=== PATIENT | female | born 1970 | race Caucasian/White ===

== ENCOUNTER 2021-12-14 09:02 | Outpatient (CLI) | payer OTHER, SELFPAY ==
--- OUTSIDE RECORDS SUMMARY | 2021-12-14 09:06 | XMS_ITS | Encounter Summary ---
:1970 Author Organization [place] Address [address] [place] [address] Care Team Providers Name Role Phone Clinic, [facility] Primary Care Provide r Bernardo Nguyen MD Unavailable [phone] Reason for Referral Consultation (Routine) - Closed Specialty Diagnoses / Procedures Referred By Contact Refer red To Contact Medical Oncology Diagnoses Family history of carrier of genetic disease Generic External Data Department Referral ID Status Reason Start Date Expiration Date Visits Requ ested Visits Authorized [id number] Closed 12/28/2019 12/27/2020 1 1 Scheduling Instructions Referred for Genetic Counseling for fami ly history of cancer by Katherine Briceño PA-C. 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 Encounter Details Date Type Department Care Team Description 12/28/2019 Transcribe Orders GENERIC EXTERNAL Provider, Generic F amily history of carrier of genetic disease (Primary Dx); DATA DEPARTMENT External Data Personal hi story of malignant neoplasm of thyroid Social History Tobacco Use Types Packs/Day Years Used Date Smoking Tobacco: Never Smokeless Tobacco: Never Alcohol Use Standard Drinks/Week Comments No 0 (1 standard drink = 0.6 oz pure alcoho l) Sex Assigned at Date Recorded Not on file documented as of this encounter Plan of Treatment Scheduled Referrals Name Type Priority Associated Diagnoses Order S chedule Oncology/Hematology Referral Routine Family History Of Ord ered: 12/28/2019 Adult Referral Carrier Of Genetic Disease documented as of this encounter Visit Diagnoses Diagnosis Family history of carrier of genetic dis ease - Primary Family history of genetic disease kala dunn Personal history of malignant neoplasm o f thyroid documented in this encounter Care Teams Cutter Down Relationship Specialty Start Date End Date Clinic, [facility] PCP - General 07/01/[address] [place] [address] Bernardo Nguyen MD MD Neurology 07/25/[address] [place] [id number] documented as of this encounter
--- OUTSIDE RECORDS SUMMARY | 2021-12-14 09:06 | XMS_ITS | Encounter Summary ---
:1970 Author Organization [place] Address [address] [place] [address] Care Team Providers Name Role Phone Clinic, [facility] Primary Care Provide r Bernardo Nguyen MD Unavailable [phone] Reason for Visit Reason Onset Date Comments *-*INCOMING RECORDS*-* 09/26/2016 Encounter Details Date Type Department Care Team Description 09/26/2016 PRE VISIT [facility] Bernardo Nguyen *-*INCOMI RECORDS*-* Multiple Sclerosis MD [facility] [address] [id number] Social History Tobacco Use Types Packs/Day Years Used Date Smoking Tobacco: Never Alcohol Use Standard Drinks/Week Comments No 0 (1 standard drink = 0.6 oz pure alcoho l) Sex Assigned at Date Recorded Not on file documented as of this encounter Miscellaneous Notes Telephone Encounter - Dominga Taveras CMA - 09/30/2016 2:35 PM CDT Received imaging from [facility], sent to film room. MR head 06/19/16 MR T-spine 06/19/16 MR C-spine 06/13/16 Telephone Encounter - Analia Rodriguez - 09/30/2016 10:37 AM CDT Records received from [facility]. Included Office notes: 09/03/16, 07/22/16, 06/24/16, 05/29/16 Radiology reports: MRI head 06/19/16 MRI thoracic 06/19/16 MRI cervical 06/13/16 Lumbar puncture 06/28/16 Telephone Encounter - Dominga Taveras CMA - 09/26/2016 7:28 AM CDT 1. Date/reason for appt: 10/04/16, [place] 2. Referring provider: Self 3. Call to patient (Yes / No - short description): No, referred 4. Previous care at / records requested from: [facility]- faxed cover sheet. documented in this encounter Plan of Treatment Not on filedocumented as of this encounter Visit Diagnoses Not on filedocumented in this encounter Care Teams Director Of Exhibit Development Relationship Specialty Start Date End Date Clinic, [facility] PCP - General 07/01/[address] [place] [address] Bernardo Nguyen MD MD Neurology 07/25/[address] [place] [address] documented as of this encounter
--- OUTSIDE RECORDS SUMMARY | 2021-12-14 09:06 | XMS_ITS | Clinical Summary ---
:1970 Author Organization [place] Address [address] [place] [address] Care Team Providers Name Role Phone Clinic, [facility] Primary Care Provide r Bernardo Nguyen MD Unavailable [phone] Allergies Active Allergy Reactions Severity Noted Date Comments Hydrocortisone 07/01/2016 Medications Medication Sig Dispensed Refills Start Date End Date Status CELEXA 40 MG OR TABS 1 TABLET DAILY 0 0 02/18/2002 Active AUGUST 180 MG OR TABS 1 TABLET DAILY 30 6 09/20/2002 Active MECLIZINE HCL 12.5 MG OR 1 TABLET 3 20 0 10/26/2002 Active TABS TIMES DAILY NEEDED Cholecalciferol 5000 Daily 0 Active units TABS PARoxetine (PAXIL) 30 MG Daily 0 09/26/2017 Active tablet Active Problems Problem Noted Date Migraine with aura 02/18/2002 Overview: Problem list name updated by automated p revaess. Provider to review Allergic rhinitis due to other allergen 02/18/2002 Other anxiety states 02/18/2002 Family History Patient is adopted Medical History Relation Comments Cancer Mother of leukemia Diabetes No family hx of Relation Status Comments Mother Social History Tobacco Use Types Packs/Day Years Used Date Smoking Tobacco: Never Smokeless Tobacco: Never Tobacco Cessation: Counseling Given: Yes Alcohol Use Standard Drinks/Week Comments No 0 (1 standard drink = 0.6 oz pure alcoho l) Sex Assigned at Date Recorded Not on file Last Filed Vital Signs Vital Sign Reading Time Taken Comments Blood Pressure 104/50 10/17/2017 9:04 AM CDT Pulse 63 07/01/2016 5:59 PM CDT Temperature 36.3 ??C (97.4 ??F) 07/01/2016 5:59 PM CDT Respiratory Rate 16 07/01/2016 5:59 PM CDT Oxygen Saturation 100% 07/01/2016 8:19 PM CDT Inhaled Oxygen Concentration - - Weight 70.8 kg (156 lb) 10/17/2017 9:04 AM CDT Height 167.6 cm (5' 6) 10/17/2017 9:04 AM CDT Body Mass Index 25.18 10/17/2017 9:04 AM CDT Plan of Treatment Health Maintenance Due Date Last Done Comments ADVANCE CARE PLANNING 1970 ANNUAL REVIEW OF HM ORDERS 1971 CT COLONOGRAPHY 1971 FIT-DNA (Cologuard) 1971 FIT 1971 FLEX SIG 1970 MAMMO SCREENING 1971 COVID-19 Vaccine (#1) 1971 COLONOSCOPY 1981 COLORECTAL CANCER SCREENING 1981 HIV SCREENING 1986 HEPATITIS C SCREENING 1989 HEPATITIS B IMMUNIZATION (2 03/19/1999 02/19/1999 of 3 - 3-dose series) YEARLY PREVENTIVE VISIT 02/18/2003 02/18/2002 PAP 02/19/2005 02/19/2002 LIPID 02/07/2016 02/19/2002 ZOSTER IMMUNIZATION (1 of 2) 2021 PHQ-2 (once per calendar 02/10/2021 year) INFLUENZA VACCINE (#1) 2021 02/15/2004 DTAP/TDAP/TD IMMUNIZATION (2 09/27/2027 09/26/2017, - Td or Tdap) 02/22/1998 IPV IMMUNIZATION Aged Out No longer eligi ble based on patient's age to complete this to pic MENINGITIS IMMUNIZATION Aged Out No longe r eligible based on patient's age to complete this to pic Pneumococcal Vaccine: Aged Out No longer eligible based Pediatrics (0 to 5 Years) and on patient's age to At-Risk Patients (6 to 64 comple te this topic Years) Insurance Payer Benefit Plan / Subscriber ID Effective Dates Phone Addre ss Type Group BC[place] OF [place] [id number] 2016-Marshal [phone] [address] [address] Indemnity t 0 [place] [address] (Home) W [phone] [place] ([place]) [phone] Agata Sheridan Personal/Family Self 1970 [address] (Home) [place] [address] Care Teams Manager Relocation Relationship Specialty Start Date End Date Clinic, [facility] Medical PCP - General 07/01/[address] [place] [address] Bernardo Nguyen MD MD Neurology 07/25/[address] [place] [address]
--- OUTSIDE RECORDS SUMMARY | 2021-12-14 09:06 | XMS_ITS | Encounter Summary ---
:1970 Author Organization [place] Address [address] [place] [address] Care Team Providers Name Role Phone Clinic, [facility] Primary Care Provide r Bernardo Nguyen MD Unavailable [phone] Reason for Visit Reason Comments Pain Encounter Details Date Type Department Care Team Description 10/17/2017 Office Visit [facility] Gil Barajass n euroma of right foot (Primary Dx); [facility] [place] N[facility] [place] Metatarsalgia, right foot; [address] [address] [place] Capsulitis of metatarsophalangeal (MTP) joint of right foot [address] [place] [address] [phone] Social History Tobacco Use Types Packs/Day Years Used Date Smoking Tobacco: Never Smokeless Tobacco: Never Tobacco Cessation: Counseling Given: Yes Alcohol Use Standard Drinks/Week Comments No 0 (1 standard drink = 0.6 oz pure alcoho l) Sex Assigned at Date Recorded Not on file documented as of this encounter Last Filed Vital Signs Vital Sign Reading Time Taken Comments Blood Pressure 104/50 10/17/2017 9:04 AM CDT Pulse - - Temperature - - Respiratory Rate - - Oxygen Saturation - - Inhaled Oxygen Concentration - - Weight 70.8 kg (156 lb) 10/17/2017 9:04 AM CDT Height 167.6 cm (5' 6) 10/17/2017 9:04 AM CDT Body Mass Index 25.18 10/17/2017 9:04 AM CDT documented in this encounter Patient Instructions Patient InstructionsSachluz, Sharron Ramesh MA - 10/17/2017 9:00 AM CDT Thank you for choosing [facility]! DR. BARAJAS'S CLINIC LOCATIONS: FRIDAY - A[place]Friday - [place] [address] [facility] [address] [place] [address] [place] [address] [place] [address] [phone] FRIDAY AM - [place] FRIDAY PM - [place] [address] [place] [address] [place], [place] [address] Friday - [place] SET UP SURGERY: [phone] [address] APPOINTMENTS: [phone] [place] [address] BILLING QUESTIONS: [phone] FAX NUMBER: [phone] Follow Up: 3 weeks Body Mass Index (BMI) Many things can cause foot and ankle problems. Foot structure, activity level, foot mechanics and injuries are common causes of pain. One very important issue that often goes unmentioned, is body weight. Extra weight can cause increased stress on muscles, ligaments, bones and tendons. Sometimes just afew extra pounds is all it takes to put one over her/his threshold. Without reducing that stress, itcan be difficult to alleviate pain. Some people are uncomfortable addressing this issue, but we feelit is important for you to think about it. As Foot & Ankle specialists, our job is addressing the lower extremity problem and possible causes. Regarding extra body weight, we encourage patients to discuss diet and weight management plans with their primary care doctors. It is this team approach that gives you the best opportunity for pain relief and getting you back on your feet. EDWARD'S NEUROMA What is a Edward's Neuroma? Edward's neuroma is an enlargement or thickening of a nerve in the foot. It is also sometimes referred to as an intermetatarsal neuroma, interdigital neuroma, Edward's metatarsalgia (pain in the metatarsal head area), jay-neural fibrosis (scar tissue around a nerve) or entrapment neuropathy (abnormalnerve due to compression). A Edward's neuroma most commonly occurs in the third interspace between the third and fourth toes, followed by the second interspace between the second and third toes. Edward's neuromas have also occurred in the fourth and first interspaces, but these are rare. If you have aMorton's neuroma, there is a 15% chance it will occur bilaterally (on both feet). Edward's neuromas occur most commonly in women who are between 30 to 50 years old. The reason they are more common in women is thought to be due to the shoes women wear. What Causes a Edward's Neuroma? A Edward's neuroma is thought to be caused by trauma to the nerve, but scientists are still not sureabout the exact cause of the trauma. The trauma may be caused by the metatarsal heads, the deep transverse intermetatarsal ligament (holds the metatarsal heads together) or an intermetatarsal bursa (fluid-filled sac). All of these structures can cause compression/trauma on the nerve which initially causes swelling and injury in the nerve. Over time if the compression/trauma continues, the nerve repairs itself with very fibrous tissue that leads to enlargement and thickening of the nerve. Other causes of trauma to the nerve may include; overpronation (foot rolls inward), hypermobility (too much motion), cavo varus (high arch foot) and excessive dorsiflexion (toes bend upward) of the toes. These biomechanical (how the foot moves) factors may cause trauma to the nerve with every step. If the nerve becomes irritated and enlarged then it takes up more space and gets even more compressed and irritated. It becomes a vicious cycle. Signs & Symptoms of a Edward's Neuroma - Pain (sharp, stabbing, throbbing, shooting) - Numbness - Tingling or pins & needles - Burning - Cramping - A feeling that you are stepping on something or that something is in your shoe - Initially the symptoms may happen once in a while, but as the condition gets worse, the symptoms may happen all of the time - It usually feels better by taking off your shoe and massaging your foot Diagnosis/Tests (Exam) for a Edward's Neuroma Your crna (foot doctor) will ask many questions about your signs and symptoms and will performa physical exam. Some of the exams may include a web space compression test. This is done by squeezing the metatarsals together with one hand and using the thumb and index finger of the other hand to compress the affected web space to reproduce the pain/symptoms. A palpable click (Mona's click) is usually present. This test may also cause pain to shoot into the toes and that is called a Tinel's sign. Angeles's test involves squeezing the metatarsals together and moving the toes up and down for 30seconds. This will usually cause pain or it will bring on your other symptoms. Durant's sign is positive when you stand and the affected toes spread apart. A Edward's neuroma is usually diagnosed based on the history and physical exam findings, but sometimes other tests such as an x-ray, ultrasound or an MRI are needed. Treatment of a Edward's Neuroma 1. Footwear changes: Wear shoes that are wide and deep in the toe box so they do not put pressure on your toes and metatarsals. Avoid wearing high heels because they cause increased pressure on the ball of your foot (forefoot). 2. Metatarsal pads: These help to lift and separate the metatarsal heads to take pressure off of the nerve. They are placed just behind where you feel the pain, not on top of the painful spot. 3. Activity modification: For example, you may try swimming instead of running until your symptoms go away. 4. Taping 5. Icing 6. NSAIDs (anti-inflammatories): aleve, ibuprofen, etc. 7. Arch supports or orthotics: These help to control some of the abnormal motion in your feet. The abnormal motion can lead to extra torque and pressure on the nerve. 8. Physical Therapy 9. Cortisone injection: Helps to decrease the size of the irritated, enlarged nerve. 10. Sclerosing Alcohol injection: Helps to destroy the nerve chemically. Does cause permanent numbness. 11. Surgery: If conservative treatment does not help surgery may be needed. Surgery may involve cutting out the nerve or cutting the intermetatarsal ligament. Studies have shown surgery has an 80-85% success rate. This will result in numbness. Prevention of a Edward's Neuroma -Avoid wearing narrow, pointed toe shoes -Avoid wearing high heel shoes OVER THE COUNTER INSERTS [employer] SpeMiami2Vegas Power Step Walk-Fit Arch Cradles Most of these can be found at your local [employer], [employer], or online: 1. https://www.[employer]/en-us/ 2. Https://[employer]/ 3. Https://www.Clothes Horseteps.[employer]/ A good high quality over the counter insert should cost around $40-$50 SMITH THERAPY Many aches and pains throughout the foot and ankle can be helped with many simple treatments. This is usually described as SMITH Therapy. P - Protection - often times, inflammation/pain in the lower extremity is not able to improve simplybecause the areas involved are never allowed to rest. Every step we take can bother the problematic area. Protecting those areas is an important step in the healing process. This may involve a walking cast boot, a special insert/orthotic device, an ankle brace, or simply avoiding barefoot walking. R - Rest - in addition to protecting the foot/ankle, resting is an important, but often times difficult, treatment option. Getting off your feet when they bother you, and specifically avoiding activities that cause pain/discomfort, are very beneficial to prevent, and treat, foot/ankle pain. I - Ice - icing regularly can help to decrease inflammation and swelling in the foot, thus decreasing pain. Using an ice pack or a bag of frozen veggies works very well. Ice for 20 minutes multiple times per day as needed. Do not place the ice directly on the skin as this can cause tissue damage. C - Compression - using a compression wrap or an GINI wrap can help to decrease swelling, which can help to decrease pain. Wearing the wraps is generally not needed at night, but they should be worn on a regular basis when you are going to be on your feet for prolonged periods as gravity tends to pull fluids down to your feet/ankles. E - Elevation - elevating your lower extremities multiple times daily for 15-20 minutes can help to decrease swelling, which works well in decreasing pain levels. NSAID/Tylenol - Anti-inflammatories like Aleve or ibuprofen, and/or a pain medication, such as Tylenol, can help to improve pain levels and get the issue resolved sooner rather than later. Anyone with liver issues should be careful with Tylenol, and anyone with high blood pressure or heart, stomach orkidney issues should be careful with anti-inflammatories. Please ask if you have questions about these medications, including dosage. documented in this encounter Progress Notes Oz Barajas DPM - 10/17/2017 9:00 AM CDT Foot & Ankle Surgery October 17, 2017 CC: right foot pain periodically I was asked to see Agata Sheridan regarding the chief complaint by: Jos Jimenez PA-C HPI: Pt is a 47 year old female who presents with above complaint. R foot pain x 6 months. on and off for years. Describes burning, aching, shooting pains, 10/10 at night, worse with laying down?. She has tried biofreeze for treatment. She was treated for gout in the past. Now arch has gone awayright foot. Can wake up with pain in R foot. She has a compensatory gait 2/2 to pain. Pain better with shoes. She states toes 4,5 R foot are swollen. ROS: Pos for CC. The patient denies current nausea, vomiting, chills, fevers, belly pain, calf pain,chest pain or SOB. Complete remainder of ROS is otherwise neg. VITALS: Vitals: 10/17/17 0904 BP: 104/50 Weight: 156 lb (70.8 kg) Height: 5' 6 (1.676 m) PMH: Past Medical History: Diagnosis Date ??? Allergic rhinitis due to other allergen ??? Other anxiety states SXHX: Past Surgical History: Procedure Laterality Date ??? NO HISTORY OF SURGERY MEDS: Current Outpatient Prescriptions Medication ??? AUGUST 180 MG OR TABS ??? CELEXA 40 MG OR TABS ??? Cholecalciferol 5000 units TABS ??? MECLIZINE HCL 12.5 MG OR TABS ??? PARoxetine (PAXIL) 30 MG tablet No current facility-administered medications for this visit. ALL: Allergies Allergen Reactions ??? Cortisol [Hydrocortisone] FMH: Family History Problem Relation Age of Onset ??? Adopted: Yes ??? Cancer Mother of leukemia ??? Diabetes No family hx of SocHx: Social History Social History ??? Marital status: Spouse name: ty ??? Number of children: 0 ??? 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 Smoking status: Never Smoker ??? Smokeless tobacco: Never Used ??? Alcohol use No ??? Drug use: No ??? Sexual activity: Yes Partners: Male Comment: trying to get Other Topics Concern ??? Not on file Social History Narrative EXAMINATION: Gen: No apparent distress Neuro: A&Ox3, no deficits Psych: Answering questions appropriately for age and situation with normal affect Head: NCAT Eye: Visual scanning without deficit Ear: Response to auditory stimuli wnl Lung: Non-labored breathing on RA noted Abd: NTND per patient report Lymph: Neg for pitting/non-pitting edema BLE Vasc: Pulses palpable, CFT minimally delayed Neuro: Light touch sensation intact to all sensory nerve distributions without paresthesias Derm: Neg for nodules, lesions or ulcerations MSK: right lower extremity - very tender 3rd interspace. 4th/5th MPJ/met mildly tender. Mild hammertoes lesser digits, I don't appreciate much swelling today. 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 Edward's neuroma right lower extremity -comfortable shoe gear -OTC inserts -RICE/NSAID prn -consider diagnostic/therapeutic injection 2. 4th/5th metatarsalgia and MPJ capsulitis -comfortable shoe gear; minimize shoeless ambulation -OTC insert for arch support -RICE/NSAID vs tylenol prn based on pain -consider walking boot, CAM, orthotics, imaging Follow up: 3 weeks or sooner with acute issues Patient's medical history was reviewed today Body mass index is 25.18 kg/(m^2). Weight management plan: Patient was referred to their PCP to discuss a diet and exercise plan. Oz Barajas DPM FACFAS FACFAOM Podiatric Foot & Ankle Surgeon [facility] [phone] documented in this encounter Plan of Treatment Not on filedocumented as of this encounter Visit Diagnoses Diagnosis Edward's neuroma of right foot - Primary Metatarsalgia, right foot Capsulitis of metatarsophalangeal (MTP) joint of right foot documented in this encounter Care Teams Loader Operator Relationship Specialty Start Date End Date Clinic, [facility] PCP - General 07/01/[address] [place] [address] Bernardo Nguyen MD MD Neurology 07/25/[address] [place] [address] documented as of this encounter
--- OUTSIDE RECORDS SUMMARY | 2021-12-14 09:06 | XMS_ITS | Encounter Summary ---
:1970 Author Organization [place] Address [address] [place] [address] Care Team Providers Name Role Phone Clinic, [facility] Primary Care Provide r Reason for Visit Reason Comments Headache Encounter Details Date Type Department Care Team Description 07/01/2016 Emergency [facility] Arpita Paulino [facility] MD John headache, unspecified Dept [facility] chronicity pattern, [address] unspecified headache [place], [place] [address] [place] [id number] [facility] [phone] [place], [place] [id number] (Wo rk) Social History Tobacco Use Types Packs/Day Years Used Date Smoking Tobacco: Never Alcohol Use Standard Drinks/Week Comments No 0 (1 standard drink = 0.6 oz pure alcoho l) Sex Assigned at Date Recorded Not on file documented as of this encounter Last Filed Vital Signs Vital Sign Reading Time Taken Comments Blood Pressure 106/67 07/01/2016 8:01 PM CDT Pulse 63 07/01/2016 5:59 PM CDT Temperature 36.3 ??C (97.4 ??F) 07/01/2016 5:59 PM CDT Respiratory Rate 16 07/01/2016 5:59 PM CDT Oxygen Saturation 100% 07/01/2016 8:19 PM CDT Inhaled Oxygen Concentration - - Weight - - Height - - Body Mass Index - - documented in this encounter Discharge Instructions Discharge InstructionsArpita Paulino MD - 07/01/2016 8:18 PM CDT Discharge Instructions Headache You were seen today for a headache. Headaches may be caused by many different things such as muscle tension, sinus inflammation, anxiety and stress, having too little sleep, too much alcohol, some medical conditions or injury. You may have a migraine, which is caused by changes in the blood vessels inyour head. At this time your doctor does not find that your headache is a sign of anything dangerousor life-threatening. However, sometimes the signs of serious illness do not show up right away. If you have new or worse symptoms, you may need to be seen again in the emergency department or by your primary doctor. Return to the Emergency Department if: ??? You get a fever of 101 F or higher. ??? Your headache gets much worse. ??? You get a stiff neck with your headache. ??? You get a new headache that is different or worse than headaches you have had before. ??? You are vomiting and can???t keep food or water down. ??? You have blurry or double vision or other problems with your eyes. ??? You have a new weakness on one side of your body. ??? You have difficulty with balance which is new. ??? You or your family thinks you are confused. ??? You have a seizure or convulsion. What can I do to help myself? Pain medications - You may take a pain medication such as Tylenol?? (acetaminophen), Advil??, Nuprin?? (ibuprofen) or Aleve?? (naproxen). If you have been given a narcotic such as Vicodin?? (hydrocodone with acetaminophen), Percocet?? (oxycodone with acetaminophen), codeine, or a muscle relaxant such as Flexeril?? (cyclobenzaprine) or Soma?? (carisoprodol), do not drive for four hours after you have taken it. If the narcotic contains Tylenol?? (acetaminophen), do not take Tylenol?? with it. All narcotics will cause constipation, so eat a high fiber diet. ??? Take a pain reliever as soon as you notice symptoms. Starting medications as soon as you start to have symptoms may lessen the amount of pain you have. ??? Relaxing in a quiet, dark room may help. ??? Get enough sleep and eat meals regularly. ??? Schedule an appointment with your primary physician as instructed, or at least within 1 week. ??? You may need to watch for certain foods or other things which may trigger your headaches. Keeping a journal of your headaches and possible triggers may help you and your primary doctor to identify things which you should avoid which may be causing your headaches. If you were given a prescription for medicine here today, be sure to read all of the information (including the package insert) that comes with your prescription. This will include important information about the medicine, its side effects, and any warnings that you need to know about. The pharmacist who fills the prescription can provide more information and answer questions you may have about the medicine. If you have questions or concerns that the pharmacist cannot address, please call or return to the Emergency Department. Opioid Medication Information Pain medications are among the most commonly prescribed medicines, so we are including this information for all our patients. If you did not receive pain medication or get a prescription for pain medicine, you can ignore it. You may have been given a prescription for an opioid (narcotic) pain medicine and/or have received apain medicine while here in the Emergency Department. These medicines can make you drowsy or impaired. You must not drive, operate dangerous equipment, or engage in any other dangerous activities whiletaking these medications. If you drive while taking these medications, you could be arrested for DUI, or driving under the influence. Do not drink any alcohol while you are taking these medications. Opioid pain medications can cause addiction. If you have a history of chemical dependency of any type, you are at a higher risk of becoming addicted to pain medications. Only take these prescribed medications to treat your pain when all other options have been tried. Take it for as short a time and asfew doses as possible. Store your pain pills in a secure place, as they are frequently stolen and provide a dangerous opportunity for children or visitors in your house to start abusing these powerful medications. We will not replace any lost or stolen medicine. As soon as your pain is better, you should flush all your remaining medication. Many prescription pain medications contain Tylenol?? (acetaminophen), including Vicodin??, Tylenol #3??, [place]??, Lortab??, and Percocet??. You should not take any extra pills of Tylenol?? if you are using these prescription medications or you can get very sick. Do not ever take more than 3000 mg of acetaminophen in any 24 hour period. All opioids tend to cause constipation. Drink plenty of water and eat foods that have a lot of fiber, such as fruits, vegetables, prune juice, apple juice and high fiber cereal. Take a laxative if you don???t move your bowels at least every other day. Miralax??, Milk of Magnesia, Colace??, or Senna?? can be used to keep you regular. Remember that you can always come back to the Emergency Department if you are not able to see your regular doctor in the amount of time listed above, if you get any new symptoms, or if there is anything that worries you. documented in this encounter Medications at Time of Discharge Medication Sig Dispensed Refills Start Date End Date AUGUST 180 MG OR TABS 1 TABLET DAILY 30 6 3 CELEXA 40 MG OR TABS 1 TABLET DAILY 0 0 02/18/2002 MECLIZINE HCL 12.5 MG OR 1 TABLET 3 TIMES 20 0 10/26 TABS DAILY NEEDED documented as of this encounter ED Notes Radha Ferreira RN - 07/01/2016 5:58 PM CDT Patient had a lumbar puncture on Friday to aid in the diagnosis of MS. Pt started having a headache last night. She states that her neck is sore as well. She has been having hot flashes. ABCs intact, alert and oriented x 4. Arpita Paulino MD - 07/01/2016 5:56 PM CDT History Chief Complaint: Headache HPI: Agata Sheridan is a 46 year old female with a history of migraines and anxiety who presents with aheadache. The patient recently had a lumbar puncture performed on 06/28/2016 to further evaluate demyelinating lesions that were incidentally noted on a c-spine MRI and further investigate the diagnosisof MS. Last night, she started having mild headache, but rested as she thought this was a spinal headache secondary to her recent procedure. However, throughout the day today her headache has been progressively worsening. Of note, her headache symptoms are the same when laying flat and when sitting upright. She went to urgent care for evaluation of a possible sinus infection given her additional nasal congestion, but was then referred to the ED. Additionally, she denies visual disturbances, speech difficulty, weakness, chills, fever, nausea, or cough or nasal congestion. She describes her headache as a sharp sensation behind her eyes and nose. Neck is chronically stiff secondary to prior injury but no change from baseline and normal ROM of her neck. No trauma. No back pain. Allergies: Cortisol Medications: Meclizine HCl August Celexa Past Medical History: Migraine with aura Anxiety Thyroid cancer Past Surgical History: Thyroidectomy Family History: Leukemia- Mother Social History: Smoking status: Never Smoker Alcohol use: No Marital Status: Review of Systems Constitutional: Negative for chills and fever. Eyes: Negative for visual disturbance. Gastrointestinal: Negative for nausea. Musculoskeletal: Positive for neck stiffness. Neurological: Positive for headaches. Negative for speech difficulty and weakness. All other systems reviewed and are negative. Physical Exam Patient Vitals for the past 24 hrs: BP Temp Temp src Pulse Resp SpO2 07/01/162001 - - - - - 99 % 07/01/162000 106/67 - - - - - 07/01/16 1930 108/72 - - - - 99 % 07/01/161904 - - - - - 100 % 07/01/16 190 118/73 - - - - - 07/01/16 1759 116/78 97.4 ??F (36.3 ??C) Oral 63 16 99 % Physical Exam: Gen: alert HEENT: PERRL, oropharynx clear Neck: normal ROM CV: RRR, no murmurs Pulm: breath sounds equal, lungs clear Abd: Soft, nontender Back: no evidence of injury, no cva tenderness MSK: no deformity, moves all extremities Skin: no rash Neuro: alert, oriented x3, PERRL, EOMI, CN 2-7 and 9-12 intact, 5/5 grasp BUE, 5/5 elbow flexion andextension BUE, 5/5 shoulder abduction BUE, 5/5 hip flexion, knee flexion, knee extension, plantar and dorsiflexion BLE, no pronator drift, normal gait, negative romberg, no dysdiadochokinesia, normal [id number] testing Emergency Department Course Interventions: 1900- Reglan 10 mg IV 1900- Toradol 30 mg IV 1900- Benadryl 12.5 mg IV Emergency Department Course: Past medical records, nursing notes, and vitals reviewed. 1838: I performed an exam of the patient and obtained history, as documented above. IV inserted. The above interventions were administered. 2016: I rechecked the patient. The patient is feeling much better and would like to return home at this time. Findings and plan explained to the Patient. Patient discharged home with instructions regarding supportive care, medications, and reasons to return. The importance of close follow-up was reviewed. Impression & Plan Medical Decision Making: Agata Sheridan is a 46 year old female who presents for a headache. She has no other neurological complaints. She recently had an LP performed, but has no evidence of an infectious process nor spinal headache. The patient was treated symptomatically as noted above. She had recent neuroimaging concerning for demyelinating process. There was no thunderclap headache to suggest subarachnoid hemorrhage. Therefore, no further imaging was obtained. At this time, the patient was treated symptomatically withrelief. The patient was concerned for sinusitis, however, she was afebrile and has no nasal drainageto suggest a need for antibiotics. Patient symptomatically improved with the above interventions. Return for worsening or neuro changes or fevers. She should follow up with primary care and return for worsening symptoms. Diagnosis: ICD-10-CM 1. Nonintractable headache, unspecified chronicity pattern, unspecified headache type R51 Disposition: Discharged to home. Desiree Flaherty 07/01/2016 [facility] EM[facility] I, Desiree Flaherty, am serving as a scribe at 6:39 PM on 07/01/2016 to document services personally performed by Arpita Paulino MD based on my observations and the provider's statements to me. Arpita Paulino MD 07/02/16 0863 documented in this encounter Plan of Treatment Not on filedocumented as of this encounter Visit Diagnoses Diagnosis Nonintractable headache, unspecified chr onicity pattern, unspecified headache type documented in this encounter Administered Medications Inactive Administered Medications - up to 3 most recent administrations Medication Order MAR Action Action Date Dose Rate Site diphenhydrAMINE (BENADRYL) Given 07/01/2016 7:00 PM CDT 12.5 mg injection 12.5 mg 12.5 mg, Intravenous, ONCE, On Fri07/01/16 at 1852, For 1 dose ketorolac (TORADOL) injection 30 mg Given 07/01/2016 7:00 PM CDT 30 mg 30 mg, Intravenous, ONCE, On Fri07/01/16 at 1852, For 1 dose metoclopramide (REGLAN) injection 10 mg Given 07/01/2016 7:00 PM CDT 10 mg 10 mg, Intravenous, ONCE, On Fri07/01/16 at 1852, For 1 dose, Avoid use if patient has full bowel obstruction or perforation. Irritant. documented in this encounter Active and Recently Administered Medications Times are shown in CDT. Scheduled Medication Order 06/29/2016 06/30/2016 07/01/2016 diphenhydrAMINE (BENADRYL) injection 12.5 mg (COMPLETED) 1900 (Given - Provider: Clinton Rojas RN) 12.5 mg, Intravenous, ONCE, Fri07/01/16 at 1852, For 1 dose ketorolac (TORADOL) injection 30 mg (COMPLETED) 1900 (Given - Provider: Clinton Rojas RN) 30 mg, Intravenous, ONCE, Fri07/01/16 at 1852, For 1 dose metoclopramide (REGLAN) injection 10 mg (COMPLETED) 1900 (Given - Provider: Clinton Rojas RN) 10 mg, Intravenous, ONCE, Fri07/01/16 at 1852, For 1 dose, Avoid use if patient has full bowel obstruction or perforation. Irritant. documented in this encounter Care Teams Launch Engineer Relationship Specialty Start Date End Date [facility], [facility] PCP - General 07/01/[address] [place] [id number] documented as of this encounter
--- OUTSIDE RECORDS SUMMARY | 2021-12-14 09:07 | XMS_ITS | Encounter Summary ---
:1970 Author Organization [place] Address [address] [place] [address] Care Team Providers Name Role Phone Jeanette Christopher MD Primary Care Provider Reason for Visit Reason Comments Dizziness Encounter Details Date Type Department Care Team Description 10/25/2002 Office Visit [facility] MD [place] (Primary Dx) [address] [place] [phone] Social History Tobacco Use Types Packs/Day Years Used Date Smoking Tobacco: Never Alcohol Use Standard Drinks/Week Comments No 0 (1 standard drink = 0.6 oz pure alcoho l) Sex Assigned at Date Recorded Not on file documented as of this encounter Last Filed Vital Signs Vital Sign Reading Time Taken Comments Blood Pressure 104/60 10/25/2002 7:30 PM CDT Pulse - - Temperature 36.4 ??C (97.5 ??F) 10/25/2002 7:30 PM CDT Respiratory Rate - - Oxygen Saturation - - Inhaled Oxygen Concentration - - Weight 70.8 kg (156 lb) 10/25/2002 7:30 PM CDT Height - - Body Mass Index 24.8 09/17/2002 11:00 AM CDT documented in this encounter Progress Notes 10/25/2002 7:30 PM CDT we discussed recent 6 days of vertigo and this is related to ?. we discussed the semicircular canals and the symptom of vertigo and the generally benign nature of vestibular malfunction. Exam of the ear s is otherwise normal and pt will use some 12.5 mg antivert for a short time and understands that thi s benign but irritating problem can last several weeks sometimes or even more but hopefully will have a rapid dissolution of the problem. It is bothering her enough that medication could be helpful. documented in this encounter Nursing Notes 10/25/2002 7:30 PM CDT >> DAWIT BROWN 10/25/2002 7:52 pm Pt c/o dizziness, hard to focus,sweats, nausea x 1 week. Last LMP prior was august 16. documented in this encounter Plan of Treatment Not on filedocumented as of this encounter Visit Diagnoses Diagnosis Labyrinthitis, unspecified - Primary documented in this encounter Care Teams Coin Machine Supervisor Relationship Specialty Start Date End Date Jeanette Christopher MD PCP - General 03/12/02 03/05/12 [address] [id number] documented as of this encounter
--- OUTSIDE RECORDS SUMMARY | 2021-12-14 09:07 | XMS_ITS | Encounter Summary ---
:1970 Author Organization [facility] Address [address] 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 BETA HEMOLYTIC Routine 06/16/2005 10:00 AM Result s for this STREP GROUP A CDT procedure are in CULTURE the results section. documented in this encounter Results Rapid strep screen (06/16/2005 10:00 AM CDT) Component Value Ref Test Analysis Performed At [facility] Range Method Time Signature Specimen Throat MISYS Description Micro Report FINAL [id number] MISYS Status Rapid Strep A NEGATIVE: No MISYS Screen Group A streptococcal antigen detected by immunoassay, await Comment: culture report. Specimen Anatomical Collection Method Collection Time Receive d Time (Source) Location / / Volume Laterality 06/16/2005 10:00 06/16/2005 9:53 AM CDT AM CDT Tre Peterson MD LAB - MICRO GENERAL ORDERABL ES Performing Organization Address City/[facility] Phon e Number MISYS Beta strep group A culture (06/16/2005 10:00 AM CDT) Component Value Ref Test Analysis Performed At [facility] Range Method Time Signature Specimen Throat MISYS Description Culture Micro No beta MISYS hemolytic Streptococcus Group A isolated Micro Report FINAL [id number] MISYS Status Specimen Anatomical Collection Method Collection Time Receive d Time (Source) Location / / Volume Laterality 06/16/2005 10:00 06/16/2005 AM CDT 12:46 PM CDT Tre Peterson MD LAB - MICRO GENERAL ORDERABL ES Performing Organization Address City/[facility] Phon e Number MISYS documented in this encounter Visit Diagnoses Not on filedocumented in this encounter Care Teams Spar Cap Beveler Relationship Specialty Start Date End Date Jeanette Christopher MD PCP - General 03/12/02 03/05/12 [address] [id number] documented as of this encounter
--- OUTSIDE RECORDS SUMMARY | 2021-12-14 09:07 | XMS_ITS | Encounter Summary ---
:1970 Author Organization [place] Address [address] [facility] 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 Encounter Details Date Type Department Care Team Description 02/18/2002 Office Visit [facility] Jeanette Christopher, [employer] Physicians EXAMINATION (Primary [address]) [address] [place] [phone] Social History Tobacco Use Types Packs/Day Years Used Date Smoking Tobacco: Never Alcohol Use Standard Drinks/Week Comments No 0 (1 standard drink = 0.6 oz pure alcoho l) Sex Assigned at Date Recorded Not on file documented as of this encounter Last Filed Vital Signs Vital Sign Reading Time Taken Comments Blood Pressure 98/60 02/18/2002 9:30 AM DISABILITY ADVOCATE Pulse 72 02/18/2002 9:30 AM DISABILITY ADVOCATE Temperature 36.7 ??C (98 ??F) 02/18/2002 9:30 AM DISABILITY ADVOCATE Respiratory Rate - - Oxygen Saturation - - Inhaled Oxygen Concentration - - Weight 70.8 kg (156 lb) 02/18/2002 9:30 AM DISABILITY ADVOCATE Height 170.2 cm (5' 7) 02/18/2002 9:30 AM DISABILITY ADVOCATE Body Mass Index 24.43 02/18/2002 9:30 AM DISABILITY ADVOCATE documented in this encounter Progress Notes 02/18/2002 9:30 AM DISABILITY ADVOCATE SUBJECTIVE: Agata Sheridan is an 32 year old woman who 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 Concerns nellie kennedy are: 1) wants to get , has lots of questions, 2) spent 15 or more minutes answering various questions relating to and pre- recommendations. Luis ballard's last menstrual period was 01/31/2002.. Periods are regular q 28-30 days, lasting 2 days. Dysmeno rrhea:mild, occurring first 1-2 days of flow. No intermenstrual bleeding, spotting, or discharge. Miko ust went off pill 2 months ago and unsure if there is a regular period yet. Current contraception: n one History of abnormal Pap smear: no Family history of uterine or ovarian cancer: no Regular self br east exam: no History of abnormal mammogram: no Family history of breast cancer: no History of abnorm al lipids: no Patient Active Problem List: CLASS MIGRAIN W/O MENTN INTRACTABLE[346.00] ALLERGIC RHINITIS NEC[477.8] ANXIETY STATE NEC[300.09] Review of patient's past medical history indicates: ALLERGIC RHINITIS NEC ANXIETY STATE NEC Review of patient's family history indicates: Adopted: Yes Cancer Mother Comment: of leukemia Diabetes No family hx of Social History Marital Status: Spouse Name: ty Years of Education: Number of children: 0 Social History Main Top ics Tobacco Use: Never Alcohol Use: No Drug Use: No Sexually Ac tive: Yes Partners with: Male Comment: trying to get Other Topics Concern None on file Social History Narrative None on file Review of patient's past surgica l history indicates: HISTORY OF SURGERY = NONE No prescriptions on file. Review of patient's allergies indicates: No Known Drug * There is no immunization histor y on file for this patient. Review Of Systems Ears/Nose/Throat: negative Respiratory: negative Card iovascular: negative Gastrointestinal: positive for nausea, no satiation. Genitourinary: negative OB JECTIVE: BP 98/60 Pulse 72 Temp 98 Ht 5' 7 (1.702m) Wt 156 lbs (70.761 kg) LMP 01/31/2002 General appearance: healthy,alert,no distress Skin: Skin color, texture, turgor normal. No rashes or lesions. Ears: negative Nose/Sinuses: Nares normal. Septum midline. Mucosa normal. No drainage or sin us tenderness. Oropharynx: Lips, mucosa, and tongue normal. Teeth and gums normal. Neck: Neck supple. No adenopathy. Thyroid symmetric, normal size,,Carotids without bruits. Lungs: negative,Percussion n ormal. Good diaphragmatic excursion. Lungs clear Heart: negative,PMI normal. No lifts, heaves, or thr ills. RRR. No murmurs, clicks gallops or rub Breasts: Inspection negative. No nipple discharge or ble eding. No masses. Abdomen: Abdomen soft, non-tender. BS normal. No masses, organomegaly Pelvic: Exter nal genitals normal, cervix appeared within normal limits V72.3 GYNECOLOGIC EXAMINATION (primary en counter diagnosis) Note: healthy female Plan: URINALYSIS NONAUTO W/O SCOPE, PAP SMEAR, PAP CASILLAS DLING FEE pt to find out about immunizations and make return appt if she needs varicella or MMR COntinue with PNV Routine discussion about exercise, diet, calcium intake, caffeine, smoking, drink ing, drugs, seat belts, aids, and hepatitis. Encouraged 100% seat belt use, and use of bike helmet if applicable and self breast exam q month. documented in this encounter Nursing Notes 02/18/2002 9:30 AM CST >> KYLE VASQUEZ 02/18/2002 9:52 am Pt. here for a comp. phy. exam. Questioned patient about current smoking habits. Pt. has never smoked. documented in this encounter Plan of Treatment Not on filedocumented as of this encounter Procedures Procedure Name Priority Date/Time Associated Diagnosis Comme nts HCL PAP SMEAR Routine 02/19/2002 10:47 Gynecologic Results fo r this AM DISABILITY ADVOCATE Examination procedure are i n the results section. HCL LIPID PANEL Routine 02/19/2002 1:09 AM Gynecologic Result s for this DISABILITY ADVOCATE Examination procedure are i n the results section. ZZCL AFF HEMOGLOBIN Routine 02/18/2002 10:54 Gynecologic Resu lts for this AM DISABILITY ADVOCATE Examination procedure are i n the results section. HC VENOUS COLLECTION Routine 02/18/2002 10:37 Gynecologic AM DISABILITY ADVOCATE Examination HCL URINALYSIS Routine 02/18/2002 9:56 AM Gynecologic Results for this NONAUTO W/O SCOPE DISABILITY ADVOCATE Examination procedure are in [facility] the results section. C PAP HANDLING FEE Routine 02/18/2002 9:51 AM Gynecologic DISABILITY ADVOCATE Examination documented in this encounter Results PAP SMEAR (02/19/2002 10:47 AM DISABILITY ADVOCATE) athologist Signature Unlabelled DNR [facility] Source DNR [facility] LMP [id number] [facility] Clinical [facility] History Comment: Therapy DNR [facility] Last Pap Diagnosis WITHIN NORMAL LIMITS [facility] PAP Date DNR [facility] Prev Bx Dx DNR [facility] Prev Bx Date DNR [facility] Addl Hx Info [facility] Statement of Adequacy [facility] [place] Comment: SATISFACTORY FOR INTERPRETATION ENDOCERVICAL COMPONENT (COLUMNAR AND/OR METAPLASTIC) IS PRESENT General Categorization DNR [facility] [place] Descriptive Diagnosis [facility] Comment: WITHIN NORMAL LIMITS Recommendations [facility] . [facility] Comment: PAP SMEARS ARE SUBJECT TO BOTH FALSE NE GATIVE AND FALSE POSITIVE RESULTS EVIDENCED BY DATA PUBLISHED IN THE MEDICAL LITERATURE. ??YOUR PATIE NT'S RESULT SHOULD BE INTERPRETED IN THIS CONTEXT, TOGETHER WITH THE PATIENT'S HISTORY AND CLINICAL FIND INGS. TESTING LOCATION ?? THIS TEST WAS PERFORMED AT [facility] ?? [address] [place] [address] ?? [place], [place] ?? [address] ?? PHONE NUMBERS FOR CYTOLOGY INQUIRIES , INCLUDING ?? SLIDE REQUESTS: ?EX T [id number] Specimen (Source) Anatomical Location Collection Method / Collectio n Time Received Time / Laterality Volume 02/18/2002 Jeanette Christopher MD LABORATORY Performing Organization Address City/[facility] Phon e Number [facility] A.M.A. LIPID PANEL (02/19/2002 1:09 AM DISABILITY ADVOCATE) [facility] gist Method Time Signature Comments [facility] Triglycerides 56 <150 MG/DL [facility] Cholesterol 122 <200 MG/DL [facility] Cholesterol 2 PERCENTILE [facility] Percentile HDL Cholesterol 54 >39 MG/DL [facility] LDL Cholesterol 57 <130 MG/DL [facility] Calculated Cholesterol/HDL 2.3 <4.4 [facility] Ratio Specimen (Source) Anatomical Location Collection Method / Collectio n Time Received Time / Laterality Volume 02/18/2002 Jeanette Christopher MD LABORATORY Performing Organization Address City/[facility]/ZIP Code Phon e Number [facility] HEMOGLOBIN (02/18/2002 10:54 AM DISABILITY ADVOCATE) athologist Signature Hemoglobin 14.2 12 - 16 [facility] GM/DL Specimen (Source) Anatomical Collection Method Collection Time Re ceived Time Location / / Volume Laterality 02/18/2002 10:54 AM DISABILITY ADVOCATE Jeanette Christopher MD LABORATORY Performing Organization Address City/State/ZIP Code Phon e Number [facility] URINALYSIS NONAUTO W/O SCOPE (02/18/2002 9:56 AM DISABILITY ADVOCATE) P athologist Signature Glucose Urine neg neg - neg [facility] mg/dL Albumin Urine neg neg - neg [facility] mg/dL Specimen (Source) Anatomical Collection Method Collection Time Re ceived Time Location / / Volume Laterality 02/18/2002 9:56 AM DISABILITY ADVOCATE Jeanette Christopher MD LABORATORY Performing Organization Address City/State/ZIP Code Phon e Number [facility] documented in this encounter Visit Diagnoses Diagnosis Gynecological examination - Primary documented in this encounter
--- OUTSIDE RECORDS SUMMARY | 2021-12-14 09:07 | XMS_ITS | Encounter Summary ---
:1970 Author Organization [facility] Address [address] [place] [id number] Care Team Providers Name Role Phone Saleem Jimenez Primary Care Provider Unknown, Unavailable Unavailable Encounter Details Date Type Department Care Team Description 10/31/2021 Travel Social History Tobacco Use Types Packs/Day Years Used Date Smoking Tobacco: Never Smokeless Tobacco: Never Alcohol Use Standard Drinks/Week Comments Not Currently 0 (1 standard drink = 0.6 oz pure alcoho l) Sex Assigned at Date Recorded Not on file COVID-19 Exposure Response Date Recorded In the last 10 days, have you been in contact with No / Unsu re 10/31/2021 7:58 AM CDT someone who was confirmed or suspected to have Coronavirus/COVID-19? 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
--- OUTSIDE RECORDS SUMMARY | 2021-12-14 09:07 | XMS_ITS | Encounter Summary ---
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
--- OUTSIDE RECORDS SUMMARY | 2021-12-14 09:07 | XMS_ITS | Encounter Summary ---
:1970 Author Organization [place] Address [address] [place] [address] Care Team Providers Name Role Phone Ellen Magana MD Primary Care Provider Reason for Visit Reason Comments Medication Request Encounter Details Date Type Department Care Team Description 09/20/2002 Telephone [facility] Ellen Magana MD Medication Request Physicians [address] [address] [address] [place] [address] [place] [address] [phone] Social History Tobacco Use Types Packs/Day Years Used Date Smoking Tobacco: Never Alcohol Use Standard Drinks/Week Comments No 0 (1 standard drink = 0.6 oz pure alcoho l) Sex Assigned at Date Recorded Not on file documented as of this encounter Miscellaneous Notes Telephone Encounter - 09/20/2002 11:59 PM CDT >> KYLE VASQUEZ [facility] Sep 21, 2002 10:40 AM Called pharmacy and zohreh jonas. Called and left a message that rx has been called into her pharmacy. >> ELLEN MAGANA FriSep 20, 2002 3:15 PM done. thanks >> SHORTY ZHONG FriSep 20, 2002 1:02 PM Pt called back stating that she would also like a nasal spray like Flonase. If approved please fax to pharmacy and please send back to me, thanks. >> KYLE VASQUEZ FriSep 20, 2002 11:37 AM Called and left a message for pt. to call clinic with pharmacy information. >> ELLEN MAGANA Mon Sep 20, 2002 11:11 AM sumi okayed but not fax availabe?. please let her know. thanks >> KYLE VASQUEZ Mon Sep 20, 2002 11:05 AM >> CALL RECEIVED. Contact: # [phone] Pt. called the clinical support line and stated the following information: she was in to see Dr. ANG last week and talked about getting on a allergy medication. However, Dr. Miko JEFFREY forgot to give her something. She is wondering if she could get on Sumi or Zyrtec. To Dr. ANG to advise. documented in this encounter Plan of Treatment Not on filedocumented as of this encounter Visit Diagnoses Not on filedocumented in this encounter Care Teams Director Recreation Center Relationship Specialty Start Date End Date Ellen Magana MD PCP - General 03/12/02 03/05/12 [address] [facility] [address] [id number] documented as of this encounter
--- OUTSIDE RECORDS SUMMARY | 2021-12-14 09:07 | XMS_ITS | Encounter Summary ---
:1970 Author Organization [place] Address [address] [facility] [place] [address] Care Team Providers Name Role Phone Jeanette Christopher MD Primary Care Provider Encounter Details Date Type Department Care Team Description 06/14/2005 Admission H&P Spenser Vila MD (Payroll Accounting Manager) [facility] TS [address] [facility] [address] [place] [address] (Wo rk) Social History Tobacco Use Types Packs/Day Years Used Date Smoking Tobacco: Never Alcohol Use Standard Drinks/Week Comments No 0 (1 standard drink = 0.6 oz pure alcoho l) Sex Assigned at Date Recorded Not on file documented as of this encounter Progress Notes Spenser Vila - 06/14/2005 6:05 AM CDT PRELIMINARY PREOP DIAGNOSIS: Intrauterine at term gestation, spontaneous onset of labor. PROCEDURE: Outlet vacuum delivery of the baby's head, repair of second-degree midline episiotomy. DETAILS: The patient is a 35-year-old female, 2, para 1 with a due date of June 17, who hashad uncomplicated course. She came into labor and delivery in spontaneous labor this evening and made good progress in the first stage requiring epidural anesthesia. She then pushed for about 45 minutes and the baby was only down to a zero station. She was able to then get the baby to a +1-+2station, the vacuum was placed on the baby's head and about 9-10 pulls were required to delivery this baby as there was a rotation from the right occiput posterior to right occiput anterior position, but the head came through and the infant's nares and nasopharynx were vigorously suctioned with bulb and DeLee suctioned due to some light meconium. There was a loose nuchal cord that was reduced and theshoulders came easily. The cord was clamped and cut and had 3 vessels and the baby was given over tothe nurse practitioner who was present at the delivery. scores were 5 at 1 minute and9 at 5 minutes. The secundines delivered intact. Exploration of the cervix and the vaginal vault were negative for lacerations. Routine repair of the second-degree midline episiotomy under local anesthesia with 3-0 Vicryl suture. Rectal exam was negative. Blood loss was about 300 cc. Mother and infantremained in the birthing room in good condition. SPENSER VILA MD MT: PAMELA#[id number] Name: NINO MCINTOSH Account: [id number] : 1970 Admitted: [id number] Document: [id number] documented in this encounter Plan of Treatment Not on filedocumented as of this encounter Visit Diagnoses Not on filedocumented in this encounter Care Teams Test Grader Relationship Specialty Start Date End Date Jeanette Christopher MD PCP - General 03/12/02 03/05/12 [address] [facility] [address] [id number] documented as of this encounter
--- OUTSIDE RECORDS SUMMARY | 2021-12-14 09:07 | XMS_ITS | Encounter Summary ---
:1970 Author Organization [facility] Address [address] [place] [address] Care Team Providers Name Role Phone Saleem Jimenez Primary Care Provider Unknown, Md Unavailable Unavailable Reason for Visit Reason Comments Eye Exam Other (Routine) - Closed Specialty Diagnoses / Procedures Referred By Contact Refer red To Contact Diagnoses Multiple sclerosis (HCC) Beto Esparza MD Procedures [facility] [address] [place], [place] [address] Referral ID Status Reason Start Date Expiration Date Visits Requ ested Visits Authorized [id number] Closed 08/07/2021 1 1 Encounter Details Date Type Department Care Team Description 10/31/2021 Ophth Exam [facility] 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 Multiple sclerosis (HCC) Center ([facility]) [phone] [address] [facility] [address] (Work) [place], [place] [phone] [address] (Fax) [phone] Social History Tobacco Use Types Packs/Day Years [...] have Coronavirus/COVID-19? documented as of this encounter Progress Notes Ruiz Murcia - 10/31/2021 8:00 AM CDT Progress Note Eye Test OCT optic nerve - raw data found in [facility] and Contrast Sensitivity - see flowsheet documented in this encounter Plan of Treatment Not on filedocumented as of this encounter Visit Diagnoses Diagnosis Partial optic atrophy of both eyes - [facility] Multiple sclerosis (HCC) Multiple sclerosis documented in this encounter Care Teams Airplane Navigator Relationship Specialty Start Date End Date Saleem Jimenez PA PCP - General 12/15/[address] [place] [address] Pamela, PCP - Primary Care Clinic 12/15/20 NO ADDRESS/PHONE/FAX AFFILIATED documented as of this encounter
--- OUTSIDE RECORDS SUMMARY | 2021-12-14 09:07 | XMS_ITS | Encounter Summary ---
:1970 Author Organization [place] Address [address] [facility] [place] [address] Care Team Providers Name Role Phone Jeanette Christopher MD Primary Care Provider Encounter Details Date Type Department Care Team Description 06/14/2005 Historic Results INTERFACED REPORT Itzel Peterson MD EAP COUNSELOR SPECIALIS TS [address] [facility] [address] [place] [address] (Wo rk) Social History [...] Name Priority Date/Time Associated Diagnosis Comme nts RHOGAM ORDER Routine 06/14/2005 9:41 AM Results f or this CDT procedure are i n the results section . documented in this encounter Results Rhogam Order (06/14/2005 9:41 AM CDT) [facility] Method Time Signature Rhogam Order Order MISYS received Comment: See Rhogam Study/Suitability Specimen Anatomical Collection Method Collection Time Receive d Time (Source) Location / / Volume Laterality 06/14/2005 9:41 AM 6 6:06 CDT AM CDT Tre Peterson MD LAB - BLOOD BANK PRODUCT ORD ER Performing Organization Address City/State/ZIP Code Phon e Number MISYS documented in this encounter Visit Diagnoses Not on filedocumented in this encounter Care Teams Switch House Operator Relationship Specialty Start Date End Date Jeanette Christopher MD PCP - General 03/12/02 03/05/12 [address] [id number] documented as of this encounter
--- OUTSIDE RECORDS SUMMARY | 2021-12-14 09:07 | XMS_ITS | Encounter Summary ---
:1970 Author Organization [place] Address [address] [place] [address] Care Team Providers Name Role Phone Jeanette Christopher MD Primary Care Provider Encounter Details Date Type Department Care Team Description 06/15/2005 Historic Results INTERFACED REPORT Itzel Peterson MD MANAGER IMAGE SPECIALIS TS [address] [facility] [address] [facility] [address] [place] [address] (Wo rk) Social History [...] Name Priority Date/Time Associated Diagnosis Comme nts RH IMMUNE GLOBULIN Routine 06/15/2005 5:35 AM Res ults for this SCREEN CDT procedure are i n the results section. documented in this encounter Results Rh Immune Globulin Study (06/15/2005 5:35 AM CDT) [facility] Method Time Signature ABO O MISYS RH(D) Neg MISYS Blood Neg MISYS Screen Blood Bank Antibody MISYS Comment screening not done due to Rhogam Comment: Suitable for Rh Immunoglobulin 1 vial Rh Immune Globulin required Specimen Anatomical Collection Method Collection Time Receive d Time (Source) Location / / Volume Laterality 06/15/2005 5:35 AM 6 9:46 CDT AM CDT Tre Peterson MD LAB - BLOOD BANK TEST ORDER Performing Organization Address City/State/ZIP Code Phon e Number MISYS documented in this encounter Visit Diagnoses Not on filedocumented in this encounter Care Teams Supervisor Cell Operation Relationship Specialty Start Date End Date Jeanette Christopher MD PCP - General 03/12/02 03/05/12 [address] [facility] [address] [id number] documented as of this encounter
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
--- OUTSIDE RECORDS SUMMARY | 2021-12-14 09:07 | XMS_ITS | Encounter Summary ---
:1970 Author Organization [facility] Address [address] [place] [address] Care Team Providers Name Role Phone Jeanette Christopher MD Primary Care Provider Reason for Visit Reason Comments Sinus Problem Encounter Details Date Type Department Care Team Description 09/17/2002 Office Visit [facility] Jeanette Christopher, ACUTE SEROUS OTITIS MEDIA (Primary Dx); Physicians DIZZINESS AND GIDDINESS; [address] [place], [place] [address] [facility] [address] [place] [address] [phone] Social History Tobacco Use Types Packs/Day Years Used Date Smoking Tobacco: Never Alcohol Use Standard Drinks/Week Comments No 0 (1 standard drink = 0.6 oz pure alcoho l) Sex Assigned at Date Recorded Not on file documented as of this encounter Last Filed Vital Signs Vital Sign Reading Time Taken Comments Blood Pressure 112/62 09/17/2002 11:00 AM CDT Pulse 70 09/17/2002 11:00 AM CDT Temperature 36.3 ??C (97.4 ??F) 09/17/2002 11:00 AM CDT Respiratory Rate - - Oxygen Saturation - - Inhaled Oxygen Concentration - - Weight 70.3 kg (155 lb) 09/17/2002 11:00 AM CDT Height 168.9 cm (5' 6.5) 09/17/2002 11:00 AM CDT Body Mass Index 24.64 09/17/2002 11:00 AM CDT documented in this encounter Progress Notes 09/17/2002 11:00 AM CDT SUBJECTIVE: Agata Sheridan is an 32 year old female who presents for possible ear infection. Sympt oms include ear pain on left and rhinorrhea. Onset 1 week, gradually worsening since that time. Ear history: frequent episodes of otitis. Meds as of 09/17/2002: CELEXA 40 MG OR TABS 1 TABLET DAILY Rev iew of patient's allergies indicates: No Known Drug * Tobacco Use: Never Alcohol Use: No OBJECTIVE: BP 112/62 Temp 97.4 Temp Src: Oral Ht 5' 6.5 (1.689m) Wt 155 lbs ( 70.308 kg) LMP 08/13/2002 General appearance: healthy, alert and no distress Ears: R TM - bubbles a nd erythematous, L TM - impacted, after cerumen removal: , bulging and erythematous Nose: normal, pur ulent rhinorrhea and mucosal edema Oropharynx: normal Neck: normal, supple and no adenopathy Lungs: n ormal and clear to auscultation Heart: regular rate and rhythm and no murmurs, clicks, or gallops SESSMENT: Acute left otitis media dizziness-likely secondary to infection as it got worse with ear wa shing PLAN: 1) amox 2) Fluids, vaporizer, acetaminophen. 3) Recheck as needed for persistence, wo rsening, appearance of new symptoms. documented in this encounter Nursing Notes 09/17/2002 11:00 AM CDT >> KAYDEN DIA 09/17/2002 11:16 am Patient is here because she is having some ear and sinus pressure. She also has a few questions about her period. Questioned patient about current smoking habits. Pt. has never smoked. documented in this encounter Plan of Treatment Not on filedocumented as of this encounter Procedures Procedure Name Priority Date/Time Associated Diagnosis Comme nts HCL URINE Routine 09/17/2002 11:54 AM Dizziness And Results for this TEST CDT Giddiness procedure are i n the results section. HC REMOVE IMPACTED Routine 09/17/2002 11:47 AM Impacted Cerume n CERUMEN CDT documented in this encounter Results URINE TEST (09/17/2002 11:54 AM CDT) P athologist Signature Test NEG [facility] Specific 1.001 - [facility] [place] Urine 1.035 Specimen (Source) Anatomical Collection Method Collection Time Re ceived Time Location / / Volume Laterality 09/17/2002 11:54 AM CDT Jeanette Christopher MD LABORATORY Performing Organization Address City/State/ZIP Code Phon e Number [facility] documented in this encounter Visit Diagnoses Diagnosis Acute serous otitis media - Primary Dizziness and giddiness Impacted cerumen documented in this encounter Care Teams Criminal Research Specialist Relationship Specialty Start Date End Date Jeanette Christopher MD PCP - General 03/12/02 03/05/12 [address] [id number] documented as of this encounter
--- OUTSIDE RECORDS SUMMARY | 2021-12-14 09:08 | XMS_ITS | Encounter Summary ---
:1970 Author Organization [facility] Address [address] [place] [address] Care Team Providers Name Role Phone Saleem Jimenez Primary Care Provider Unknown, Unavailable Unavailable Encounter Details Date Type Department Care Team Description 08/07/2021 Travel Social History Tobacco Use Types Packs/Day Years Used Date Smoking Tobacco: Never Smokeless Tobacco: Never Alcohol Use Standard Drinks/Week Comments Not Currently 0 (1 standard drink = 0.6 oz pure alcoho l) Sex Assigned at Date Recorded Not on file COVID-19 Exposure Response Date Recorded In the last 10 days, have you been in contact with No / Unsu re 08/07/2021 9:07 AM CDT someone who was confirmed or suspected to have Coronavirus/COVID-19? documented as of this encounter Plan of Treatment Not on filedocumented as of this encounter Visit Diagnoses Not on filedocumented in this encounter Care Teams Pharmacist In Charge Relationship Specialty Start Date End Date Saleem Jimenez PA PCP - General 12/15/[address] [place] [address] Pamela, PCP - [facility] 12/15/20 NO ADDRESS/PHONE/FAX AFFILIATED documented as of this encounter
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
[2021-12-15 22:49] LABS: Follicle Stimulating Hormone 25.6 IU/L
== END 2021-12-14 09:03 | disposition home or self-care (01) ==
LOC: NFLDREF 09:02
PROVIDERS: Visit Provider Physician Assistant
DX: N91.2 Amenorrhea, unspecified (principal)
CPT/HCPCS: 83001

== ENCOUNTER 2021-12-19 08:04 | Outpatient (CLI) | payer OTHER, SELFPAY ==
--- OUTSIDE RECORDS SUMMARY | 2021-12-19 08:08 | XMS_ITS | Encounter Summary ---
:1970 Author Organization [facility] Address [address] [facility] [place] [address] Care Team Providers Name Role Phone Jeanette Christopher MD Primary Care Provider Reason for Visit Reason Comments Sinus Problem Encounter Details Date Type Department Care Team Description 09/17/[address] [facility] Jeanette Christopher, ACUTE SEROUS OTITIS MEDIA (Primary Dx); Physicians [facility]ZZINESS AND GIDDINESS; [address] [place], [place] [address]UMEN [address] [facility] [address] [place] [phone] Social History Tobacco Use Types Packs/Day Years [...] [facility] Specific 1.001 - [facility] [place] Urine 1.035 Specimen (Source) Anatomical Collection Method Collection Time Re ceived Time Location / / Volume Laterality 09/17/2002 11:54 AM CDT Jeanette Christopher MD LABORATORY Performing Organization Address City/State/ZIP Code Phon e Number [facility] documented in this encounter Visit Diagnoses Diagnosis Acute serous otitis media - Primary Dizziness and giddiness Impacted cerumen documented in this encounter Care Teams Lemon Grower Relationship Specialty Start Date End Date Jeanette Christopher MD PCP - General 03/12/02 03/05/12 [address] [place] [address] [id number] documented as of this encounter
--- OUTSIDE RECORDS SUMMARY | 2021-12-19 08:08 | XMS_ITS | Encounter Summary ---
:1970 Author Organization [place] Address [address] [facility] [place] [address] Care Team Providers Name Role Phone Jeanette Christopher MD Primary Care Provider Encounter Details Date Type Department Care Team Description 06/14/2005 Admission H&P Spenser Vila MD (Assistant Center Director) FACILITY MAINTENANCE WORKER SPECIALIS TS [address] [facility] [address] [place] [address] (Wo rk) Social History [...] MD MT: PAMELA#[id number] Name: NINO MCINTOSH Account: [id number] : 1970 Admitted: [id number] Document: [id number] documented in this encounter Plan of Treatment Not on filedocumented as of this encounter Visit Diagnoses Not on filedocumented in this encounter Care Teams Weight Training Instructor Relationship Specialty Start Date End Date Jeanette Christopher MD PCP - General 03/12/02 03/05/12 1411 RUTH Lopez [facility] [address] [address] documented as of this encounter
--- OUTSIDE RECORDS SUMMARY | 2021-12-19 08:08 | XMS_ITS | Encounter Summary ---
:1970 Author Organization [place] Address [address] [place] [address] Care Team Providers Name Role Phone Ellen Magana MD Primary Care Provider Reason for Visit Reason Comments Medication Request Encounter Details Date Type Department Care Team Description 09/20/2002 Telephone [facility] Ellen Magana MD Medication Request Physicians [address] [address] [address] [place] [address] [place] [address] [phone] Social History Tobacco Use Types Packs/Day Years Used Date Smoking Tobacco: Never Alcohol Use Standard Drinks/Week Comments No 0 (1 standard drink = 0.6 oz pure alcoho l) Sex Assigned at Date Recorded Not on file documented as of this encounter Miscellaneous Notes Telephone Encounter - 09/20/2002 11:59 PM CDT >> KYLE VASQUEZ [facility] Sep 21, 2002 10:40 AM Called pharmacy [...] 11:05 AM >> CALL RECEIVED. Contact: # [phone] Pt. called the clinical support line and [...] on filedocumented in this encounter Care Teams Power Engineer Relationship Specialty Start Date End Date Ellen Magana MD PCP - General 03/12/02 03/05/12 9919 R[address] Lopez [facility] [address] [address] documented as of this encounter
--- OUTSIDE RECORDS SUMMARY | 2021-12-19 08:08 | XMS_ITS | Encounter Summary ---
:1970 Author Organization [place] Address [address] [facility] [place] [address] Care Team Providers Name Role Phone Jeanette Christopher MD Primary Care Provider Encounter Details Date Type Department Care Team Description 06/14/2005 Historic Results INTERFACED REPORT Itzel Peterson MD ROTARY ADJUSTER SPECIALIS TS [address] [facility] [address] [place] [address] (Wo rk) Social History [...] Results Rhogam Order (06/14/2005 9:41 AM CDT) [facility] Method Time Signature Rhogam Order Order MISYS [...] on filedocumented in this encounter Care Teams Mining Support Worker Relationship Specialty Start Date End Date Jeanette Christopher MD PCP - General 03/12/02 03/05/12 [address] [address] documented as of this encounter
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
--- OUTSIDE RECORDS SUMMARY | 2021-12-19 08:08 | XMS_ITS | Encounter Summary ---
:1970 Author Organization [place] Address [address] [facility] [place] [address] Care Team Providers Name Role Phone Jeanette Christopher MD Primary Care Provider Encounter Details Date Type Department Care Team Description 06/15/2005 Historic Results INTERFACED REPORT Itzel Peterson MD MECHANICAL PROJECT MANAGER SPECIALIS TS [address] [facility] [address] [facility] [address] [place] [address] (Wo rk) Social History [...] Immune Globulin Study (06/15/2005 5:35 AM CDT) [facility] Method Time Signature ABO O MISYS RH(D) [...] on filedocumented in this encounter Care Teams Construction Contractor Relationship Specialty Start Date End Date Jeanette Christopher MD PCP - General 03/12/02 03/05/12 1980 [address] Lopez [facility] [address] [id number] documented as of this encounter
--- OUTSIDE RECORDS SUMMARY | 2021-12-19 08:08 | XMS_ITS | Encounter Summary ---
:1970 Author Organization [place] Address [address] [place] [address] Care Team Providers Name Role Phone Clinic, [facility] Primary Care Provide r Bernardo Nguyen MD Unavailable [phone] Reason for Visit Reason Onset Date Comments *-*INCOMING RECORDS*-* 09/26/2016 Encounter Details Date Type Department Care Team Description 09/26/2016 PRE VISIT [facility] Bernardo Nguyen *-*INCOMI RECORDS*-* Multiple Sclerosis MD [facility] [address] [address] Social History Tobacco Use Types Packs/Day Years Used Date Smoking Tobacco: Never Alcohol Use Standard Drinks/Week Comments No 0 (1 standard drink = 0.6 oz pure alcoho l) Sex Assigned at Date Recorded Not on file documented as of this encounter Miscellaneous Notes Telephone Encounter - Dominga Taveras CMA - 09/30/2016 2:35 PM CDT Received imaging from [facility], sent to film room. MR [...] Previous care at / records requested from: [facility]- faxed cover sheet. documented in this encounter Plan of Treatment Not on filedocumented as of this encounter Visit Diagnoses Not on filedocumented in this encounter Care Teams Evaporator Operator Relationship Specialty Start Date End Date Clinic, [facility] PCP - General 07/01/[address] [place] [address] Bernardo Nguyen MD MD Neurology 07/25/[address] [place] [address] documented as of this encounter
--- OUTSIDE RECORDS SUMMARY | 2021-12-19 08:08 | XMS_ITS | Encounter Summary ---
:1970 Author Organization [place] Address [address] [facility] [place] [address] Care Team Providers Name Role Phone Jeanette Christopher MD Primary Care Provider Reason for Visit Reason Comments Dizziness Encounter Details Date Type Department Care Team Description 10/25/2002 Office Visit [facility] INTHITIS NOS Physicians MD [place] (Primary Dx) [address] [place] [address] Social History Tobacco Use Types Packs/Day [...] Primary documented in this encounter Care Teams Financial Services Director Relationship Specialty Start Date End Date Jeanette Christopher MD PCP - General 03/12/02 03/05/12 [address] [address] documented as of this encounter
--- OUTSIDE RECORDS SUMMARY | 2021-12-19 08:08 | XMS_ITS | Encounter Summary ---
:1970 Author Organization [facility] Address [address] [place] [address] Care Team Providers Name Role Phone Saleem [...] on filedocumented in this encounter Care Teams Drycleaner Relationship Specialty Start Date End Date Saleem Jimenez PA PCP - General 12/15/[address] [place] [address] Pamela, PCP - Primary Care Clinic 12/15/20 NO ADDRESS/PHONE/FAX AFFILIATED documented as of this encounter
--- OUTSIDE RECORDS SUMMARY | 2021-12-19 08:08 | XMS_ITS | Encounter Summary ---
:1970 Author Organization [facility] Address [address] [place] [address] Care Team Providers Name Role Phone Saleem Jimenez Primary Care Provider Unknown, Md Unavailable Unavailable Reason for Visit Reason Comments Eye Exam Other (Routine) - Closed Specialty Diagnoses / Procedures Referred By Contact Refer red To Contact Diagnoses Multiple sclerosis (HCC) Beto Esparza MD Procedures LIZZIE NOLEN EYE TEST [address] [place], [place] [address] Referral ID Status Reason Start Date Expiration Date Visits Requ ested Visits Authorized [id number] Closed 08/07/2021 1 1 Encounter Details Date Type Department Care Team Description 10/31/2021 Ophth Exam [facility] of Randy Murcia 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 Multiple sclerosis (HCC) Multiple sclerosis documented in this encounter Care Teams Flux Core Welder Relationship Specialty Start Date End Date Saleem Jimenez PA PCP - General 12/15/[address] [place] [address] Pamela, PCP - Primary Care Clinic 12/15/20 NO ADDRESS/PHONE/FAX AFFILIATED documented as of this encounter
--- OUTSIDE RECORDS SUMMARY | 2021-12-19 08:08 | XMS_ITS | Encounter Summary ---
:1970 Author Organization [place] Address [address] [place] [address] Care Team Providers Name Role Phone Clinic, [facility] Primary Care Provide r Reason for Visit Reason Comments Headache Encounter Details Date Type Department Care Team Description 07/01/2016 Emergency [facility] Arpita Paulino [facility] MD John headache, unspecified Dept [facility] chronicity pattern, [address] unspecified headache [place], [place] [address] [place] [phone] [facility] [phone] [place], [place] [address] (Wo rk) Social History Tobacco Use Types [...] contain Tylenol?? (acetaminophen), including Vicodin??, Tylenol #3??, [place]??, Lortab??, and Percocet??. You should not take [...] normal gait, negative romberg, no dysdiadochokinesia, normal hudmwo-eubg-opklte testing Emergency Department Course Interventions: 1900- Reglan [...] Disposition: Discharged to home. Desiree Flaherty 07/01/2016 [facility] I, Desiree Flaherty, am serving as a scribe at 6:39 PM on 07/01/2016 to document services personally performed by Arpita Paulino MD based on my observations and the provider's statements to me. Arpita Paulino MD 07/02/16 0894 documented in this encounter Plan of Treatment [...] Irritant. documented in this encounter Care Teams Punch Press Operator Helper Relationship Specialty Start Date End Date [facility], [facility] PCP - General 07/01/[address] [place] [address] documented as of this encounter
--- OUTSIDE RECORDS SUMMARY | 2021-12-19 08:08 | XMS_ITS | Encounter Summary ---
:1970 Author Organization [place] Address [address] [place] [address] Care Team Providers Name Role Phone Jeanette Christopher MD Primary Care Provider Encounter Details Date Type Department Care Team Description 06/16/2005 Historic Results INTERFACED REPORT Itzel Peterson MD CREDIT UNION TELLER SPECIALIS TS [address] [place] [address] (Wo rk) Social History [...] Component Value Ref Test Analysis Performed At [facility] Range Method Time Signature Specimen Throat MISYS Description Micro Report FINAL [id number] MISYS Status Rapid Strep A NEGATIVE: No MISYS Screen Group A streptococcal antigen detected by immunoassay, await Comment: culture report. Specimen Anatomical Collection Method Collection Time Receive d Time (Source) Location / / Volume Laterality 06/16/2005 10:00 06/16/2005 9:53 AM CDT AM CDT Tre Peterson MD LAB - MICRO GENERAL ORDERABL ES Performing Organization Address City/[facility] Phon e Number MISYS Beta strep group A culture (06/16/2005 10:00 AM CDT) Component Value Ref Test Analysis Performed At [facility] Range Method Time Signature Specimen Throat MISYS Description Culture Micro No beta MISYS hemolytic Streptococcus Group A isolated Micro Report FINAL [id number] MISYS Status Specimen Anatomical Collection Method Collection Time Receive d Time (Source) Location / / Volume Laterality 06/16/2005 10:00 06/16/2005 AM CDT 12:46 PM CDT Tre Peterson MD LAB - MICRO GENERAL ORDERABL ES Performing Organization Address City/[facility] Phon e Number MISYS documented in this encounter Visit Diagnoses Not on filedocumented in this encounter Care Teams Bird Trapper Relationship Specialty Start Date End Date Jeanette Christopher MD PCP - General 03/12/02 03/05/12 [address] [address] documented as of this encounter
--- OUTSIDE RECORDS SUMMARY | 2021-12-19 08:08 | XMS_ITS | Encounter Summary ---
:[address] [facility] Address [address] [place] [address] Care Team Providers Name Role Phone Saleem Jimenez Primary Care Provider Unknown, Md Unavailable Unavailable Reason for Referral Other (Routine) - Authorized Specialty Diagnoses / Procedures Referred By Contact Refer red To Contact Diagnoses Multiple sclerosis (HCC) Abnormal MRI Mild cognitive impairment, so stated Vitamin D deficiency Optic neuropathy Beto Esparza MD Procedures LIZZIE NOLEN MULTIPLE SCLEROSIS [address] [place], [place] [address] Referral ID Status Reason Start Date Expiration Date Visits V isits Requested Authorized [id number] Authorized 11/14/2021 1 1 Reason for Visit [...] MD Procedures LIZZIE NOLEN MULTIPLE SCLEROSIS [address] [place], [place] [address] Referral ID Status Reason Start Date Expiration Date Visits Requ ested Visits Authorized [id number] Open 09/06/2021 1 1 Encounter Details Date Type Department Care Team Description 10/31/2021 Office Visit [facility] of Beto Esparza Multiple sclerosis (HCC) (Primary Dx); Neurology - Rut Mckeon MD Abnormal MRI; Center ([facility]) [address] [place] Mild cognitive impairment, s o stated; [address] Vitamin D deficiency; Road [place], [place] Optic neuropathy; [place] [address] Encounter for drug therapy; [address] Advice given [...] am serving as a trained medical technologist chemistry to document services personally performed byBeto Esparza [...] PM CDT Performed at: ??01 - [facility] [address] [place], [place] ??[address] [place]: Jaime Carr MD, Phone: ?? [phone] Performed at: ??02 - [facility] [address] ??[id number] [place]: Reid Moon MD, Phone: ??[phone] Beto Esparza MD [facility] ORDERABLES Performing Organization Address City/State/ZIP Code Phon e Number [facility] 2 [facility] 1 T&B LYMPHOCYTE DIFFERENTIAL ([facility]) (10/31/2021 10:12 AM CDT) P athologist Signature Absolute 144 12 - 645 [facility] 1 CD19+Lymphocytes /uL ([facility]) Absoute CD 3 1,032 622 - [facility] 1 ([facility]) 2,402 /uL Absolute CD 4 629 359 - [facility] 1 [place] ([facility]) 1,519 /uL Absolute CD 8 399 [...] 2:08 PM CDT Performed at: ??01 - [facility] ??[id number] [place]: Jaime Carr MD, Phone: ?? [phone] Performed at: ??02 - [facility] ??[id number] [place]: Reid Moon MD, Phone: ??[phone] Beto Esparza MD [facility] ORDERABLES Performing Organization [...] PM CDT Performed at: ??01 - [facility] [address] ??[id number] [place]: Jaime Carr MD, Phone: ?? [phone] Beto Esparza MD [facility] ORDERABLES Performing Organization Address City/[facility]/ZIP Code Phon e Number [facility] 1 [...] PM CDT Performed at: ??01 - [facility] [address] ??[id number] [place]: Jaime Carr MD, Phone: ?? [phone] Beto Esparza MD [facility] ORDERABLES Performing Organization Address City/[facility] Phon e Number [facility] 1 HCV [...] atitis C Virus (HCV) RNA, Diagnosis, ELOY ([id number] ) and Hepatitis C Virus (HCV) Antibody with r eflex to Quantitative Real-time PCR ([id number]). Specimen Anatomical Collection Method Collection Time Receive d Time (Source) Location / / Volume Laterality Blood 10/31/2021 10:12 10/30/2021 AM CDT 11:00 PM CDT Narrative [facility] 1 - 11/06/2021 2:08 PM CDT Performed at: ??01 - [facility] ??[id number] [address] [place]: Jaime Carr MD, Phone: ?? [phone] Beto Esparza MD [facility] ORDERABLES Performing Organization Address City/[facility] Code Phon e Number [facility] 1 HBSAG SCREEN ([facility]) (10/31/2021 10:12 AM CDT) athologist Signature Hepatitis B Negative Negative [facility] 1 Surface Antigen Screen ([facility]) Specimen Anatomical Collection Method Collection Time Receive d Time (Source) Location / / Volume Laterality Blood 10/31/2021 10:12 10/30/2021 AM CDT 11:00 PM CDT Narrative [facility] 1 - 11/06/2021 2:08 PM CDT Performed at: ??01 - [facility] [address] ??[id number] [place]: Jaime Carr MD, Phone: ?? [phone] Beto Esparza MD [facility] ORDERABLES Performing Organization [...] PM CDT Performed at: ??01 - [facility] [address] ??[id number] 2126 [place]: Jaime Carr MD, Phone: ?? [phone] Beto Esparza MD [facility] ORDERABLES Performing Organization [...] 2:08 PM CDT Performed at: ??01 - [facility] ??[id number]378 [place]: Jaime Carr MD, Phone: ?? [phone] Beto Esparza MD [facility] ORDERABLES Performing Organization [...] PM CDT Performed at: ??01 - [facility] [address] ??[id number] 7115 [place]: Jaime Carr MD, Phone: ?? [phone] Beto Esparza MD [facility] ORDERABLES Performing Organization Address City/[facility] Code Phon e Number [facility] 1 (ABNORMAL) VITAMIN D, 25-HYDROXY ([facility]) (10/31/2021 10:12 AM CDT) P athologist Signature Vitamin D,25 29.2 (L) 30.0 - [facility] 1 Hydroxy 100.0 ([facility]) ng/mL Comment: Vitamin D deficiency has been defined by the [place] of Medicine and an Endocrine Society practi ce guideline as a level of serum 25-OH vitamin D less than 20 ng/mL (1,2). The Endocrine Society went on to further define vitamin D insufficiency as a level between 21 and 29 ng/mL (2). 1. IOM ([place] of [employer]). 2010. Di etary reference ?? [...] PM CDT Performed at: ??01 - [facility] [address] ??[id number] [place]: Jaime Carr MD, Phone: ?? [phone] Beto Esparza MD [facility] ORDERABLES Performing Organization Address City/[facility] Code Phon e Number [facility] 1 CALCIUM ([facility]) (10/31/2021 10:12 AM CDT) P athologist Signature Calcium 8.9 8.7 - 10.2 [facility] 1 ([facility]) mg/dL Specimen Anatomical Collection Method Collection Time Receive d Time (Source) Location / / Volume Laterality Blood 10/31/2021 10:12 10/30/2021 AM CDT 11:00 PM CDT Narrative [facility] 1 - 11/06/2021 2:08 PM CDT Performed at: ??01 - [facility] [address] ??[id number]115 [place]: Jaime Carr MD, Phone: ?? [phone] Beto Esparza MD [facility] ORDERABLES Performing Organization [...] ion documented in this encounter Care Teams Marketing Strategy Analyst Relationship Specialty Start Date End Date Saleem Jimenez PA PCP - General 12/15/[address] [place] [address] Pamela, PCP - Primary Care Clinic 12/15/20 NO ADDRESS/PHONE/FAX AFFILIATED documented as of this encounter
--- OUTSIDE RECORDS SUMMARY | 2021-12-19 08:08 | XMS_ITS | Encounter Summary ---
:[address] [facility] Address [address] [place] [address] Care Team Providers Name Role Phone Saleem [...] on filedocumented in this encounter Care Teams Inside Sales Consultant Relationship Specialty Start Date End Date Saleem Jimenez PA PCP - General 12/15/[address] [place] [address] Pamela, PCP - Primary Care Clinic 12/15/20 NO ADDRESS/PHONE/FAX AFFILIATED documented as of this encounter
--- OUTSIDE RECORDS SUMMARY | 2021-12-19 08:08 | XMS_ITS | Encounter Summary ---
:1970 Author Organization [place] Address [address] 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 Encounter Details Date Type Department Care Team Description 02/18/2002 Office Visit [facility] Jeanette Christopher, GYN[employer] Physicians EXAMINATION (Primary [address]) [address] [place] [phone] Social History Tobacco Use Types Packs/Day Years Used Date Smoking Tobacco: Never Alcohol Use Standard Drinks/Week Comments No 0 (1 standard drink = 0.6 oz pure alcoho l) Sex Assigned at Date Recorded Not on file documented as of this encounter Last Filed Vital Signs Vital Sign Reading Time Taken Comments Blood Pressure 98/60 02/18/2002 9:30 AM TRACK ANNOUNCER Pulse 72 02/18/2002 9:30 AM TRACK ANNOUNCER Temperature 36.7 ??C (98 ??F) 02/18/2002 9:30 AM TRACK ANNOUNCER Respiratory Rate - - Oxygen Saturation - - Inhaled Oxygen Concentration - - Weight 70.8 kg (156 lb) 02/18/2002 9:30 AM TRACK ANNOUNCER Height 170.2 cm (5' 7) 02/18/2002 9:30 AM TRACK ANNOUNCER Body Mass Index 24.43 02/18/2002 9:30 AM TRACK ANNOUNCER documented in this encounter Progress Notes 02/18/2002 9:30 AM TRACK ANNOUNCER SUBJECTIVE: Agata Sheridan is an 32 year old woman who 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 Concerns nellie kennedy are: 1) wants [...] 10:47 Gynecologic Results fo r this AM TRACK ANNOUNCER Examination procedure are i n the results section. HCL LIPID PANEL Routine 02/19/2002 1:09 AM Gynecologic Result s for this TRACK ANNOUNCER Examination procedure are i n the results section. ZZCL AFF HEMOGLOBIN Routine 02/18/2002 10:54 Gynecologic Resu lts for this AM TRACK ANNOUNCER Examination procedure are i n the results section. HC VENOUS COLLECTION Routine 02/18/2002 10:37 Gynecologic AM TRACK ANNOUNCER Examination HCL URINALYSIS Routine 02/18/2002 9:56 AM Gynecologic Results for this NONAUTO W/O SCOPE TRACK ANNOUNCER Examination procedure are in [facility] the results section. C PAP HANDLING FEE Routine 02/18/2002 9:51 AM Gynecologic TRACK ANNOUNCER Examination documented in this encounter Results PAP SMEAR (02/19/2002 10:47 AM TRACK ANNOUNCER) athologist Signature Unlabelled DNR [facility] Source DNR [facility] LMP [id number] [facility] Clinical [facility] History Comment: Therapy DNR [facility] Last Pap Diagnosis WITHIN NORMAL LIMITS [facility] PAP Date [facility]NR [facility] Prev Bx Dx DNR [facility] Prev Bx Date [facility]NR [facility]l [facility] Statement of Adequacy [facility] [place] Comment: SATISFACTORY FOR INTERPRETATION ENDOCERVICAL COMPONENT (COLUMNAR AND/OR METAPLASTIC) IS PRESENT General Categorization DNR [facility] [place] Descriptive Diagnosis [facility] [place] Comment: WITHIN NORMAL LIMITS Recommendations [facility] Comment: PAP SMEARS ARE SUBJECT TO BOTH FALSE NE GATIVE AND FALSE POSITIVE RESULTS EVIDENCED BY DATA PUBLISHED IN THE MEDICAL LITERATURE. ??YOUR PATIE NT'S RESULT SHOULD BE INTERPRETED IN THIS CONTEXT, TOGETHER WITH THE PATIENT'S HISTORY AND CLINICAL FIND INGS. TESTING LOCATION ?? THIS TEST WAS PERFORMED AT [facility] ?? [address] [place] [address] ?? [place], [place] ?? [address] ?? PHONE NUMBERS FOR CYTOLOGY INQUIRIES , INCLUDING ?? SLIDE REQUESTS: ?EX T [id number] Specimen (Source) Anatomical Location Collection Method / Collectio n Time Received Time / Laterality Volume 02/18/2002 Jeanette Christopher MD LABORATORY Performing Organization Address City/[facility] Phon e Number [facility] A.M.[facility]. LIPID PANEL (02/19/2002 1:09 AM TRACK ANNOUNCER) [facility] gist Method Time Signature Comments [facility] Triglycerides 56 <150 MG/DL [facility] Cholesterol 122 <200 MG/DL [facility] Cholesterol 2 PERCENTILE [facility] Percentile HDL Cholesterol 54 >39 MG/DL [facility] LDL Cholesterol 57 <130 MG/DL [facility] Calculated Cholesterol/HDL 2.3 <4.4 [facility] Ratio Specimen (Source) Anatomical Location Collection Method / Collectio n Time Received Time / Laterality Volume 02/18/2002 Jeanette Christopher MD LABORATORY Performing Organization Address City/[facility]/ZIP Code Phon e Number [facility] HEMOGLOBIN (02/18/2002 10:54 AM TRACK ANNOUNCER) athologist Signature Hemoglobin 14.2 12 - 16 [facility] INTER[facility] GM/DL Specimen (Source) Anatomical Collection Method Collection Time Re ceived Time Location / / Volume Laterality 02/18/2002 10:54 AM TRACK ANNOUNCER Jeanette Christopher MD LABORATORY Performing Organization Address City/State/ZIP Code Phon e Number [facility] INTERNAL URINALYSIS NONAUTO W/O SCOPE (02/18/2002 9:56 AM TRACK ANNOUNCER) P athologist Signature Glucose Urine neg neg - neg [facility] mg/dL Albumin Urine neg neg - neg [facility] mg/dL Specimen (Source) Anatomical Collection Method Collection Time Re ceived Time Location / / Volume Laterality 02/18/2002 9:56 AM TRACK ANNOUNCER Jeanette Christopher MD LABORATORY Performing Organization Address City/State/ZIP Code Phon e Number [facility] INTERNAL documented in this encounter Visit Diagnoses Diagnosis Gynecological examination - Primary documented in this encounter
--- OUTSIDE RECORDS SUMMARY | 2021-12-19 08:08 | XMS_ITS | Clinical Summary ---
:1970 Author Organization [place] Address [address] [place] [address] Care Team Providers Name Role Phone Clinic, [facility] Primary Care Provide r Bernardo Nguyen MD Unavailable [phone] Allergies Active Allergy Reactions Severity Noted [...] ss Type Group BCBS [place] OF [place] [id number] 2016-Marshal [phone] [address] [address] Indemnity t 0 [place] [address] (Home) W [phone] [place], [place] (Work) [phone] Agata Sheridan Personal/Family Self 1970 [address] (Home) [place] [address] Care Teams Metal Washing Machine Operator Relationship Specialty Start Date End Date Clinic, [facility] Medical PCP - General 07/01/[address] [place] [address] Bernardo Nguyen MD MD Neurology 07/25/[address] [place] [address]
--- OUTSIDE RECORDS SUMMARY | 2021-12-19 08:08 | XMS_ITS | Clinical Summary ---
:1970 Author Organization [facility] Address [address] [place] [address] Care Team Providers Name Role Phone Saleem Jimenez Primary Care Provider Unknown, Md Unavailable Unavailable Allergies Active Allergy Reactions Severity Noted Date Comments Cortisone Hives, Itching 09/05/2005 Nitroimidazoles 04/16/2010 Other reacti on(s): Yeast Infection Used Flagyl ora l, caused yeast infection in [facility] Medications Medication Sig Dispensed Refills [...] so stated 08/07/2021 Overview: Dx Update from [facility] Last Assessment & Plan: Assessment: Cognitive concerns [...] labs showed a negative Lyme's disease, negative DANYLE and vitamin D level of 22. She [...] Management: MS Date of Diagnosis: 2016 at [facility] in [facility] Disease history - 1998: First symptoms [...] PM CDT Performed at: ??02 - [facility] [employer] [address] [place] [address] ??[id number] Hand Wrapper Operator: Jaime Carr MD, Phone: ?? [phone] Beto Esparza MD [facility] ORDERABLES Performing Organization Address City/State/ZIP Code Phon e Number [facility] 2 QUANTIFERON-TB GOLD PLUS ([facility]) (10/31/2021 10:19 AM CDT) [facility] gist Method Time Signature QFT Incubate [...] 5:07 PM CDT Performed at: ??01 - [facility] ??[phone] Hand Wrapper Operator: Pablo Argueta PhD, Phone: ??[phone] Performed at: ??02 - [facility] ??[id number] Hand Wrapper Operator: Jaime Carr MD, Phone: ?? [phone] Beto Esparza MD [facility] ORDERABLES Performing Organization Address City/[facility]/ZIP Code Phon e Number [facility] 2 [facility] 1 T&B LYMPHOCYTE DIFFERENTIAL ([facility]) (10/31/2021 10:12 AM CDT) P athologist Signature Absolute 144 12 - 645 [facility] 1 CD19+Lymphocytes /uL ([facility]) Absoute CD 3 1,032 622 - [facility] 1 ([facility]) 2,402 /uL Absolute CD 4 629 359 - [facility] 1 [place]ascilla ([facility]) 1,519 /uL Absolute CD 8 399 [...] PM CDT Performed at: ??01 - [facility] [address] ??[id number] Hand Wrapper Operator: Jaime Carr MD, Phone: ?? [phone] Performed at: ??02 - [facility] [address] ??[phone] Hand Wrapper Operator: Reid Moon MD, Phone: ??[phone] Beto Esparza MD [facility] ORDERABLES Performing Organization Address City/[facility] Phon e Number [facility] 1 [facility] 2 HIV P24 ANTIGEN/ANTIBODY W/REFLEX TO CONFIRM ([facility]) (10/31/2021 10:12 AM CDT) [facility] Method Time Signature HIV Non Reactive Non [...] PM CDT Performed at: ??01 - [facility] [address] ??[id number] Hand Wrapper Operator: Jaime Carr MD, Phone: ?? [phone] Beto Esparza MD [facility] ORDERABLES Performing Organization Address [facility] Phon e Number [facility] 1 VARICELLA [...] 2:08 PM CDT Performed at: ??01 - [facility] [address] [place], [place] ??[address] Hand Wrapper Operator: Jaime Carr MD, Phone: ?? [phone] Performed at: ??02 - [address] ??[id number] Hand Wrapper Operator: Reid Moon MD, Phone: ??[phone] Beto Esparza MD [facility] ORDERABLES Performing Organization [...] atitis C Virus (HCV) RNA, Diagnosis, ELOY (252672 ) and Hepatitis C Virus (HCV) Antibody with r eflex to Quantitative Real-time PCR (899654). Specimen Anatomical Collection Method Collection Time Receive d Time (Source) Location / / Volume Laterality Blood 10/31/2021 10:12 10/30/2021 AM CDT 11:00 PM CDT Narrative [facility] 1 - 11/06/2021 2:08 PM CDT Performed at: ??01 - [facility] [address] ??[id number] Hand Wrapper Operator: Jaime Carr MD, Phone: ?? [phone] Beto Esparza MD [facility] ORDERABLES Performing Organization Address City/State/ZIP Code Phon e Number [facility] 1 (ABNORMAL) VITAMIN D, 25-HYDROXY ([facility]) (10/31/2021 10:12 AM CDT) P athologist Signature Vitamin D,25 29.2 (L) 30.0 - [facility] 1 Hydroxy 100.0 ([facility]) ng/mL Comment: Vitamin D deficiency has been defined by the [place] of Medicine and an Endocrine Society practi ce guideline as a level of serum 25-OH vitamin D less than 20 ng/mL (1,2). The Endocrine Society went on to further define vitamin D insufficiency as a level between 21 and 29 ng/mL (2). 1. IOM ([place] of Medicine). 2010. Di etary reference ?? intakes for calcium and D. [place]: The ?? [employer] Press. 2. Hannah MF, Mason JONES, Veronica [...] PM CDT Performed at: ??01 - [facility] [address] ??[id number] Hand Wrapper Operator: Jaime Carr MD, Phone: ?? [phone] Beto Esparza MD [facility] ORDERABLES Performing Organization [...] PM CDT Performed at: ??01 - [facility] [address] ??[id number] Hand Wrapper Operator: Jaime Carr MD, Phone: ?? [phone] Beto Esparza MD [facility] ORDERABLES Performing Organization [...] PM CDT Performed at: ??01 - [facility] [address] ??[id number] Hand Wrapper Operator: Jaime Carr MD, Phone: ?? [phone] Beto Esparza MD [facility] ORDERABLES Performing Organization Address City/[facility] Code Phon e Number [facility] 1 HBSAG SCREEN ([facility]) (10/31/2021 10:12 AM CDT) P athologist Signature Hepatitis B Negative Negative [facility] 1 Surface Antigen Screen ([facility]) Specimen Anatomical Collection Method Collection Time Receive d Time (Source) Location / / Volume Laterality Blood 10/31/2021 10:12 10/30/2021 AM CDT 11:00 PM CDT Narrative [facility] 1 - 11/06/2021 2:08 PM CDT Performed at: ??01 - [address] ??[phone] Hand Wrapper Operator: Jaime Carr MD, Phone: ?? [phone] Beto Esparza MD [facility] ORDERABLES Performing Organization [...] PM CDT Performed at: ??01 - [facility] [address] ??[id number] Hand Wrapper Operator: Jaime Carr MD, Phone: ?? [phone] Beto Esparza MD [facility] ORDERABLES Performing Organization Address City/[facility] Phon e Number [facility] 1 AST (SGOT) ([facility]) (10/31/2021 10:12 AM CDT) P athologist Signature AST (SGOT) 15 0 - 40 IU/L [facility] 1 ([facility]) Specimen Anatomical Collection Method Collection Time Receive d Time (Source) Location / / Volume Laterality Blood 10/31/2021 10:12 10/30/2021 AM CDT 11:00 PM CDT Narrative [facility] 1 - 11/06/2021 2:08 PM CDT Performed at: ??01 - [facility] [address] ??[id number] Hand Wrapper Operator: Jaime Carr MD, Phone: ?? [phone] Beto Esparza MD [facility] ORDERABLES Performing Organization [...] PM CDT Performed at: ??01 - [facility] [address], [place], [place] ??[address] Hand Wrapper Operator: Jaime Carr MD, Phone: ?? [phone] Beto Esparza MD [facility] ORDERABLES Performing Organization [...] attachment that is no t available. Beto Epsarza MD MRI ORDERABLE from Last 3 Months Insurance Payer Benefit Plan / Subscriber ID Effective Phone Address T e [facility] OPEN [id number] 2021-[facility] [phone] PARTNERS ACCESS/CHOICE nt [phone] [place] [address] Care Teams Nut Sorter Operator Relationship Specialty Start Date End Date Saleem Jimenez PA PCP - General 12/15/[address] [place] [address] Pamela, PCP - Primary Care Clinic 12/15/20 NO ADDRESS/PHONE/FAX AFFILIATED
--- OUTSIDE RECORDS SUMMARY | 2021-12-19 08:08 | XMS_ITS | Encounter Summary ---
:1970 Author Organization [place] Address [address] [place] [address] Care Team Providers Name Role Phone Clinic, [facility] Primary Care Provide r Bernardo Nguyen MD Unavailable [phone] Reason for Visit Reason Comments Pain Encounter Details Date Type Department Care Team Description 10/17/2017 Office Visit [facility] Gil Barajass n euroma of right foot (Primary Dx); Clinic [place] NURIA [place] Metatarsalgia, right foot; [address] [address] [place] Capsulitis of metatarsophalangeal (MTP) joint of right foot [address] [place] [address] [phone] Social History Tobacco Use Types Packs/Day Years [...] 9:00 AM CDT Thank you for choosing [facility]! DR. BARAJAS'S CLINIC LOCATIONS: FRIDAY - ANAFriday - [place] [address] [facility] [address] [place] [address] [place] [address] [place] [address] [phone] FRIDAY AM - [place] FRIDAY PM - [place] [address] [place] [address] [place], [place] [phone] Friday - [place] SET UP SURGERY: [phone] [address] APPOINTMENTS: [phone] [place] [address] BILLING QUESTIONS: [phone] FAX NUMBER: [phone] Follow Up: 3 weeks Body Mass Index [...] Diagnosis/Tests (Exam) for a Edward's Neuroma Your construction mgr (foot doctor) will ask many questions about [...] high heel shoes OVER THE COUNTER INSERTS Rohati SystemssoCardiOx SpeWealink.com Power Step Walk-Fit Arch Cradles Most of these can be found at your local [employer], RentHome[employer]ru, or online: 1. https://www.AWID/en-us/ 2. Https://EB Holdings/ 3. 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 Smoking status: [...] Foot & Ankle Surgeon 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
--- OUTSIDE RECORDS SUMMARY | 2021-12-19 08:08 | XMS_ITS | Encounter Summary ---
:1970 Author Organization [facility] Address [address] [place] [address] Care Team Providers Name Role Phone Saleem Jimenez Primary Care Provider Unknown, Md Unavailable Unavailable Reason for Referral Other (Routine) - Closed Specialty Diagnoses / Procedures Referred By Contact Refer red To Contact Diagnoses Multiple sclerosis (HCC) Beto Esparza MD Procedures [facility] E[facility] TEST [address] [place], [place] [address] Referral ID Status Reason Start Date Expiration Date Visits Requ ested Visits Authorized [id number] Closed 08/07/2021 1 1 (Routine) - Closed Specialty Diagnoses / Procedures Referred By Contact Refer red To Contact Diagnoses Multiple sclerosis (HCC) Abnormal MRI Beto Esparza MD Procedures MRI SPINE THORACIC [facility] CON [address] [place], [place] [address] Referral ID Status Reason Start Date Expiration Date Visits Requ ested Visits Authorized [id number] Closed 08/07/2021 1 1 (Routine) - Closed Specialty Diagnoses / Procedures Referred By Contact Refer red To Contact Diagnoses Multiple sclerosis (HCC) Abnormal MRI Beto Esparza MD Procedures MRI SPINE CERVICAL [facility] CON [address] [place], [place] [address] Referral ID Status Reason Start Date Expiration Date Visits Requ ested Visits Authorized [id number] Closed 08/07/2021 1 1 (Routine) - Closed Specialty Diagnoses / Procedures Referred By Contact Refer red To Contact Diagnoses Multiple sclerosis (HCC) Abnormal MRI Beto Esparza MD Procedures MRI BRAIN [facility] CON [address] [place], [place] [address] Referral ID Status Reason Start Date Expiration Date Visits Requ ested Visits Authorized [id number] Closed 08/07/2021 1 1 ther (Routine) - Open Specialty Diagnoses / Procedures Referred By Contact Refer red To Contact Diagnoses Multiple sclerosis (HCC) Abnormal MRI Mild cognitive impairment, so stated Beto Esparza MD Procedures [facility] MULTIPLE SCLEROSIS [address] [place], [place] [address] Referral ID Status Reason Start Date Expiration Date Visits Requ ested Visits Authorized [id number] Open 09/06/2021 1 1 Consultation (Routine) - Closed Specialty Diagnoses / Procedures Referred By Contact Refer red To Contact Neuropsychology Diagnoses Multiple sclerosis (HCC) Mild cognitive impairment, so stated Beto Esparza Md, Not Listed [place] no address [address] [place] [address] Referral ID Status Reason Start Date Expiration Date Visits V isits Requested Authorized [id number] Closed Specialty 08/07/2021 1 1 Services Required Question Answer Reason for Referral Other Cognitive Issues - Spe cify in comments Individual to Contact Patient Comments To Gal Rivers, PhD for neuropsychometr ic testing. [address] [place] [phone] Reason for Visit Reason Comments Consultation Patient trying to establish care with an MS specialists. Previously dx with MS 2017, symptomatic before that. Currently not on a DMT.Started at [facility], MS found as an incidental finding. Currently not strug gling with day to day neurological symptoms Fall risk assessment Fall assessment: Patient has had no falls in calendar year Encounter Details Date Type Department Care Team Description 08/07/2021 Office Visit [facility] Beto Esparza Multiple sclerosis (HCC) (Primary Dx); Neurology - Rut Mckeon MD Abnormal MRI; Center ([address] Mild cognitive impairment, s o stated; [address] [place] [address] [address] [place], [place] [address] Social History Tobacco Use Types Packs/Day [...] to administer or schedule monoclonal antibody treatment. [place] Dept of Health: COVID-19 Medication Options (https://www.health.[facility].ia./diseases/coronavirus/meds.html) Questionnaire for Monoclonal Antibody Treatment (https://z.[facility]/mnrap) COVID-19 Vaccine/Booster Our office does not have access to vaccines or boosters. We do not administer the vaccinations. Local pharmacies are following CDC guidelines and are not accepting orders from Dr. Esparza for an extradose that are more frequent the current CDC recommendations. Find COVID-19 Vaccine Locations in [place] (https://[place].gov/covid19/vaccine/find-vaccine/locations/index.jsp) COVID-19 Testing There are no barrier locations available throughout the [facility], the service is free and doesn't require an appointment. Locations include: [place], [facility], [facility], [place], [place], [place], Counts Include [facility], [facility], [place] and [place] Find COVID-19 Testing Locations in [place] (https://[place].gov/covid19/get-tested/testing-locations/index.jsp) General Recommendations Lifestyle and Diet We recommend [...] how they can help you, or contact [place] Quit Plan at or www.quitplan.[employer]ics Counseling on Fall prevention: If you have [...] Currently not on a DMT. Started at [facility], MS found as an incidental finding. Currently not struggling with day to day neurological symptoms ??? Fall risk assessment Fall assessment: Patient has had no falls in calendar year The patient presents today for MS Consult. HPI MS Date of Diagnosis: 2016 at [facility] Disease history - 1998: First symptoms at [...] Faye, am serving as a trained medical coding instructor to document services personally performed byBeto Esparza [...] - NOV/ - [facility] - Neuropsychometric testing documented in this encounter Plan of Treatment Scheduled Orders Name Type Priority Associated Diagnoses Order S chedule MRI SPINE THORACIC Imaging Routine Multiple scle rosis (HCC) Expected: 08/07/2021, W/[facility] CON Abnormal MRI Expires: 2022 Scheduled Referrals Name Type Priority Associated Diagnoses Order S chedule REFERRAL NEUROPSYCHOLOGY Follow Up Routine Multiple scleros is Ordered: 08/07/2021 ([facility]) Mild cognitive impairment, so stated documented as [...] deficiency documented in this encounter Care Teams Psych Nurse Relationship Specialty Start Date End Date Saleem Jimenez PA PCP - General 12/15/[address] [address] Pamela, PCP - Primary Care Clinic 12/15/20 NO ADDRESS/PHONE/FAX AFFILIATED documented as of this encounter
--- OUTSIDE RECORDS SUMMARY | 2021-12-19 08:08 | XMS_ITS | Encounter Summary ---
:1970 Author Organization [place] Address [address] [place] [address] Care Team Providers Name Role Phone Clinic, [facility] Primary Care Provide r Bernardo Nguyen MD Unavailable [phone] Reason for Referral Consultation (Routine) - Closed Specialty Diagnoses / Procedures Referred By Contact Refer red To Contact Medical Oncology Diagnoses Family history of carrier of genetic disease Generic External Data Department Referral ID Status Reason Start Date Expiration Date Visits Requ ested Visits Authorized [id number] Closed 12/28/2019 12/27/2020 1 1 Scheduling Instructions Referred for Genetic Counseling for fami ly history of cancer by Katherine Briceño PA-C. DING INSULATION SUPERVISOR Encounter Details Date Type Department Care Team [...] thyroid documented in this encounter Care Teams Brim Presser Relationship Specialty Start Date End Date Clinic, [facility] PCP - General 07/01/[address] [place] [address] Bernardo Nguyen MD MD Neurology 07/25/[address] [place] [phone] documented as of this encounter
--- NOTE | 2021-12-19 08:15 | CRLHL7_ITS ---
For Patients: As a result of the Century Cures Act, medical imaging exams and procedure reports are released immediately into your electronic medical record. You may view this report before your referring provider. If you have questions, please contact your health care provider. INDICATION: Left martina pelvic pain. Prominent left ovary on physical examination. TECHNIQUE: Transabdominal and transvaginal pelvic ultrasound. Grayscale and color spectral Doppler waveform analysis utilized. COMPARISON: April 25, 2017. FINDINGS: The uterus measures 10.0 x 6.4 x 7.2 cm. The endometrial stripe is thickened, heterogeneous, and vascular measuring up to 11 mm. Within the mid left uterine body there is a small intramural fibroid measuring 7 x 6 x 7 mm. The right ovary measures 3.2 x 0.8 x 2.2 cm. Blood flow is documented in the right ovary both arterial and venous. The left ovary measures 3.2 x 1.9 x 1.6 cm. Blood flow is documented in the left ovary both arterial and venous. Within the left ovary there is a small echogenic lesion measuring 1.4 x 1.0 x 1.2 cm. It is uncertain if this reflects a small dermoid. Consider either a CT of the pelvis versus an MRI. This is not convincingly a hemorrhagic follicle. No free pelvic fluid. IMPRESSION: 1. Thickened heterogeneous endometrial stripe measuring up to 11 mm. It appears to be somewhat hypervascular. Consider hysterosonography or hysteroscopy versus followup ultrasound in 6-8 weeks or 1-2 menstrual cycles. 2. Tiny intramural fibroid to the left of midline. 3. Echogenic focus within one edge of the left ovary measuring 1.4 x 1.0 x 1.3 cm. It is uncertain if this is a dermoid or not. Consider either short interval follow-up ultrasound, CT, or even pelvic MRI. Dictated by Akil Barcenas MD @ 12/19/2021 10:24:25 AM (Electronically Signed)
== END 2021-12-19 08:05 | disposition home or self-care (01) ==
PROVIDERS: PCP Physician Assistant Medical; Visit Provider Physician Assistant
DX: R10.2 Pelvic and perineal pain (principal); R93.89 Abnormal findings on diagnostic imaging of other specified body structures; D25.1 Intramural leiomyoma of uterus; N83.202 Unspecified ovarian cyst, left side
CPT/HCPCS: 76830; 76856; 93976

== ENCOUNTER 2022-01-18 06:18 | Outpatient (CLI) | payer OTHER, SELFPAY ==
--- OUTSIDE RECORDS SUMMARY | 2022-01-18 06:21 | XMS_ITS | Encounter Summary ---
:1970 Author Organization [place] Address [address] [facility] [place] [address] Care Team Providers Name Role Phone Jeanette Christopher MD Primary Care Provider Encounter Details Date Type Department Care Team Description 06/14/2005 Historic Results INTERFACED REPORT Itzel Peterson MD ACCOUNTS RECEIVABLE COORDINATOR SPECIALIS TS [address] [facility] [address] [place] [address] (Wo rk) Social History [...] Results Rhogam Order (06/14/2005 9:41 AM CDT) [facility] Method Time Signature Rhogam Order Order [...] on filedocumented in this encounter Care Teams Cable Engineer Relationship Specialty Start Date End Date Jeanette Christopher MD PCP - General 03/12/02 03/05/12 [address] [address] documented as of this encounter
--- OUTSIDE RECORDS SUMMARY | 2022-01-18 06:21 | XMS_ITS | Encounter Summary ---
:1970 Author Organization [place] Address [address] [facility] [place] [address] Care Team Providers Name Role Phone Unavailable Primary Care Provider Unavailable Reason for Visit Reason Comments Talent Partner Exam Encounter Details Date Type Department Care Team Description 02/18/2002 Office Visit [facility] Jeanette Christopher, GYNECO LOGIC Physicians EXAMINATION (Primary [address]) [address] [place] [phone] Social History Tobacco Use Types Packs/Day Years Used Date Smoking Tobacco: Never Alcohol Use Standard Drinks/Week Comments No 0 (1 standard drink = 0.6 oz pure alcoho l) Sex Assigned at Date Recorded Not on file documented as of this encounter Last Filed Vital Signs Vital Sign Reading Time Taken Comments Blood Pressure 98/60 02/18/2002 9:30 AM SPORTS MANAGEMENT INTERN Pulse 72 02/18/2002 9:30 AM SPORTS MANAGEMENT INTERN Temperature 36.7 ??C (98 ??F) 02/18/2002 9:30 AM SPORTS MANAGEMENT INTERN Respiratory Rate - - Oxygen Saturation - - Inhaled Oxygen Concentration - - Weight 70.8 kg (156 lb) 02/18/2002 9:30 AM SPORTS MANAGEMENT INTERN Height 170.2 cm (5' 7) 02/18/2002 9:30 AM SPORTS MANAGEMENT INTERN Body Mass Index 24.43 02/18/2002 9:30 AM SPORTS MANAGEMENT INTERN documented in this encounter Progress Notes 02/18/2002 9:30 AM SPORTS MANAGEMENT INTERN SUBJECTIVE: Agata Sheridan is an 32 year old woman who presents for annual bit grinder exam. Concerns nellie kennedy are: 1) wants [...] 10:47 Gynecologic Results fo r this AM SPORTS MANAGEMENT INTERN Examination procedure are i n the results section. HCL LIPID PANEL Routine 02/19/2002 1:09 AM Gynecologic Result s for this SPORTS MANAGEMENT INTERN Examination procedure are i n the results section. ZZCL AFF HEMOGLOBIN Routine 02/18/2002 10:54 Gynecologic Resu lts for this AM SPORTS MANAGEMENT INTERN Examination procedure are i n the results section. HC VENOUS COLLECTION Routine 02/18/2002 10:37 Gynecologic AM SPORTS MANAGEMENT INTERN Examination HCL URINALYSIS Routine 02/18/2002 9:56 AM Gynecologic Results for this NONAUTO W/O SCOPE SPORTS MANAGEMENT INTERN Examination procedure are in [facility] the results section. C PAP HANDLING FEE Routine 02/18/2002 9:51 AM Gynecologic SPORTS MANAGEMENT INTERN Examination documented in this encounter Results PAP SMEAR (02/19/2002 10:47 AM SPORTS MANAGEMENT INTERN) athologist Signature Unlabelled DNR [facility] Source DNR [facility] LMP [id number] [facility] Clinical [facility] History Comment: Therapy DNR [facility] Last Pap Diagnosis WITHIN NORMAL LIMITS [facility] PAP Date DNR [facility] Prev Bx Dx DNR [facility] Prev Bx Date [facility]NR [facility] Addl Hx Info [facility] Statement of Adequacy [facility] [place] Comment: SATISFACTORY FOR INTERPRETATION ENDOCERVICAL COMPONENT (COLUMNAR AND/OR METAPLASTIC) IS PRESENT General Categorization DNR [facility] Descriptive Diagnosis [facility] Comment: WITHIN NORMAL LIMITS Recommendations [facility] . [facility] Comment: PAP SMEARS ARE SUBJECT TO BOTH FALSE NE GATIVE AND FALSE POSITIVE RESULTS EVIDENCED BY DATA PUBLISHED IN THE MEDICAL LITERATURE. ??YOUR PATIE NT'S RESULT SHOULD BE INTERPRETED IN THIS CONTEXT, TOGETHER WITH THE PATIENT'S HISTORY AND CLINICAL FIND INGS. TESTING LOCATION ?? THIS TEST WAS PERFORMED AT [facility] ?? [address] [place] [address] ?? [place], [place] ?? [address] ?? PHONE NUMBERS FOR CYTOLOGY INQUIRIES , INCLUDING ?? SLIDE REQUESTS: ?EX T [id number] Specimen (Source) Anatomical Location Collection Method / Collectio n Time Received Time / Laterality Volume 02/18/2002 Jeanette Christopher MD LABORATORY Performing Organization Address City/[facility] Phon e Number [facility]. LIPID PANEL (02/19/2002 1:09 AM SPORTS MANAGEMENT INTERN) [facility] gist Method Time Signature Comments [facility] Triglycerides 56 <150 MG/DL [facility] [...] Jeanette Christopher MD LABORATORY Performing Organization Address City/[facility]/ZIP Code Phon e Number [facility] HEMOGLOBIN (02/18/2002 10:54 AM SPORTS MANAGEMENT INTERN) athologist Signature Hemoglobin 14.2 12 - 16 [facility] GM/DL Specimen (Source) Anatomical Collection Method Collection Time Re ceived Time Location / / Volume Laterality 02/18/2002 10:54 AM SPORTS MANAGEMENT INTERN Jeanette Christopher MD LABORATORY Performing Organization Address City/State/ZIP Code Phon e Number [facility] INTERNAL URINALYSIS NONAUTO W/O SCOPE (02/18/2002 9:56 AM SPORTS MANAGEMENT INTERN) P athologist Signature Glucose Urine neg neg - neg [facility] mg/dL Albumin Urine neg neg - neg [facility] mg/dL Specimen (Source) Anatomical Collection Method Collection Time Re ceived Time Location / / Volume Laterality 02/18/2002 9:56 AM SPORTS MANAGEMENT INTERN Jeanette Christopher MD LABORATORY Performing Organization Address City/State/ZIP Code Phon e Number [facility] documented in this encounter Visit Diagnoses Diagnosis Gynecological examination - Primary documented in this encounter
--- OUTSIDE RECORDS SUMMARY | 2022-01-18 06:21 | XMS_ITS | Encounter Summary ---
:1970 Author Organization [place] Address [address] [facility] [place] [address] Care Team Providers Name Role Phone Jeanette Christopher MD Primary Care Provider Reason for Visit Reason Comments Sinus Problem Encounter Details Date Type Department Care Team Description 09/17/[address] [facility] Jeanette Christopher, ACUTE SEROUS OTITIS MEDIA (Primary Dx); Physicians DIZZINESS AND GIDDINESS; [address] [facility] [address] [place], [place] [address] [facility] [address] [place] [phone] Social History Tobacco Use Types Packs/Day Years [...] [facility] INTER[facility] Specific 1.001 - [facility] INTERNAL [place] Urine 1.035 Specimen (Source) Anatomical Collection Method Collection Time Re ceived Time Location / / Volume Laterality 09/17/2002 11:54 AM CDT Jeanette Christopher MD LABORATORY Performing Organization Address City/State/ZIP Code Phon e Number [facility] documented in this encounter Visit Diagnoses Diagnosis Acute serous otitis media - Primary Dizziness and giddiness Impacted cerumen documented in this encounter Care Teams Compliance Quality Performance Analyst Relationship Specialty Start Date End Date Jeanette Christopher MD PCP - General 03/12/02 03/05/12 [address] [id number] documented as of this encounter
--- OUTSIDE RECORDS SUMMARY | 2022-01-18 06:21 | XMS_ITS | Encounter Summary ---
:1970 Author Organization [facility] Address [address] [place] [address] Care Team Providers Name Role Phone Saleem [...] on filedocumented in this encounter Care Teams Swing Saw Operator Relationship Specialty Start Date End Date Saleem Jimenez PA PCP - General 12/15/[address] [place] [address] Pamela, PCP - Primary Care Clinic 12/15/20 NO ADDRESS/PHONE/FAX AFFILIATED documented as of this encounter
--- OUTSIDE RECORDS SUMMARY | 2022-01-18 06:21 | XMS_ITS | Clinical Summary ---
:1970 Author Organization [facility] Address [address] [place] [address] Care Team Providers Name Role Phone Saleem Jimenez Primary Care Provider Unknown, Md Unavailable Unavailable Allergies Active Allergy Reactions Severity Noted Date Comments Cortisone Hives, Itching 09/05/2005 Nitroimidazoles 04/16/2010 Other reacti on(s): Yeast Infection Used Flagyl ora l, caused yeast infection in [facility] Medications Medication Sig Dispensed Refills Start [...] so stated 08/07/2021 Overview: [place] Update [place] [facility] Last Assessment & Plan: Assessment: Cognitive concerns [...] MS Date of Diagnosis: [address] [facility] in [facility] Disease history - 1998: First symptoms [...] 10/31/2021 Office Visit Multiple Sclerosis Beto Esparza tiple sclerosis (HCC) (Primary Dx); MD Linda [...] procedure are i n the results section. from Last 3 Months Results QFT-TB GOLD [...] PM CDT Performed at: ??02 - [facility] [address] ??[id number] Cooker Sulfate: Jaime Carr MD, Phone: ?? [phone] Beto Esparza MD [facility] ORDERABLES Performing Organization Address City/State/ZIP Code Phon e Number [facility] 2 QUANTIFERON-TB GOLD PLUS ([facility]) (10/31/2021 10:19 AM CDT) [facility] Method Time Signature QFT Incubate Incubation [...] 5:07 PM CDT Performed at: ??01 - [facility] ??[id number] Cooker Sulfate: Pablo Argueta PhD, Phone: ??[phone] Performed at: ??02 - [facility] ??[id number] Cooker Sulfate: Jaime Carr MD, Phone: ?? [phone] Beto Esparza MD [facility] ORDERABLES Performing Organization Address City/State/ZIP Code Phon e Number [facility] 2 [facility] 1 T&B LYMPHOCYTE DIFFERENTIAL ([facility]) (10/31/2021 10:12 AM CDT) athologist Signature Absolute 144 12 - 645 [facility] 1 CD19+Lymphocytes /uL ([facility]) Absoute CD 3 1,032 622 - [facility] 1 ([facility]) 2,402 /uL Absolute CD 4 629 359 - [facility] 1 [place] ([facility]) 1,519 /uL Absolute CD 8 399 [...] PM CDT Performed at: ??01 - [facility] [address] ??[id number] Cooker Sulfate: Jaime Carr MD, Phone: ?? [phone] Performed at: ??02 - [facility] [address] ??[id number] Cooker Sulfate: Reid Moon MD, Phone: ??[phone] Beto Esparza MD [facility] ORDERABLES Performing Organization Address City/[facility] Code Phon e Number [facility] 1 [facility] [...] PM CDT Performed at: ??01 - [facility] [address] ??[id number] Cooker Sulfate: Jaime Carr MD, Phone: ?? [phone] Beto Esparza MD [facility] ORDERABLES Performing Organization Address City/[facility] Phon e Number [facility] 1 [...] PM CDT Performed at: ??01 - [facility] [place] [address] [facility], [place], [place] ??[id number]77 Cooker Sulfate: Jaime Carr MD, Phone: ?? [phone] Performed at: ??02 - [facility] [place] [address] [place], [place] ??[id number] Cooker Sulfate: Reid Moon MD, Phone: ??[phone] Beto Esparza MD [facility] ORDERABLES Performing Organization Address City/State/ZIP Code Phon e Number [facility] 2 [facility] 1 HCV ANTIBODY ([facility]) (10/31/2021 10:12 AM CDT) athologist Signature Hepatitis C <0.1 0.0 - [...] the kole gnosis of acute HCV infection. [facility] Hep atitis C Virus (HCV) RNA, Diagnosis, ELOY ([id number] ) and Hepatitis C Virus (HCV) Antibody with r eflex to Quantitative Real-time PCR ([id number]). Specimen Anatomical Collection Method Collection Time Receive d Time (Source) Location / / Volume Laterality Blood 10/31/2021 10:12 10/30/2021 AM CDT 11:00 PM CDT Narrative [facility] 1 - 11/06/2021 2:08 PM CDT Performed at: ??01 - [facility] [address] ??[id number] Cooker Sulfate: Jaime Carr MD, Phone: ?? [phone] Beto Esparza MD [facility] ORDERABLES Performing Organization Address City/State/ZIP Code Phon e Number [facility] 1 (ABNORMAL) VITAMIN D, 25-HYDROXY ([facility]) (10/31/2021 10:12 AM CDT) P athologist Signature Vitamin D,25 29.2 (L) 30.0 - [facility] 1 Hydroxy 100.0 ([facility]) ng/mL Comment: Vitamin D deficiency has been defined by the [place] of Medicine and an Endocrine Society practi ce guideline as a level of serum 25-OH vitamin D less than 20 ng/mL (1,2). The Endocrine Society went on to further define vitamin D insufficiency as a level between 21 and 29 ng/mL (2). 1. IOM ([place] of Medicine). 2010. Di etary reference ?? intakes for calcium and D. [place]: The ?? National [employer]. 2. Hannah MF, Mason JONES, Veronica [...] 2:08 PM CDT Performed at: ??01 - [facility] [address] [place], [place] ??[id number] Cooker Sulfate: Jaime Carr MD, Phone: ?? [phone] Beto Esparza MD [facility] ORDERABLES Performing Organization [...] PM CDT Performed at: ??01 - [facility] [address] ??[id number] Cooker Sulfate: Jaime Carr MD, Phone: ?? [phone] Beto Esparza MD [facility] ORDERABLES Performing Organization Address City/[facility]/ZIP Code Phon e Number [facility] 1 [...] PM CDT Performed at: ??01 - [facility] [address] ??[id number] Cooker Sulfate: Jaime Carr MD, Phone: ?? [phone] Beto Esparza MD [facility] ORDERABLES Performing Organization Address [facility] Phon e Number [facility] 1 HBSAG SCREEN ([facility]) (10/31/2021 10:12 AM CDT) athologist Signature Hepatitis B Negative Negative [facility] 1 Surface Antigen Screen ([facility]) Specimen Anatomical Collection Method Collection Time Receive d Time (Source) Location / / Volume Laterality Blood 10/31/2021 10:12 10/30/2021 AM CDT 11:00 PM CDT Narrative [facility] 1 - 11/06/2021 2:08 PM CDT Performed at: ??01 - [facility] [address] ??[id number] Cooker Sulfate: Jaime Carr MD, Phone: ?? [phone] Beto Esparza MD [facility] ORDERABLES Performing Organization Address City/[facility] Code Phon e Number [facility] 1 ALT/SGPT ([facility]) (10/31/2021 10:12 AM CDT) P athologist Signature ALT (SGPT) 11 0 - 32 IU/L [facility] 1 ([facility]) Specimen Anatomical Collection Method Collection Time Receive d Time (Source) Location / / Volume Laterality Blood 10/31/2021 10:12 10/30/2021 AM CDT 11:00 PM CDT Narrative [facility] 1 - 11/06/2021 2:08 PM CDT Performed at: ??01 - [facility] [address] ??[id number] Cooker Sulfate: Jaime Carr MD, Phone: ?? [phone] Beto Esparza MD [facility] ORDERABLES Performing Organization Address City/[facility]/ZIP Code Phon e Number [facility] 1 AST (SGOT) ([facility]) (10/31/2021 10:12 AM CDT) P athologist Signature AST (SGOT) 15 0 - 40 IU/L [facility] 1 ([facility]) Specimen Anatomical Collection Method Collection Time Receive d Time (Source) Location / / Volume Laterality Blood 10/31/2021 10:12 10/30/2021 AM CDT 11:00 PM CDT Narrative [facility] 1 - 11/06/2021 2:08 PM CDT Performed at: ??01 - [facility] [address] ??[id number] Cooker Sulfate: Jaime Carr MD, Phone: ?? [phone] Beto Esparza MD [facility] ORDERABLES Performing Organization Address City/[facility] Code Phon e Number [facility] 1 CALCIUM ([facility]) (10/31/2021 10:12 AM CDT) P athologist Signature Calcium 8.9 8.7 - 10.2 [facility] 1 ([facility]) mg/dL Specimen Anatomical Collection Method Collection Time Receive d Time (Source) Location / / Volume Laterality Blood 10/31/2021 10:12 10/30/2021 AM CDT 11:00 PM CDT Narrative [facility] 1 - 11/06/2021 2:08 PM CDT Performed at: ??01 - [facility] [address] ??[id number] Cooker Sulfate: Jaime Carr MD, Phone: ?? [phone] Beto Esparza MD [facility] ORDERABLES Performing Organization Address City/State/ZIP Code Phon e Number [facility] 1 from Last 3 Months Insurance Payer Benefit Plan / Subscriber ID Effective Phone Address T e [facility] CENTERTapInfluence OPEN [id number] 2021-[facility] [[email or web address]] [phone] [employer] ACCESS/CHOICE [phone] [place] [address] Care Teams Camouflage Specialist Relationship Specialty Start Date End Date Saleem Jimenez PA PCP - General 12/15/[address] [place] [address] Pamela, PCP - Primary Care Clinic 12/15/20 NO ADDRESS/PHONE/FAX AFFILIATED
--- OUTSIDE RECORDS SUMMARY | 2022-01-18 06:21 | XMS_ITS | Encounter Summary ---
:1970 Author Organization [facility] Address [address] [place] [address] Care Team Providers Name Role Phone Saleem Jimenez Primary Care Provider Unknown, Md Unavailable Unavailable Reason for Visit Reason Comments Eye Exam Other (Routine) - Closed Specialty Diagnoses / Procedures Referred By Contact Refer red To Contact Diagnoses Multiple sclerosis (HCC) Beto Esparza MD Procedures [facility] E[facility] TEST [address] [place], [place] [address] Referral ID Status Reason Start Date Expiration Date Visits Requ ested Visits Authorized [id number] Closed 08/07/2021 1 1 Encounter Details Date Type Department Care Team Description 10/31/[address] 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); Neurology - [place] [facility] Multiple sclerosis (HCC) Center ([facility]) [phone] [address] [facility] [address] (Work) [place], [place] [phone] [address] (Fax) [phone] Social History Tobacco Use Types Packs/Day Years [...] optic nerve - raw data found in [facility] and Contrast Sensitivity - see flowsheet documented in this encounter Plan of Treatment Not on filedocumented as of this encounter Visit Diagnoses Diagnosis Partial optic atrophy of both eyes - [facility] Multiple sclerosis (HCC) Multiple sclerosis documented in this encounter Care Teams Ct Technologist Relationship Specialty Start Date End Date Saleem Jimenez PA PCP - General 12/15/[address] [place] [address] Pamela, PCP - Primary Care Clinic 12/15/20 NO ADDRESS/PHONE/FAX AFFILIATED documented as of this encounter
--- OUTSIDE RECORDS SUMMARY | 2022-01-18 06:21 | XMS_ITS | Clinical Summary ---
:1970 Author Organization [place] Address [address] [place] [address] Care Team Providers Name Role Phone Clinic, [facility] Primary Care Provide r Bernardo Nguyen MD Unavailable [phone] Allergies Active Allergy Reactions Severity Noted [...] ss Type Group BCBS [place] [id number] 2016-Marshal [phone] [address] [address] Indemnity t 0 [place] [address] (Home) W [phone] [place], [place] (Work) [phone] Agata Sheridan Personal/Family Self 1970 [address] (Home) [place] [address] Care Teams Terminal Carman Relationship Specialty Start Date End Date Clinic, [facility] Medical PCP - General 07/01/[address] [place] [address] Bernardo Nguyen MD MD Neurology 07/25/[address] [place] [address]
--- OUTSIDE RECORDS SUMMARY | 2022-01-18 06:21 | XMS_ITS | Encounter Summary ---
:1970 Author Organization [place] Address [address] [place] [address] Care Team Providers Name Role Phone Jeanette Christopher MD Primary Care Provider Encounter Details Date Type Department Care Team Description 06/16/2005 Historic Results INTERFACED REPORT Itzel Peterson MD JACK PRIZER SPECIALIS TS [address] [place] [address] (Wo rk) Social History [...] Component Value Ref Test Analysis Performed At [facility] Range Method Time Signature Specimen Throat MISYS Description Micro Report FINAL [id number] MISYS Status Rapid Strep A NEGATIVE: No MISYS Screen Group A streptococcal antigen detected by immunoassay, await Comment: culture report. Specimen Anatomical Collection Method Collection Time Receive d Time (Source) Location / / Volume Laterality 06/16/2005 10:00 06/16/2005 9:53 AM CDT AM CDT Tre Peterson MD LAB - MICRO GENERAL ORDERABL ES Performing Organization Address City/[facility] Phon e Number MISYS Beta strep group A culture (06/16/2005 10:00 AM CDT) Component Value Ref Test Analysis Performed At [facility] Range Method Time Signature Specimen Throat MISYS Description Culture Micro No beta MISYS hemolytic Streptococcus Group A isolated Micro Report FINAL [id number] MISYS Status Specimen Anatomical Collection Method Collection Time Receive d Time (Source) Location / / Volume Laterality 06/16/2005 10:00 06/16/2005 AM CDT 12:46 PM CDT Tre Peterson MD LAB - MICRO GENERAL ORDERABL ES Performing Organization Address City/[facility] Phon e Number MISYS documented in this encounter Visit Diagnoses Not on filedocumented in this encounter Care Teams Galley Hand Relationship Specialty Start Date End Date Jeanette Christopher MD PCP - General 03/12/02 03/05/12 [address] [place] [address] [address] documented as of this encounter
--- OUTSIDE RECORDS SUMMARY | 2022-01-18 06:21 | XMS_ITS | Encounter Summary ---
:1970 Author Organization [place] Address [address] [place] [address] Care Team Providers Name Role Phone Clinic, [facility] Primary Care Provide r Bernardo Nguyen MD Unavailable [phone] Reason for Referral Consultation (Routine) - Closed Specialty Diagnoses / Procedures Referred By Contact Refer red To Contact Medical Oncology Diagnoses Family history of carrier of genetic disease Generic External Data Department Referral ID Status Reason Start Date Expiration Date Visits Requ ested Visits Authorized [id number] Closed 12/28/2019 12/27/2020 1 1 Scheduling Instructions Referred for Genetic Counseling for fami ly history of cancer by Katherine Briceño PA-C. N SERVICE AGENT Encounter Details Date Type Department Care Team [...] thyroid documented in this encounter Care Teams Kaiawhina Kura Kaupapa Maori Relationship Specialty Start Date End Date Clinic, [facility] PCP - General 07/01/[address] [place] [address] Bernardo Nguyen MD MD Neurology 07/25/[address] [place] [id number] documented as of this encounter
--- OUTSIDE RECORDS SUMMARY | 2022-01-18 06:21 | XMS_ITS | Encounter Summary ---
:1970 Author Organization [place] Address [address] [place] [address] Care Team Providers Name Role Phone Clinic, [facility] Primary Care Provide r Bernardo Nguyen MD Unavailable [phone] Reason for Visit Reason Onset Date Comments *-*INCOMING RECORDS*-* 09/26/2016 Encounter Details Date Type Department Care Team Description 09/26/2016 PRE VISIT [facility] Bernardo Nguyen *-*INCOMI RECORDS*-* Multiple Sclerosis MD [facility] [address] [phone] Social History Tobacco Use Types Packs/Day Years Used Date Smoking Tobacco: Never Alcohol Use Standard Drinks/Week Comments No 0 (1 standard drink = 0.6 oz pure alcoho l) Sex Assigned at Date Recorded Not on file documented as of this encounter Miscellaneous Notes Telephone Encounter - Dominga Taveras CMA - 09/30/2016 2:35 PM CDT Received imaging from [facility], sent to film room. MR [...] Previous care at / records requested from: [facility]- faxed cover sheet. documented in this encounter Plan of Treatment Not on filedocumented as of this encounter Visit Diagnoses Not on filedocumented in this encounter Care Teams Riprap Placer Relationship Specialty Start Date End Date Clinic, [facility] PCP - General 07/01/[address] [place] [address] Bernardo Nguyen MD MD Neurology 07/25/[address] [place] [address] documented as of this encounter
--- OUTSIDE RECORDS SUMMARY | 2022-01-18 06:21 | XMS_ITS | Encounter Summary ---
:1970 Author Organization [place] Address [address] [place] [place] [address] Care Team Providers Name Role Phone Ellen Magana MD Primary Care Provider Reason for Visit Reason Comments Medication Request Encounter Details Date Type Department Care Team Description 09/20/2002 Telephone [facility] Ellen Magana MD Medication Request Physicians [address] [address] [address] [place] [address] [place] [address] [phone] Social History Tobacco Use Types Packs/Day Years Used Date Smoking Tobacco: Never Alcohol Use Standard Drinks/Week Comments No 0 (1 standard drink = 0.6 oz pure alcoho l) Sex Assigned at Date Recorded Not on file documented as of this encounter Miscellaneous Notes Telephone Encounter - 09/20/2002 11:59 PM CDT >> [facility] Sep 21, 2002 10:40 AM Called pharmacy [...] 11:05 AM >> CALL RECEIVED. Contact: # [phone] Pt. called the clinical support line and [...] on filedocumented in this encounter Care Teams Student Advisor Relationship Specialty Start Date End Date Ellen Magana MD PCP - General 03/12/02 03/05/12 [address] [facility] [address] [address] documented as of this encounter
--- OUTSIDE RECORDS SUMMARY | 2022-01-18 06:21 | XMS_ITS | Encounter Summary ---
:1970 Author Organization [place] Address [address] [place] [address] Care Team Providers Name Role Phone Jeanette Christopher MD Primary Care Provider Encounter Details Date Type Department Care Team Description 06/14/2005 Admission H&P Spenser Vila MD (Captain'S Assistant) FORENSIC INVESTIGATOR SPECIALIS TS [address] [facility] [address] [place] [address] (Wo rk) Social History [...] MD MT: PAMELA#[id number] Name: NINO MCINTOSH Account: [id number] : 1970 Admitted: [id number] Document: [id number] documented in this encounter Plan of Treatment Not on filedocumented as of this encounter Visit Diagnoses Not on filedocumented in this encounter Care Teams Code And Test Clerk Relationship Specialty Start Date End Date Jeanette Christopher MD PCP - General 03/12/02 03/05/12 [address] [facility] [address] [address] documented as of this encounter
--- OUTSIDE RECORDS SUMMARY | 2022-01-18 06:21 | XMS_ITS | Encounter Summary ---
:1970 Author Organization [place] Address [address] [facility] [place] [address] Care Team Providers Name Role Phone Clinic, [facility] Primary Care Provide r Reason for Visit Reason Comments Headache Encounter Details Date Type Department Care Team Description 07/01/2016 Emergency [facility] Arpita Paulino [facility] Emergency MD John headache, unspecified Dept [facility] chronicity pattern, [address] unspecified headache [place], [place] [address] [place] [address] [facility] [phone] [place], [place] [phone] (Wo rk) Social History Tobacco Use Types [...] contain Tylenol?? (acetaminophen), including Vicodin??, Tylenol #3??, [place]??, Lortab??, and Percocet??. You should not take [...] normal gait, negative romberg, no dysdiadochokinesia, normal ldpjfx-eyui-ymhbmi testing Emergency Department Course Interventions: 1900- Reglan [...] Disposition: Discharged to home. Desiree Flaherty 07/01/2016 [facility] I, Desiree Flaherty, am serving as a scribe at 6:39 PM on 07/01/2016 to document services personally performed by Arpita Paulino MD based on my observations and the provider's statements to me. Arpita Paulino MD 07/02/16 0868 documented in this encounter Plan of Treatment [...] Irritant. documented in this encounter Care Teams Business Programmer Relationship Specialty Start Date End Date [facility], [facility] PCP - General 07/01/[address] [place] [address] documented as of this encounter
--- OUTSIDE RECORDS SUMMARY | 2022-01-18 06:22 | XMS_ITS | Encounter Summary ---
:1970 Author Organization [facility] Address [address] [place] [address] Care Team Providers Name Role Phone Saleem Jimenez Primary Care Provider Unknown, Md Unavailable Unavailable Reason for Referral Other (Routine) - Closed Specialty Diagnoses / Procedures Referred By Contact Refer red To Contact Diagnoses Multiple sclerosis (HCC) Beto Esparza MD Procedures [facility] [address] [place], [place] [address] Referral ID Status Reason Start Date Expiration Date Visits Requ ested Visits Authorized [id number] Closed 08/07/2021 1 1 (Routine) - Closed Specialty Diagnoses / Procedures Referred By Contact Refer red To Contact Diagnoses Multiple sclerosis (HCC) Abnormal MRI Beto Esparza MD Procedures MRI SPINE THORACIC [facility] CON [address] [place], [place] [address] Referral ID Status Reason Start Date Expiration Date Visits Requ ested Visits Authorized [id number] Closed 08/07/2021 1 1 (Routine) - Closed Specialty Diagnoses / Procedures Referred By Contact Refer red To Contact Diagnoses Multiple sclerosis (HCC) Abnormal MRI Beto Esparza MD Procedures MRI SPINE CERVICAL [facility] CON [address] [place], [place] [address] Referral ID Status Reason Start Date Expiration Date Visits Requ ested Visits Authorized [id number] Closed 08/07/2021 1 1 (Routine) - Closed Specialty Diagnoses / Procedures Referred By Contact Refer red To Contact Diagnoses Multiple sclerosis (HCC) Abnormal MRI Beto Esparza MD Procedures MRI BRAIN [facility] CON [address] [place], [place] [address] Referral ID Status Reason Start Date Expiration Date Visits Requ ested Visits Authorized [id number] Closed 08/07/2021 1 1 ther (Routine) - Closed Specialty Diagnoses / Procedures Referred By Contact Refer red To Contact Diagnoses Multiple sclerosis (HCC) Abnormal MRI Mild cognitive impairment, so stated Beto Esparza MD Procedures [facility] MULTIPLE SCLEROSIS [address] [place], [place] [address] Referral ID Status Reason Start Date Expiration Date Visits Requ ested Visits Authorized [id number] Closed 09/06/2021 1 1 Consultation (Routine) - Closed Specialty Diagnoses / Procedures Referred By Contact Refer red To Contact Neuropsychology Diagnoses Multiple sclerosis (HCC) Mild cognitive impairment, so stated Beto Esparza Md, Not Listed MD no address [address] [place] [address] Referral ID Status Reason Start Date Expiration Date Visits V isits Requested Authorized [id number] Closed Specialty 08/07/2021 1 1 Services Required Question Answer Reason for Referral Other Cognitive Issues - Spe cify in comments Individual to Contact Patient Comments To Gal Rivers, PhD for neuropsychometr ic testing. [address] [place] [address] Reason for Visit Reason Comments Consultation Patient trying to establish care with an MS specialists. Previously dx with MS 2017, symptomatic before that. Currently not on a DMT.Started at [facility], MS found as an incidental finding. Currently not strug gling with day to day neurological symptoms Fall risk assessment Fall assessment: Patient has had no falls in calendar year Encounter Details Date Type Department Care Team Description 08/07/2021 Office Visit [facility] Beto Esparza Multiple sclerosis (HCC) (Primary Dx); Neurology - Rut Mckeon MD Abnormal MRI; Center ([address] Mild cognitive impairment, s o stated; [address] [place] [address] [address] [place], [place] [address] Social History Tobacco Use Types Packs/Day [...] to administer or schedule monoclonal antibody treatment. [place] Dept of Health: COVID-19 Medication Options (https://www.health.[facility].wy.us/diseases/coronavirus/meds.html) Questionnaire for Monoclonal Antibody Treatment (https://z.[facility]/mnrap) COVID-19 Vaccine/Booster Our office does not have access to vaccines or boosters. We do not administer the vaccinations. Local pharmacies are following CDC guidelines and are not accepting orders from Dr. Esparza for an extradose that are more frequent the current CDC recommendations. Find COVID-19 Vaccine Locations in [place] (https://wy.gov/covid19/vaccine/find-vaccine/locations/index.jsp) COVID-19 Testing There are no barrier locations available throughout the [facility], the service is free and doesn't require an appointment. Locations include: [place], [facility], [place], [facility], [place], [place], [facility], [place], [facility], [place] and [place] Find COVID-19 Testing Locations in [place] (https://wy.gov/covid19/get-tested/testing-locations/index.jsp) General Recommendations Lifestyle and Diet We recommend [...] how they can help you, or contact [place] Quit Plan at or [email or web address].ShutterCal Counseling on Fall prevention: If you have [...] Currently not on a DMT. Started at [facility], MS found as an incidental finding. Currently not struggling with day to day neurological symptoms ??? Fall risk assessment Fall assessment: Patient has had no falls in calendar year The patient presents today for MS Consult. HPI MS Date of Diagnosis: 2016 at [facility] in [facility] Disease history - 1998: First symptoms [...] Faye, am serving as a trained medical and scientific illustrator to document services personally performed byBeto Esparza [...] - NOV/ - [facility] - Neuropsychometric testing documented in this encounter Plan of Treatment Scheduled Orders Name Type Priority Associated Diagnoses Order S chedule MRI SPINE THORACIC Imaging Routine Multiple scle rosis (HCC) Expected: 08/07/2021, [facility] CON Abnormal MRI Expires: 2022 Scheduled Referrals Name Type Priority Associated Diagnoses Order S chedule REFERRAL NEUROPSYCHOLOGY Follow Up Routine Multiple scleros is Ordered: 08/07/2021 ([facility]) Mild cognitive impairment, so stated documented [...] deficiency documented in this encounter Care Teams Nutrition Services Assistant Relationship Specialty Start Date End Date Saleem Jimenez PA PCP - General 12/15/[address] [place] [phone] Pamela, PCP - Primary Care Clinic 12/15/20 NO ADDRESS/PHONE/FAX AFFILIATED documented as of this encounter
--- OUTSIDE RECORDS SUMMARY | 2022-01-18 06:22 | XMS_ITS | Encounter Summary ---
:1970 Author Organization [facility] Address [address] [place] [address] Care Team Providers Name Role Phone Saleem Jimenez Primary Care Provider Unknown, Md Unavailable Unavailable Reason for Referral Other (Routine) - Authorized Specialty Diagnoses / Procedures Referred By Contact Refer red To Contact Diagnoses Multiple sclerosis (HCC) Abnormal MRI Mild cognitive impairment, so stated Vitamin D deficiency Optic neuropathy Beto Esparza MD Procedures LIZZIE NOLEN MULTIPLE SCLEROSIS [address] [place], [place] [address] Referral ID Status Reason Start Date Expiration Date Visits V isits Requested Authorized [id number] Authorized 11/14/2021 1 1 Reason for Visit Reason Comments Multiple Sclerosis MS Consult follow up Follow up Patient did not complete peggy ropsychometric testing, is amenable to try elsewhere Fall risk assessment Fall assessment: Patient has had no falls in calendar year Other (Routine) - Closed Specialty Diagnoses / Procedures Referred By Contact Refer red To Contact Diagnoses Multiple sclerosis (HCC) Abnormal MRI Mild cognitive impairment, so stated Beto Esparza MD Procedures LIZZIE NOLEN MULTIPLE SCLEROSIS [address] [place], [place] [address] Referral ID Status Reason Start Date Expiration Date Visits Requ ested Visits Authorized [id number] Closed 09/06/2021 1 1 Encounter Details Date Type Department Care Team Description 10/31/2021 Office Visit [facility] of Beto Esparza Multiple sclerosis (HCC) (Primary Dx); Neurology - Rut Mckeon MD Abnormal MRI; Center ([facility]) [address] Mild cognitive impairment, s o stated; [address] Vitamin D deficiency; [address], MD Optic neuropathy; [place] [address] Encounter for drug therapy; [id number] Advice given [...] Kenny Cervantes, am serving as a trained medical/surgery registered nurse to document services personally performed byBeto Esparza [...] ANTIBODY, Routine 10/31/2021 10:[address] don Results for this TOTAL ([facility]) AM CDT [...] 2:08 PM CDT Performed at: ??01 - [facility] [address] [place], [place] ??[address] Legal Operations Manager: Jaime Carr MD, Phone: ?? [phone] Performed at: ??02 - [facility] ??[id number] Legal Operations Manager: Reid Moon MD, Phone: ??[phone] Beto Esparza MD [facility] ORDERABLES Performing Organization Address City/State/ZIP Code Phon e Number [facility] 2 [facility] 1 T&B LYMPHOCYTE DIFFERENTIAL ([facility]) (10/31/2021 10:12 AM CDT) P athologist Signature Absolute 144 12 - 645 [facility] 1 CD19+Lymphocytes /uL ([facility]) Absoute CD 3 1,032 622 - [facility] 1 ([facility]) 2,402 /uL Absolute CD 4 629 359 - [facility] 1 [place] ([facility]) 1,519 /uL Absolute CD 8 399 [...] PM CDT Performed at: ??01 - [facility] [address] ??[id number] Legal Operations Manager: Jaime Carr MD, Phone: ?? [phone] Performed at: ??02 - [facility] ??[id number] Legal Operations Manager: Reid Moon MD, Phone: ??[phone] Beto Esparza MD [facility] ORDERABLES Performing Organization [...] PM CDT Performed at: ??01 - [facility] [address] ??[address] Legal Operations Manager: Jaime Carr MD, Phone: ?? [phone] Beto Esparza MD [facility] ORDERABLES Performing Organization Address City/[facility]/ZIP Code Phon e Number [facility] 1 HEP [...] PM CDT Performed at: ??01 - [facility] [address] ??[id number] Legal Operations Manager: Jaime Carr MD, Phone: ?? [phone] Beto Esparza MD [facility] ORDERABLES Performing Organization Address City/[facility] Code Phon e Number [facility] 1 HCV ANTIBODY [...] atitis C Virus (HCV) RNA, Diagnosis, ELOY (871848 ) and Hepatitis C Virus (HCV) Antibody with r eflex to Quantitative Real-time PCR (641981). Specimen Anatomical Collection Method Collection Time Receive d Time (Source) Location / / Volume Laterality Blood 10/31/2021 10:12 10/30/2021 AM CDT 11:00 PM CDT Narrative [facility] 1 - 11/06/2021 2:08 PM CDT Performed at: ??01 - [facility] ??[id number] Legal Operations Manager: Jaime Carr MD, Phone: ?? [phone] Beto Esparza MD [facility] ORDERABLES Performing Organization Address City/State/ZIP Code Phon e Number [facility] 1 HBSAG SCREEN ([facility]) (10/31/2021 10:12 AM CDT) P athologist Signature Hepatitis B Negative Negative [facility] 1 Surface Antigen Screen ([facility]) Specimen Anatomical Collection Method Collection Time Receive d Time (Source) Location / / Volume Laterality Blood 10/31/2021 10:12 10/30/2021 AM CDT 11:00 PM CDT Narrative [facility] 1 - 11/06/2021 2:08 PM CDT Performed at: ??01 - [facility] ??[address] Legal Operations Manager: Jaime Carr MD, Phone: ?? [phone] Beto Esparza MD [facility] ORDERABLES Performing Organization [...] PM CDT Performed at: ??01 - [facility] [address] ??[id number] Legal Operations Manager: Jaime Carr MD, Phone: ?? [phone] Beto Esparza MD [facility] ORDERABLES Performing Organization Address City/[facility]/ZIP Code Phon e Number [facility] 1 ALT/SGPT ([facility]) (10/31/2021 10:12 AM CDT) athologist Signature ALT (SGPT) 11 0 - 32 IU/L [facility] 1 ([facility]) Specimen Anatomical Collection Method Collection Time Receive d Time (Source) Location / / Volume Laterality Blood 10/31/2021 10:12 10/30/2021 AM CDT 11:00 PM CDT Narrative [facility] 1 - 11/06/2021 2:08 PM CDT Performed at: ??01 - [facility] [address] ??[address] Legal Operations Manager: Jaime Carr MD, Phone: ?? [phone] Beto Esparza MD [facility] ORDERABLES Performing Organization [...] PM CDT Performed at: ??01 - [facility] [address] ??[id number] Legal Operations Manager: Jaime Carr MD, Phone: ?? [phone] Beto Esparza MD [facility] ORDERABLES Performing Organization Address City/[facility] Code Phon e Number [facility] 1 (ABNORMAL) VITAMIN D, 25-HYDROXY ([facility]) (10/31/2021 10:12 AM CDT) P athologist Signature Vitamin D,25 29.2 (L) 30.0 - [facility] 1 Hydroxy 100.0 ([facility]) ng/mL Comment: Vitamin D deficiency has been defined by the Harmony of Medicine and an Endocrine Society practi ce guideline as a level of serum 25-OH vitamin D less than 20 ng/mL (1,2). The Endocrine Society went on to further define vitamin D insufficiency as a level between 21 and 29 ng/mL (2). 1. IOM ([employer] of Medicine). 2010. Di etary reference ?? [...] PM CDT Performed at: ??01 - [facility] [address] ??[id number] Legal Operations Manager: Jaime Carr MD, Phone: ?? [phone] Beto Esparza MD [facility] ORDERABLES Performing Organization Address City/[facility] Code Phon e Number [facility] 1 CALCIUM ([facility]) (10/31/2021 10:12 AM CDT) P athologist Signature Calcium 8.9 8.7 - 10.2 [facility] 1 ([facility]) mg/dL Specimen Anatomical Collection Method Collection Time Receive d Time (Source) Location / / Volume Laterality Blood 10/31/2021 10:12 10/30/2021 AM CDT 11:00 PM CDT Narrative [facility] 1 - 11/06/2021 2:08 PM CDT Performed at: ??01 - [facility] [address] ??[address] Legal Operations Manager: Jaime Carr MD, Phone: ?? [phone] Beto Esparza MD [facility] ORDERABLES Performing Organization [...] ion documented in this encounter Care Teams Crop Insurance Claims Adjuster Relationship Specialty Start Date End Date Saleem Jimenez PA PCP - General 12/15/20 [address], [place] [address] Pamela, PCP - Primary Care Clinic 12/15/20 NO ADDRESS/PHONE/FAX AFFILIATED documented as of this encounter
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
--- OUTSIDE RECORDS SUMMARY | 2022-01-18 06:22 | XMS_ITS | Encounter Summary ---
:1970 Author Organization [facility] Address [address] [place] [address] Care Team Providers Name Role Phone Saleem [...] on filedocumented in this encounter Care Teams Apprentice Jockey Relationship Specialty Start Date End Date Saleem Jimenez PA PCP - General 12/15/[address] [place] [address] Pamela, PCP - Primary Care Clinic 12/15/20 NO ADDRESS/PHONE/FAX AFFILIATED documented as of this encounter
--- NOTE | 2022-01-18 07:41 | W.ANESCHARGE ---
Anesthesia Charges Start Date/Time Anesthesia Start Date: 01/18/22 Anesthesia Start Time: 07:06 Stop Date/Time Anesthesia Stop Date: 01/18/22 Anesthesia Stop Time: 07:35 Summary Emergency: No
--- NOTE | 2022-01-18 08:02 | W.ANESCHARGE ---
Anesthesia Charges Start Date/Time Anesthesia Start Date: 01/18/22 Anesthesia Start Time: 07:06 Stop Date/Time Anesthesia Stop Date: 01/18/22 Anesthesia Stop Time: 07:35 Summary Emergency: No
== END 2022-01-18 06:19 | disposition home or self-care (01) ==
LOC: OP CLINIC 06:19
PROVIDERS: PCP Physician Assistant Medical; Visit Provider Internal Medicine
DX: Z12.11 Encounter for screening for malignant neoplasm of colon (principal)
CPT/HCPCS: 00812; 45378; J2405; J2704

== ENCOUNTER 2022-02-08 13:03 | Outpatient (CLI) | payer OTHER, SELFPAY ==
--- NOTE | 2022-02-08 13:00 | CRLHL7_ITS ---
For Patients: As a result of the Century Cures Act, medical imaging exams and procedure reports are released immediately into your electronic medical record. You may view this report before your referring provider. If you have questions, please contact your health care provider. BILATERAL BREAST MRI WITHOUT AND WITH GADOLINIUM, 02/08/2022 CLINICAL HISTORY: 51-year-old female with history of atypical lobular hyperplasia diagnosed from stereotactic biopsy of the RIGHT breast 1 o???clock position 4 cm from the nipple in 2018. INDICATION FOR BREAST MRI: Screening breast MRI in this high-risk woman. COMPARISON STUDIES: MRI 08/01/2020. Mammogram 07/06/2021. CONTRAST: 15 cc Dotarem. TECHNIQUE: The patient was positioned prone using a breast coil. Multiple imaging sequences were obtained using 1-1.5 mm thick slices with no gap. The image sequences include T2-weighted STIR in the axial plane, T1-weighted nonfat-saturated gradient echo in the axial plane, pre- and post-contrast T1-weighted FLASH 3D with fat suppression in the axial plane, and T1-weighted FLASH high-resolution 3D with fat suppression in the sagittal plane. Image post-processing was performed on a oboxo workstation. Complex 3D rendering including maximum intensity projections (MIPS) and volumetric renderings were obtained to optimize visualization of the extent of pathology and relationship to the nipple, skin, and chest wall. This aids in determining feasibility of breast conservation surgery. Subtraction, multiplanar reconstruction, mean curve determination, and angiogenesis mapping were also performed. The study was technically adequate. FINDINGS: Breast Density: Extreme fibroglandular tissue. Breast Background Enhancement: Moderate. RIGHT Breast/ LEFT Breast: Nodular background parenchymal enhancement. No suspicious mass or mass enhancement in either breast. Susceptibility artifact in the RIGHT breast from clip from previous biopsy clip. Lymph Nodes: No morphologically abnormal axillary lymph nodes or internal mammary lymph nodes. IMPRESSIONS AND RECOMMENDATIONS: No MRI findings for malignancy in either breast. No morphologically abnormal axillary lymph nodes or internal mammary lymph nodes. Recommend that the patient continue with yearly screening mammography. If screening MRIs are felt to be clinically indicated, recommend that these be offset at six-month intervals with the screening mammograms. BI-RADS: BI-RADS Category 2: Benign Yisel Casey M.D. Diagnostic/Breast Radiologist [email or web address] Transcribed: 10:17 a.mDinh GERARDO/Dictated by: Yisel Casey MD @ 02/13/2022 10:02:00 AM (Electronically Signed)
== END 2022-02-08 13:04 | disposition home or self-care (01) ==
LOC: MRI 13:03
PROVIDERS: PCP Physician Assistant Medical; Visit Provider Surgery
DX: Z12.31 Encounter for screening mammogram for malignant neoplasm of breast (principal)
CPT/HCPCS: 77049; A9575

== ENCOUNTER 2022-10-10 08:15 | Outpatient (CLI) | payer OTHER, SELFPAY ==
--- NOTE | 2022-10-10 08:15 | CRLHL7_ITS ---
For Patients: As a result of the Century Cures Act, medical imaging exams and procedure reports are released immediately into your electronic medical record. You may view this report before your referring provider. If you have questions, please contact your health care provider. BILATERAL SCREENING MAMMOGRAM WITH COMPUTER-AIDED DETECTION AND TOMOSYNTHESIS TECHNIQUE: CC and MLO views were obtained. These mammographic images have been obtained using full-field digital technique. These mammographic images were interpreted with the benefit of computer-aided detection. Breast Tomosynthesis was used in this interpretation. COMPARISON FILM: 07/06/21, 01/31/20, 01/13/19. FINDINGS: The breasts are extremely dense, which lowers the sensitivity of mammography IMPRESSION: There is no radiographic evidence for malignancy. ASSESSMENT: BI-RADS Category 1: Negative RECOMMENDATION: Routine screening mammogram in 1 year. A lay language report of this examination will be provided to the patient. Adrian Dotson M.D. Diagnostic Radiologist [email or web address] KONRAD/Dictated by: Adrian Dotson MD @ 10/10/2022 12:46:00 PM (Electronically Signed)
--- OUTSIDE RECORDS SUMMARY | 2022-10-10 08:17 | XMS_ITS | Continuity of Care Document ---
Author Name Unknown Organization [facility] Address [address] [address] Phone Care Team Providers Care Sample Maker Original Name Role Phone Beto Esparza MD Unavailable Unavailabl e Medications Medication Instructions Dosage Effective Dates (start - stop) Status Comments Ocrevus 30 mg/mL intravenous solution Administer OCREVUS 300mg IV Day 1 300mg, Day 15 300mg, 6 months from initial dose 600mg - Active Benadryl 25 mg capsule Administer BENADRYL 25mg PO 1-2 tabs pre-infusion (OCREVUS). - Active ibuprofen 600 mg tablet Administer IBUPROFEN 600mg PO PRN (OCREVUS). - Active ondansetron HCl 2 mg/mL intravenous solution Administer ONDANSETRON HCL 4mg times 1 repeat as needed PRN (OCREVUS). - Active Benadryl 25 mg capsule Administer BENADRYL 25mg IV PRN (OCREVUS). - Active Advance Directives Directive Yes / No Effective Date File Name No Information Encounters Encounter Description Practice Location Reason(s) For Visit Diagnoses Date Provider Providers Copied on Encounter [facility], [address] [place] [address], [id number], [place] tel:[phone] [facility] Multiple sclerosis Vilma Pérez. [address] [place], [place] [address]e N, [address], [place], [id number], [place]. tel:[phone] Family History Family Member Type Diagnosis Age At Onset No Information Payers Payer name Insurance type Covered green party ID Authoriza tion(s) No Information Social History Type Description Quantity Date Captured Comments Sex Female Smoking Status No Information Chief Complaint And Reason For Visit No Information Reason For Referral Reason For Referral No Information History Of Present Illness Encounter Date Complaint History Of Prese nt Illness No Information Functional Status Date Functional Assessmen t No Information Instructions Date Instruction Additional Infor mation No Information Assessments Type Assessment Date assessment Multiple sclerosis Patient Care Teams Name Effective Dates (start - stop) Status Members No Information
== END 2022-10-10 08:16 | disposition home or self-care (01) ==
PROVIDERS: PCP Physician Assistant Medical; Visit Provider Physician Assistant Medical
DX: Z12.31 Encounter for screening mammogram for malignant neoplasm of breast (principal); R92.2 Inconclusive mammogram
CPT/HCPCS: 77063; 77067

== ENCOUNTER 2022-11-22 22:08 | Outpatient (REF) | payer OTHER, SELFPAY ==
--- OUTSIDE RECORDS SUMMARY | 2022-11-22 22:11 | XMS_ITS | Continuity of Care Document ---
Author Name Unknown Organization [facility] Address [address] [address] [place] [address] Phone Care Team Providers Care Real Estate Rep Name Role Phone Buster Wakefield MD Unavailable Unavailable Allergies, Adverse Reactions, Alerts Substance Reaction Status Criticality hydrocortisone Hives Active No Informatio n Medications Medication Instructions Dosage Effective Dates (start - stop) Status Comments Paxil 40 mg tablet take 1 tablet by oral route every day 40 MG - Active MiralaxBisacodylMagCit Colon Prep Use as directed - Active Miralax 17 gram oral powder packet Use as directed - Active Procedures Procedure Date Offic Cons New/estab Mod Advance Directives Directive Yes / No Effective Date File Name No Information Encounters Encounter Description Practice Location Reason(s) For Visit Diagnoses Date Provider Providers Copied on Encounter Offic Cons New/estab Mod [facility], [address] [address], [place], [place], [id number], [place] tel:[phone] [facility] GI Symptoms or Concerns (chief complaint) Dysphagia, UnspecifiedConstipat ion UnspecifiedAbdominal PainDietary Surveil/credit counselor 5 Ashu Goins. [address] [facility], [place], [place], [id number] , [place]. tel:[phone] Ronda Covarrubias PAC. tel:[phone] erring Provider: May Navarro DUMONT L, [address], [place], [address]. tel:[phone] Family History Family Member Type Diagnosis Age At Onset Brother Problem (finding) alcoholism Mother Problem (finding) Son Problem (finding) Alive and well Father Problem (finding) Alive and well Payers Payer name Insurance type Covered constitution party ID Authoriza tion(s) No Information Social History Type Description Quantity Date Captured Comments Alcohol Use Details No Caffeine Use Details Unknown Tobacco Use Status Never smoked tobacco 2014 Smoking Status Never smoker Non-Smoking Tobacco Use Details : No Details Available : No Details Available Sex Female Vital Signs Date / Time: Height Weight BMI Pulse Rate Blood Pressure Temperature Respiratory Rate Body Surface Area Head Circumference Head Circ. Percentile Wt./Maurilio. Percentile BMI percentile Pulse Ox Inhaled Ox 7:58 AM 67.00 in 78.925 kg (174.00 lbs) 27.2 5 kg/m eter (2) 89 /min 110/64 mm[Hg] Chief Complaint And Reason For Visit From encounter dated '02/25/2014 08:00'. GI Symptoms or Concerns (chief complaint). Description: Agata Sheridan is a very pleasant 44-year-old female who is referred for issues with dysphagia, constipation, and abdominal pain. She states she has had these issues for years, but they have gradually worsened, and have been particularly bothersome over the last six months. She states that she feels bloated all the time. There is a low-levellower abdominal discomfort that is very sensitive to pressure such as she wears very loose clothingat all times. She states she has gained approximately 15 pounds over the last one year. She reportssome dysphagia which does sound esophageal in nature definitely after the oropharyngeal swallow for ease. She has never resorted to vomiting to bring the food back up. This will occur on will occur very intermittently and it is difficult for her to quantitate this. She states she had upper GI several years ago for several problems and no obvious etiologies were found. She also reports an upper end oscopy at an outside facility. All she can remember about this test is that she does not have celiac disease. She does have constipation having a bowel movement every two to three days. She will noteoccasional blood in the stool. With regard to her abdominal pain, she states it is a constant pressure that is there all the time. A one pack on her abdomen at night or has been massaging her lower abdomen will help the discomfort. At times, approximately once every other week she may notice the severity increases, but takes no specific medications to help this. Reason For Referral Reason For Referral No Information Plan Of Treatment Date Type Action Status Goal Lifestyle education regardin g diet completed History Of Present Illness Encounter Date Complaint History Of Prese nt Illness GI Symptoms or Concerns The symp toms began 6 months ago. The symptoms are reported as being mild. The symptoms occur constantly. Agata Sheridan is a very pleasant 44-year-old female who is referred for issues with dysphagia, constipation, and abdominal pain. She states she has had these issues for years, but they have gradually worsened, and have been particularly bothersome over the last six months. She states that she feels bloated all the time. There is a low-level lower abdominal discomfort that is very sensitive to pressure such as she wears very loose clothing at all times. She states she has gained approximately 15 pounds over the last one year. She reports some dysphagia which does sound esophageal in nature definitely after the oropharyngeal swallow for ease. She has never resorted to vomiting to bring the food back up. This will occur on will occur very intermittently and it is difficult for her to quantitate this. She states she had upper GI several years ago for several problems and no Functional Status Date Functional Assessmen t No Information Instructions Date Instruction Additional Infor dwight biopsies of esophagus, stomach Lifestyle education regarding di et Related to Dietary surveillance and counseling Constipation Related to Const ipation Unspecified Constipation Related to Const ipation Unspecified Irritable Bowel Syndrome Related to Constipation Unspecified Assessments Type Assessment Date assessment Dysphagia, Unspecified 15 assessment Constipation Unspecified 2014 assessment Abdominal Pain assessment Dietary Surveil/credit counselor 015 impression 1. Dysphagia. The pa osmar has had a history of dysphagia, but not biopsies of the esophagus. This could be a simple reflux stricture, although she denies significant reflux. We will plan an EGD to exclude eosinophilic esophagitis, esophagitis, stricture, or neoplasm.2. Constipation. We will start MiraLax 17 g daily as well as a high-fiber diet. Because she has had some bleeding associated with this, we will plan her on a colonoscopy to exclude structural pathology of the lower GI tract. I have also given the patient education materials on constipation and irritable bowel syndrome.3. Hematochezia. Colonoscopy is above.4. Abdominal discomfort. Given her long history of vague abdominal discomfort associated with constipation despite the constipation-predominant irritable bowel syndrome, simply be due to constipation. We will more aggressively manage her constipation with MiraLax (including the colonoscopy purge), but if she does not respond to this, we would consider tricyclic or antispasmodic medication.Thank you for involving us in the care of this pleasant patient. Mental Status Date Cognitive Assessment Orientation - Arnold ed to time, place, person, situation. Patient Care Teams Name Effective Dates (start - stop) Status Members No Information
--- OUTSIDE RECORDS SUMMARY | 2022-11-22 22:11 | XMS_ITS | Continuity of Care Document ---
Author Name Unknown Organization [facility] Address [address] [facility] [address] [place] [address] Phone Care Team Providers Care Lead Dental Assistant Name Role Phone Beto Esparza MD Unavailable [...] Diagnoses Date Provider Providers Copied on Encounter [facility], [address] [place] [address], [id number], [place] tel:[phone] [facility] No Information Vilma Pérez. [address], [address], [place], [id number] , [place]. tel:[phone] [facility], [address], [place], [place], [id number], [place] tel:[phone] [facility] Multiple sclerosis Vilma Pérez. [address], [address], [place], [place], [id number] , [place]. tel:[phone] Family History Family Member Type Diagnosis Age At Onset No Information Payers Payer name Insurance type Covered republican ID Authoriza tion(s) No Information Social History [...] mation No Information Assessments Type Assessment Date No Information Patient Care Teams Name Effective Dates (start - stop) Status Members No Information
[2022-11-22 23:21] LABS: Free T4 Free Thyroxine* 1.59 ng/dL (0.70-1.85)
[2022-11-22 23:35] LABS: Thyroid Stimulating Hormone* 0.409 uIU/mL (0.270-4.20)
[2022-11-24 06:55] LABS: Thyroglob Bill Billed; Thyroglobulin Antibody <0.9 IU/mL (0.0-4.0); Thyroglobulin, Serum or Plasma 0.2 ng/mL (1.3-31.8)
== END 2022-11-22 22:09 | disposition home or self-care (01) ==
LOC: NPINS 22:08
PROVIDERS: PCP Physician Assistant Medical; Visit Provider Internal Medicine Endocrinology, Diabetes & Metabolism
DX: C73 Malignant neoplasm of thyroid gland (principal); E89.0 Postprocedural hypothyroidism
CPT/HCPCS: 84432; 84439; 84443; 86800

== ENCOUNTER 2023-01-27 09:32 | Outpatient (CLI) | payer OTHER, SELFPAY ==
--- OUTSIDE RECORDS SUMMARY | 2023-01-27 09:35 | XMS_ITS | Continuity of Care Document ---
Author Name Unknown Organization [facility] Address [address] [facility] [address] [place] [address] Phone Care Team Providers Care Treasury Assistant Name Role Phone Beto Esparza MD [...] Diagnoses Date Provider Providers Copied on Encounter [facility], [address] [place] [address], [id number], [place] tel:[phone] [facility] No Information Vilma Pérez. [address], [address], [place], [id number] , [place]. tel:[phone] [facility], [address], [place], [place], [id number], [place] tel:[phone] [facility] Multiple sclerosis Vilma Pérez. [address], [address], [place], [place], [id number] , [place]. tel:[phone] Family History Family Member Type Diagnosis Age [...]
== END 2023-01-27 09:33 | disposition home or self-care (01) ==
PROVIDERS: PCP Physician Assistant Medical; Visit Provider Physician Assistant
DX: Z01.419 Encounter for gynecological examination (general) (routine) without abnormal findings (principal); E03.9 Hypothyroidism, unspecified; Z13.6 Encounter for screening for cardiovascular disorders; Z13.1 Encounter for screening for diabetes mellitus
CPT/HCPCS: 80061; 82947

== ENCOUNTER 2023-02-06 07:15 | Outpatient (CLI) | payer OTHER, SELFPAY ==
--- NOTE | 2023-02-06 07:15 | CRLHL7_ITS ---
For Patients: As a result of the Century Cures Act, medical imaging exams and procedure reports are released immediately into your electronic medical record. You may view this report before your referring provider. If you have questions, please contact your health care provider. CLINICAL HISTORY: Pelvic and perineal pain TECHNIQUE: 2D lees scale ultrasound. In addition color Doppler and spectral Doppler analysis was performed of the pelvis using a transabdominal and transvaginal approach. FINDINGS: Small intramural fibroid again noted measuring 8 x 5 x 4 millimeters within the left myometrium. The uterus measures 10.9 x 6.3 x 7.1 cm. The endometrium measures 8 millimeters. Cervical nabothian cysts incidentally noted measuring up to 2 cm. The right ovary measures 3.4 x 1.6 x 1.8 cm in size and the left ovary is not visualized. The right ovary demonstrates normal arterial and venous blood flow on color Doppler and spectral Doppler analysis. There are no suspicious fluid collections within the cul-de-sac. IMPRESSION: Normal right ovary. Left ovary not visualized. Similar small intramural fibroid. No adnexal mass or excess pelvic free fluid. Dictated by Adrian Dotson MD @ 02/06/2023 10:22:32 AM (Electronically Signed)
--- OUTSIDE RECORDS SUMMARY | 2023-02-06 07:17 | XMS_ITS | Continuity of Care Document ---
Author Name Unknown Organization [facility] Address [address] [facility] [address] [place] [address] Phone Care Team Providers Care Healthcare Recruiter Name Role Phone Beto Esparza MD Unavailable [...] Diagnoses Date Provider Providers Copied on Encounter [facility], [address] [place] [address], [id number], [place] tel:[phone] [facility] No Information Vilma Pérez. [address], [address], [place], [id number] , [place]. tel:[phone] [facility], [address], [place], [place], [id number], [place] tel:[phone] [facility] Multiple sclerosis Vilma Pérez. [address], [address], [place], [place], [id number] , [place]. tel:[phone] Family History Family Member Type Diagnosis Age At Onset No Information Payers Payer name Insurance type Covered constitution [...]
--- OUTSIDE RECORDS SUMMARY | 2023-02-06 07:18 | XMS_ITS | Continuity of Care Document ---
Author Name Unknown Organization [facility] Address [address] [address] [place] [address] Phone Care Team Providers Care Diesel Tractor Operator Name Role Phone Buster Wakefield MD Unavailable [...] Copied on Encounter Offic Cons New/estab Mod [facility], [address] [address], [place], [place], [id number], [place] tel:[phone] [facility] GI Symptoms or Concerns (chief complaint) Dysphagia, UnspecifiedConstipat ion UnspecifiedAbdominal PainDietary Surveil/drapery counselor 5 Ash[address] Goins. [address] [facility], [place], [place], [id number] , [place]. tel:[phone] Ronda Covarrubias PAC. tel:[phone] erring Provider: May Navarro DUMONT L, [address], [place], [address]. tel:[phone] Family History Family Member Type Diagnosis Age At Onset Brother Problem (finding) alcoholism Mother Problem (finding) Son Problem (finding) Alive and well Father Problem (finding) Alive and well Payers Payer name Insurance type Covered republican [...] Unspecified 2014 assessment Abdominal Pain assessment Dietary Surveil/drapery counselor 015 impression 1. Dysphagia. The pa [...] Mental Status Date Cognitive Assessment Orientation - [place] ed to time, place, person, situation. Patient Care Teams Name Effective Dates (start - stop) Status Members No Information
== END 2023-02-06 07:16 | disposition home or self-care (01) ==
LOC: US 07:16
PROVIDERS: PCP Physician Assistant Medical; Visit Provider Physician Assistant
DX: R10.2 Pelvic and perineal pain (principal)
CPT/HCPCS: 76830; 76856; 93976

== ENCOUNTER 2023-02-24 15:48 | Outpatient (CLI) | payer BC, SELFPAY ==
--- OUTSIDE RECORDS SUMMARY | 2023-02-24 15:55 | XMS_ITS | Clinical Summary ---
Author Name Unknown Organization [facility] Address [address] [facility] [address] Care Team Providers Care Career Transition Specialist Name Role Phone Clinic, [facility] Primary Care Provider Bernardo Nguyen MD Unavailable Allergies Active Allergy Reactions Criticality Noted Date Comments Hydrocortisone 07/01/2016 Medications Medication Sig Dispensed Refills Start Date End Date Status CELEXA 40 MG OR TABS 1 TABLET DAILY 0 0 02/18/2002 Active AUGUST 180 MG OR TABS 1 TABLET DAILY 30 6 09/20/2002 Active MECLIZINE HCL 12.5 MG OR TABS 1 TABLET 3 TIMES DAILY NEEDED 20 0 10/26/2002 Active Cholecalciferol 5000 units TABS Daily 0 Active PARoxetine (PAXIL) 30 MG tablet Daily 0 09/26/2017 Active Active Problems Problem Noted Date Diagnosed Date Migraine with aura 02/18/2002 Overview: Problem list name updated by automated process. Provider to review Allergic rhinitis due to other allergen 02/18/19 03 Other anxiety states 02/18/2002 Family History * Patient is adopted Medical History Relation Comments Cancer Mother of leukemia Diabetes No family hx of Relation Status Comments Mother Social History Tobacco Use Types Packs/Day Years Used Date Smoking Tobacco: Never Smokeless Tobacco: Never Tobacco Cessation:Counseling Given: Yes Alcohol Use Standard Drinks/Week Comments No 0 (1 standard drink = 0.6 oz pur e alcohol) Adolescent Education Answer Date Record ed Getting School Help Needed Not on file 11/16 Sex and Gender Information Value Date Recorded Sex Assigned at Not on file Gender Identity Not on file Sexual Orientation Not on file Last Filed Vital Signs Vital Sign Reading Time Taken Comments Blood Pressure 104/50 10/17/2017 9:04 AM CDT Pulse 63 07/01/2016 5:59 PM CDT Temperature 36.3 ??C (97.4 ??F) 07/01/2016 5:59 PM CD T Respiratory Rate 16 07/01/2016 5:59 PM CDT Oxygen Saturation 100% 07/01/2016 8:19 PM CDT Inhaled Oxygen Concentration - - Weight 70.8 kg (156 lb) 10/17/2017 9:04 AM CDT Height 167.6 cm (5' 6) 10/17/2017 9:04 AM CDT Body Mass Index 25.18 10/17/2017 9:04 AM CDT Plan of Treatment Not on file Care Teams Career Transition Specialist Relationship Specialty Start Date End Date Clinic, [address] [address] PCP - General 07/01/16 Bernardo Nguyen MD [address] [place] [address] Neurology 07/25/16
--- OUTSIDE RECORDS SUMMARY | 2023-02-24 15:55 | XMS_ITS | Continuity of Care Document ---
Author Name Unknown Organization [facility] Address [address] [facility] [address] [place] [address] Phone Care Team Providers Care Motor Overhauler Name Role Phone Beto Esparza MD Unavailable [...] Diagnoses Date Provider Providers Copied on Encounter [facility], [address] [place] [address], [id number], [place] tel:[phone] [facility] No Information Vilma Pérez. [address], [address], [place], [id number] , [place]. tel:[phone] [facility], [address], [place], [place], [id number], [place] tel:[phone] [facility] Multiple sclerosis Vilma Pérez. [address], [address], [place], [place], [id number] , [place]. tel:[phone] Family History Family Member Type Diagnosis Age At Onset No Information Payers Payer name Insurance type Covered alliance party ID Authoriza tion(s) No Information Social [...]
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
--- OUTSIDE RECORDS SUMMARY | 2023-02-24 15:55 | XMS_ITS | Clinical Summary ---
Author Name Unknown Organization [facility] Address [place], [place] [address] Care Team Providers Care Nitrating Acid Mixer Name Role Phone EricKatherine humphrey MAURICIO Primary Care Provider [phone] Allergies Active Allergy Reactions Criticality Noted Date Comments Cortisone Hives,Itching 09/05/2005 Nitroimidazoles Yeast Infection 04/16/2010 Used Flagyl oral, caused yeast infection in mouth Medications Medication Sig Dispensed Refills Start Date End Date Status levothyroxine (SYNTHROID) 125 mcg tabletIndications:Posto perative hypothyroidism Take 1 tablet by mouth before breakfast. 90 tablet 1 06/06/2015 Active Active Problems Problem Noted Date Diagnosed Date PMS (Premenstrual Syndrome) under research software engineer care 09/24 Anxiety State,- depression under psychiatrist ca re 09/25/2007 Allergic Rhinitis, Cause Unspecified sesonal til l duarte 09/25/2007 HERPETIC GINGIVOSTOMATITIS cold sores 07/14/2007 DIZZINESS chronic 07/29/2006 Encounters Date Type Department Care Team Description 02/18/2023 Telephone [facility] [address] [place] [address] Tahir Delarosa Cancer genetics 02/17/2023 Telephone [facility] [address] [place] [address] Foreign Mariano [place], [facility] Appointment (Cancer genetic counseling) 02/11/2023 Telephone [facility] [address] [address] Tahir Delarosa Cancer genetics 01/31/2023 Telephone [facility] [address] [place], [place] [id number] Tahir Delarosa Cancer genetics 01/27/2023 Lab Requisition [facility] [phone] Katherine Briceño PA-C from Last 3 Months Family History Medical History Relation Name Comments Psychiatric illness Maternal Aunt Other Maternal Grandfather emily diaz Psychiatric illness Maternal Grandmother Cancer Mother duy, @a ge 28 Psychiatric illness Other cousin o n mom's side bipolar Cancer-breast No Family History Cancer-ovarian [...] on file Sexual Orientation Not on file Obstetrics History Para Term AB IAB SAB Ectopic Multiple Livin g Live Births 3 2 2 0 1 0 1 0 0 2 3 Date Outcome GA Total Labor Labor/2nd/3rd Weight Sex Delivery Anes PTL Noemy A1 A5 Name Cl in 08/10 Term 39w 0d 3.77 kg (8 lb 5 oz) M Vag Franca ng Timoteo 06/10 Term 40w 0d 4.08 kg (9 lb) M VAGINAL VACU Franca ng Babar 04/29 SAB SPONTANEO US Dece ased Comments:No suction D& C Last Filed Vital Signs Vital Sign Reading Time Taken Comments Blood Pressure 111/70 06/27/2020 5:21 PM CDT Pulse 75 06/27/2020 5:21 PM CDT Temperature 36.3 ??C (97.4 ??F) 06/27/2020 5:21 PM CD T Respiratory Rate 12 06/27/2020 5:21 PM CDT Oxygen Saturation 95% 06/27/2020 5:21 PM CDT Inhaled Oxygen Concentration - - Weight 68 kg (150 lb) 06/27/2020 5:21 PM CDT Height 170.2 cm (5' 7) 06/27/2020 5:21 PM CDT Body Mass Index 23.49 06/27/2020 5:21 PM CDT Plan of Treatment Health Maintenance Due Date Last Done Comments Tdap 1982 Depression screening for age 12+ 1983 HIV for age 15-65 1986 BMI (ht and wt on same day) for age 18+ 1989 Hepatitis C screening for age 18-79 1989 Tetanus booster 1991 Colonoscopy through age 75 02/07/2016 Lipids for age 45-75 02/07/2016 10/26/2008 Mammogram for age 45-75 02/07/2016 01/11/2014, 04/23 Zoster (shingles) series for age 50+ (1 of 2) 2021 COVID-19 vaccine series (2022- season) 2022 06/16/2020, 05/26/2020 Influenza for age 50-64 10/11/2022 Pap test for age 21-65 01/27/2026 , 01/27/2023, 02/24/2017, Additional history exists Pneumococcal series for age 6-64 Aged Out No longer eligible based on patient's age to complete this topic Procedures Procedure Name Priority Date/Time Associated Diagnosis Comments LAB TRACKING EVENT Routine 01/27/2023 9: 45 AM HEAD SAWYER AUTOMATIC GATE MORTISER OPERATOR THIN PREP PAP SCREEN IMAGED Routine 01/27/2023 9:45 AM HEAD SAWYER AUTOMATIC HPV THIN PREP Routine 01/27/2023 9:45 AM HEAD SAWYER AUTOMATIC from Last 3 Months Results * LAB TRACKING EVENT (01/27/2023 9:45 AM HEAD SAWYER AUTOMATIC) Other (Other) Client Collect / Unknown 01/27/2023 9:45 AM HEAD SAWYER AUTOMATIC 01/27/2023 6:38 PM HEAD SAWYER AUTOMATIC May Matt Briceño PA-C LAB BILL ONLY [facility] [address] [place] [address], [place] * GATE MORTISER OPERATOR THIN PREP PAP SCREEN IMAGED (01/27/2023 9:45 AM HEAD SAWYER AUTOMATIC) Case Report Gynecologic Cytology Report ? Case: [id number] ? Authorizing Provider: ??Katherine Briceño PA-C ?Collected: ? 01/27/2023 0945 ? Ordering Location: ? [facility] ?Received: ?01/28/2023 1045 ? First Screen: ?Gonzalo Wilde ? Rescreen: ?Diane Funk ? Specimen: ?GATE MORTISER OPERATOR ThinPrep Vial Screening, Cervical ? 02/05/2023 1:40 PM HEAD SAWYER AUTOMATIC [facility]ORAT[facility] INTERPRETATION/ RESULT NEGATIVE FOR INTRAEPITHELIAL LESION OR MALIGNANCY (NIL) (none) 02/05/2023 1:40 PM HEAD SAWYER AUTOMATIC [employer] [facility]AL LAB[facility] IMEN ADEQUACY Satisfactory for evaluation Endocervical component present 02/05/2023 1:40 PM HEAD SAWYER AUTOMATIC [facility] HPV REQUEST HPV and PAP 02/05/2023 1:40 PM HEAD SAWYER AUTOMATIC [facility] Last Pap Date 02/24/2017 02/05/2023 1:40 PM HEAD SAWYER AUTOMATIC [facility] Last Pap Result NIL 1:40 PM HEAD SAWYER AUTOMATIC [facility] Abnormal Pap or Bacova Bx in last 5 years No 02/05/2023 1:40 PM HEAD SAWYER AUTOMATIC [facility] Menstrual Status Irregular Periods 02/05/2023 1:40 PM HEAD SAWYER AUTOMATIC [facility] Bacova Bx Done Today No 02/05/2023 1:40 PM HEAD SAWYER AUTOMATIC [facility] Additional Information 02/05/2023 1:40 PM HEAD SAWYER AUTOMATIC [facility] Comment: Interpreted at [facility] - [address] [facility] [address], [place] [address] Automated Review Successful 02/05/2023 1:40 PM HEAD SAWYER AUTOMATIC [facility] Comment:Specimen processed s uccessfully by automated datastage consultant device, ThinPrep Imaging System, [employer] ANCILLARY TESTING GATE MORTISER OPERATOR HPV Ordered, Please see separate report 02/05/2023 1:40 PM HEAD SAWYER AUTOMATIC [facility] Note The pap test is a screening technique, not a diagnostic procedure. It is used primarily to screen for squamous cancers and precursor lesions. Published studies have shown that it is subject to both false negative and false positive results. The pap test should not be used as the sole means to diagnose or exclude pre-malignant and malignant lesions. 02/05/2023 1:40 PM HEAD SAWYER AUTOMATIC [facility] Other (Cervical) 01/27/2023 9:45 AM HEAD SAWYER AUTOMATIC 01/28/2023 10:45 AM HEAD SAWYER AUTOMATIC Katherine Briceño PA-C PATHOLOGY/CYTOLOGY [facility] [address] [place] [address], [place] * HPV HIGH RISK (01/27/2023 9:45 AM HEAD SAWYER AUTOMATIC) TYPE 16 Negative Negative 01/29/2023 3:23 PM HEAD SAWYER AUTOMATIC [facility] TYPE 18 Negative Negative 01/29/2023 3:23 PM HEAD SAWYER AUTOMATIC [facility] OTHER HIGH RISK TYPES Negative Negative 01/29/2023 3:23 PM HEAD SAWYER AUTOMATIC [facility] Other (Cervical) 01/27/2023 9:45 AM HEAD SAWYER AUTOMATIC 01/28/2023 10:45 AM HEAD SAWYER AUTOMATIC Narrative [facility] - 01/29/2023 3:23 PM HEAD SAWYER AUTOMATIC HPV types 16, 18, 31, 33, 35, 39, 45, 51, 52, 56, 58, 59, 66 and 68 DNA were undetectable or below the pre-set threshold. Methodology: Zattoo Elmer 4800 HPV Test May Navarro MARTÍNEZ MICROBIOLOGY [facility] [address] [place] [address], from Last 3 Months Care Teams Nitrating Acid Mixer Relationship Specialty Start Date End Date NavarroMay Matt, MAURICIO [address] [place] [address] PCP - General Physician Sheetmetal Worker 06/23/15
--- OUTSIDE RECORDS SUMMARY | 2023-02-24 15:55 | XMS_ITS | Clinical Summary ---
Author Name Unknown Organization [facility] Address [address] [place] [address] Care Team Providers Care Adzing And Boring Machine Operator Name Role Phone Saleem Jimenez Primary Care Provider [phone] Unknown, Md Unavailable Unavailable Allergies Active Allergy [...] Management: MS Date of Diagnosis: 2017 at [facility] Disease history - 1998: First symptoms [...] 1971 Lipid Screening 1971 Pap Smear 1971 Anxiety Screening (JOSE-2) 02/07/1972 Depression Assessment (PHQ-2) 02/07/1972 Mammogram Screening 01/12/2016 01/11/2014 Adult Tetanus Booster 04/03/2016 04/03/2006 , 02/22/1998 Yearly Review of HCD 2021 Zoster Vaccine (1 of 2) 2021 COVID-19 Vaccine (2022-2 4 season) 2022 06/16/2020, 05/26/2020 Influenza Vaccine (#1) 2022 Hepatitis C Screening Completed 10/31/2021 Pneumococcal <65 Aged Out No longer e ligible based on patient's age to complete this topic Care Teams Adzing And Boring Machine Operator Relationship Specialty Start Date End Date Saleem Jimenez PA [address] [place] [id number] PCP - General 12/15/20 Pamela, NO ADDRESS/PHONE/FAX AFFILIATED PCP - Primary Care Clinic 12/15/20
--- OUTSIDE RECORDS SUMMARY | 2023-02-24 15:55 | XMS_ITS | Referral Summary ---
Author Name Unknown Organization [place] Address [address] [place] [address] Care Team Providers Care Warehouser Name Role Phone Clinic, [facility] Primary Care Provider Bernardo Nguyen MD Unavailable [phone] Allergies Active Allergy Reactions Criticality Noted Date [...] allergen 02/18/19 03 Other anxiety states 02/18/2002 Social History Tobacco Use Types Packs/Day Years [...] of Treatment Not on file Care Teams Warehouser Relationship Specialty Start Date End Date Clinic, [address] [id number] PCP - General 07/01/16 Bernardo Nguyen MD [address] [place] [address] Neurology 07/25/16
--- NOTE | 2023-02-24 16:00 | CRLHL7_ITS ---
For Patients: As a result of the Century Cures Act, medical imaging exams and procedure reports are released immediately into your electronic medical record. You may view this report before your referring provider. If you have questions, please contact your health care provider. INDICATION: Follow up left ovary TECHNIQUE: Transabdominal and transvaginal scanning of the left ovary was performed. Transvaginal scanning was performed to optimally evaluate the adnexa. Ovarian blood flow was evaluated with color-flow and pulsed Doppler. COMPARISON: Pelvic ultrasound exams of 02/06/2023 and 12/19/2021 FINDINGS: A simple left ovarian cyst, presumably follicular cysts, measuring 2.7 x 2.4 x 1.7 cm is demonstrated. The left ovary measures 4.0 x 2.8 x 1.5 cm. No adnexal mass is evident. No free fluid is demonstrated. IMPRESSION: Simple 2.7 cm left ovarian cyst, presumably a follicular cyst. Dictated by Feroz Valerio MD @ 02/25/2023 1:15:17 PM (Electronically Signed)
== END 2023-02-24 15:49 | disposition home or self-care (01) ==
PROVIDERS: PCP Physician Assistant Medical; Visit Provider Physician Assistant
DX: R10.2 Pelvic and perineal pain (principal); N83.202 Unspecified ovarian cyst, left side
CPT/HCPCS: 76830; 76856; 93976

== ENCOUNTER 2023-04-17 09:45 | Outpatient (CLI) | payer BC, SELFPAY | END 2023-04-17 09:46 | disposition home or self-care (01) | LOC: FRMREF 09:46 | PROVIDERS: PCP Physician Assistant Medical; Visit Provider Physician Assistant Medical | DX: E03.9 Hypothyroidism, unspecified (principal) | CPT/HCPCS: 84439; 84443 ==

== ENCOUNTER 2023-06-23 15:25 | Outpatient (CLI) | payer BC, SELFPAY ==
--- OUTSIDE RECORDS SUMMARY | 2023-06-23 15:28 | XMS_ITS | Clinical Summary ---
Author Name Unknown Organization [place] Address [address] [place] [address] Care Team Providers Care Kelp Or Seagrass Gatherer Name Role Phone Clinic, [facility] Primary Care Provider Bernardo Nguyen MD Unavailable [phone] Allergies Active Allergy Reactions Criticality Noted Date [...] 10/26/2002 Active Cholecalciferol 5000 units TABS Daily Active PARoxetine (PAXIL) 30 MG tablet Daily 09/26/2017 Active Active Problems Problem Noted Date [...] of Treatment Not on file Care Teams Kelp Or Seagrass Gatherer Relationship Specialty Start Date End Date Clinic, [address] [phone] PCP - General 07/01/16 Bernardo Nguyen MD [address] [place] [address] Neurology 07/25/16
--- OUTSIDE RECORDS SUMMARY | 2023-06-23 15:28 | XMS_ITS | Clinical Summary ---
Author Name Unknown Organization [facility] Address [address] [place] [address] Care Team Providers Care Social Media Assistant Name Role Phone Saleem Jimenez Primary Care Provider [phone] Unknown, Md Unavailable Unavailable Allergies Active Allergy Reactions Criticality Noted Date Comments Cortisone Hives,Itching 09/05/2005 Nitroimidazoles 04/16/2010 Other reaction(s): Yeast Infection Used Flagyl oral, caused yeast infection in mouth Medications Medication Sig Dispensed Refills Start Date End Date Status venlafaxine ER (EFFEXOR XR) 150 mg oral extended release capsule 24 HR Take 150 mg by mouth once daily. 05/28/2021 Active SYNTHROID 137 mcg oral tablet TAKE 1 TABLET BY MOUTH EVERY OTHER DAY. ALTERNATING WITH 125MCG. 07/04/2021 Active SYNTHROID 125 mcg oral tablet TAKE 1 TABLET BY MOUTH EVERY OTHER DAY. ALTERNATING WITH 137MCG. 07/04/2021 Active Cholecalciferol, Vitamin D3, 5,000 unit (125 mcg) oral tablet once daily. Active Active Problems Problem Noted Date Diagnosed Date Advice given about COVID-19 virus infection 10/12 Last Assessment & Plan: Assessment: Recommend the patient get a booster of the new bivalent vaccination. Plan: - Vaccinate with new Bivalent booster Dysesthesia 08/07/2021 Stress incontinence 08/07/2021 Mild cognitive impairment, so stated 08/07/2021 Overview: Dx Update from [facility] Last Assessment & Plan: Assessment: Cognitive concerns [...] Management: MS Date of Diagnosis: 2017 at [facility] Disease history - 1998: First symptoms at [...] 01/08/2021 Immunizations Name Administration Dates Next Due Hep B Adult 02/19/1999 MMR 08/14/2000 Pfizer 12+ Yrs MONOVALENT COVID Vaccine (purple cap) 06/16/2020,05/26/2020 Td 02/22/1998 Tdap 04/03/2006 Family History Medical History Relation Comments [...] Vaccine (1 of 2) 2021 COVID-19 Vaccine (3 - 2022-2 4 season) 2022 06/16/2020, 05/26/2020 Influenza Vaccine (Season Ended) 2023 Hepatitis C Screening Completed 10/31/2021 Pneumococcal <65 Aged Out No longer e ligible based on patient's age to complete this topic Procedures Procedure Name Priority Date/Time Associated Diagnosis Comments HCV ANTIBODY ([facility]) Routine 10/31/2021 10:12 AM CDT Encounter for drug therapy MAMMO DIGITAL DIAG BILAT Routine 01/11/2014 10:46 AM COUNTER TOP MAKER from Last 3 Months or Most Recently Relevant to Health Maintenance Results * HCV ANTIBODY ([facility]) (10/31/2021 10:12 AM CDT) Hepatitis C Virus Antibody ([facility]) <0.1 0.0 - 0.9 s/co ratio [facility] 1 Comment: ?Negative: ? < 0.8 ? Indeterminate: 0.8 - 0.9 ?Positive: ? > 0.9 HCV antibody alone does not differentiate between previous resolved infection and active infection. The CDC and current clinical guidelines recommend that a positive HCV antibody result be followed up with an HCV RNA test to support the diagnosis of acute HCV infection. [facility] offers Hepatitis C Virus (HCV) RNA, Diagnosis, ELOY ([id number]) and Hepatitis C Virus (HCV) Antibody with reflex to Quantitative Real-time PCR ([id number]). Blood 10/31/2021 10:1 2 AM CDT 10/30/2021 11:00 PM CDT Narrative [facility] 1 - 11/06/2021 2:08 PM CDT Performed at: ??01 - [facility] [address] [place] [address] ??[id number] Optoelectronics Engineer: Jaime Carr MD, Phone: ??[phone] Beto Esparza MD [facility] O RDERABLES [facility] 1 from Last 3 Months or Most Recently Relevant to Health Maintenance Care Teams Social Media Assistant Relationship Specialty Start Date End Date Saleem Jimenez PA [address] [place] [phone] PCP - General 12/15/20 Unknown, NO ADDRESS/PHONE/FAX AFFILIATED PCP - Primary Care Clinic 12/15/20
--- OUTSIDE RECORDS SUMMARY | 2023-06-23 15:28 | XMS_ITS | Continuity of Care Document ---
Author Name Unknown Organization [facility] Address [address] [address] [place] [address] Phone Care Team Providers Care Washateria Attendant Name Role Phone Buster Wakefield MD Unavailable [...] Copied on Encounter Offic Cons New/estab Mod [facility], [address] [address], [place], [place], [id number], [place] tel:[phone] [facility] GI Symptoms or Concerns (chief complaint) Dysphagia, UnspecifiedConstipat ion UnspecifiedAbdominal PainDietary Surveil/counselor marriage and family 5 Ash[address] Goins. [address] [facility], [place], [place], [id number] , [place]. tel:[phone] Ronda Covarrubias PAC. tel:[phone] erring Provider: May Navarro DUMONT L, [address], [place], [address]. tel:[phone] Family History Family Member Type Diagnosis Age At Onset Brother Problem (finding) alcoholism Mother Problem (finding) Son Problem (finding) Alive and well Father Problem (finding) Alive and well Payers Payer name Insurance type Covered alliance [...] Unspecified 2014 assessment Abdominal Pain assessment Dietary Surveil/counselor marriage and family 015 impression 1. Dysphagia. The pa osmar [...] Mental Status Date Cognitive Assessment Orientation - [place] ed to time, place, person, situation. Patient Care Teams Name Effective Dates (start - stop) Status Members No Information
--- OUTSIDE RECORDS SUMMARY | 2023-06-23 15:28 | XMS_ITS | Referral Summary ---
Author Name Unknown Organization [facility] Address [address] [place] [address] Care Team Providers Care Director Of Manufacturing Name Role Phone Saleem Jimenez Primary Care Provider [phone] Unknown, Md Unavailable Unavailable Allergies Active Allergy [...] so stated 08/07/2021 Overview: Dx Update from [facility] Last Assessment & Plan: Assessment: Cognitive concerns [...] Management: MS Date of Diagnosis: 2017 at [facility] Disease history - 1998: First symptoms at [...] (purple cap) 06/16/2020,05/26/2020 Td 02/22/1998 Tdap 04/03/2006 Social History Tobacco Use Types Packs/Day [...] CDT Plan of Treatment Not on file Procedures Procedure Name Priority Date/Time Associated Diagnosis Comments HCV ANTIBODY ([facility]) Routine 10/31/2021 10:12 AM CDT Encounter for drug therapy MAMMO DIGITAL DIAG BILAT Routine 01/11/2014 10:46 AM BOXER OPERATOR from Last 3 Months or Most Recently [...] Hepatitis C Virus (HCV) RNA, Diagnosis, ELOY ([id number]) and Hepatitis C Virus (HCV) Antibody with reflex to Quantitative Real-time PCR ([id number]). Blood 10/31/2021 10:1 2 AM CDT 10/30/2021 11:00 PM CDT Narrative [facility] 1 - 11/06/2021 2:08 PM CDT Performed at: ??01 - [facility] [address] ??[id number] Ultrasonic Solderer: Jaime Carr MD, Phone: ??[phone] Beto Esparza MD [facility] O RDERABLES [facility] 1 from Last 3 Months or Most Recently Relevant to Health Maintenance Care Teams Director Of Manufacturing Relationship Specialty Start Date End Date Saleem Jimenez PA [address] [place] [address] PCP - General 12/15/20 Pamela, NO ADDRESS/PHONE/FAX AFFILIATED PCP - Primary Care Clinic 12/15/20
--- OUTSIDE RECORDS SUMMARY | 2023-06-23 15:28 | XMS_ITS | Referral Summary ---
Author Name Unknown Organization [place] Address [address] [facility] [place] [address] Care Team Providers Care Wharf Attendant Name Role Phone Clinic, [facility] Primary Care Provider Bernardo Nguyen MD Unavailable [phone] Allergies Active Allergy Reactions Criticality Noted Date [...] of Treatment Not on file Care Teams Wharf Attendant Relationship Specialty Start Date End Date Clinic, [address] [phone] PCP - General 07/01/16 Bernardo Nguyen MD [address] [place] [address] Neurology 07/25/16
--- OUTSIDE RECORDS SUMMARY | 2023-06-23 15:28 | XMS_ITS | Clinical Summary ---
Author Name Unknown Organization [facility] Address [place], [place] [address] Care Team Providers Care Photography Sales Associate Name Role Phone Katherine Briceño MAURICIO Primary Care Provider [phone] Allergies Active Allergy Reactions Criticality Noted Date Comments Cortisone Hives,Itching 09/05/2005 Nitroimidazoles Yeast Infection 04/16/2010 Used Flagyl oral, caused yeast infection in mouth Medications Medication Sig Dispensed Refills Start Date End Date Status levothyroxine (SYNTHROID) 125 mcg tabletIndications:Posto perative hypothyroidism Take 1 tablet by mouth before breakfast. 90 tablet 1 06/06/2015 Active Active Problems Problem Noted Date Diagnosed Date PMS (Premenstrual Syndrome) under youth advocate care 09/24 Anxiety State,- depression under psychiatrist ca re 09/25/2007 Allergic Rhinitis, Cause Unspecified sesonal til l duarte 09/25/2007 HERPETIC GINGIVOSTOMATITIS cold sores 07/14/2007 DIZZINESS chronic 07/29/2006 Encounters Date Type Department Care Team Description 05/20/2023 Telephone [facility] [address] [place] [address] Foreign Mariano, [place], [facility] [place] (Cancer genetic counseling) 05/12/2023 Telephone [facility] [address], [place] [address] Foreign Mariano [place], [facility] Appointment (Cancer genetic counseling) 04/28/2023 Telephone [facility] [address] [place] [address] Tahir Delarosa Cancer genetics from Last 3 Months Family History Medical [...] 2 3 Date Outcome GA Total Labor Labor//3rd Weight Sex Delivery Anes PTL Noemy A1 [...] (1 of 2) 2021 COVID-19 vaccine series (3 - 2022-24 season) 2022 06/16/2020, 05/26/2020 Influenza for age 50-64 10/12/2023 Pap test for age 21-65 01/27/2026 , 01/27/2023, 02/24/2017, Additional history exists Pneumococcal series for age 6-64 Aged Out No longer eligible based on patient's age to complete this topic Procedures Procedure Name Priority Date/Time Associated Diagnosis Comments HPV THIN PREP Routine 01/27/2023 9:45 AM SYSTEMS ADMINISTRATION ANALYST XR MAMMO BILAT DIAG FFDM ([place]) Routine 01/11/2014 10:46 AM SYSTEMS ADMINISTRATION ANALYST Breast mass LIPID PANEL Routine 10/26/2008 11:02 AM CDT Screening for Lipoid Disorders from Last 3 Months or Most Recently Relevant to Health Maintenance Results * HPV HIGH RISK (01/27/2023 9:45 AM SYSTEMS ADMINISTRATION ANALYST) TYPE 16 Negative Negative 01/29/2023 3:23 PM SYSTEMS ADMINISTRATION ANALYST [facility] TYPE 18 Negative Negative 01/29/2023 3:23 PM SYSTEMS ADMINISTRATION ANALYST [facility] OTHER HIGH RISK TYPES Negative Negative 01/29/2023 3:23 PM SYSTEMS ADMINISTRATION ANALYST [facility] Other (Cervical) 01/27/2023 9:45 AM SYSTEMS ADMINISTRATION ANALYST 01/28/2023 10:45 AM SYSTEMS ADMINISTRATION ANALYST Narrative [facility] - 01/29/2023 3:23 PM SYSTEMS ADMINISTRATION ANALYST HPV types 16, 18, 31, 33, 35, 39, 45, 51, 52, 56, 58, 59, 66 and 68 DNA were undetectable or below the pre-set threshold. Methodology: Justice Elmer 4800 HPV Test Katherine Briceño PA-C MICROBIOLOGY [facility] [address] [place] [address], [place] * XR MAMMO BILAT DIAG FFDM (01/11/2014 10:46 AM SYSTEMS ADMINISTRATION ANALYST) Anatomical Region Laterality Modality BREASTS, Breast Left, Breast Right Bilateral Mammography 01/11/2014 10:4 6 AM SYSTEMS ADMINISTRATION ANALYST Narrative 01/12/2014 7:38 AM SYSTEMS ADMINISTRATION ANALYST XR MAMMOGRAM BILATERAL DIAGNOSTIC FFDM, US BREAST UNILATERAL RIGHT 01/11/2014 10:46 AM INDICATION: Right breast lump. COMPARISON: 04/23/2010. MAMMOGRAPHIC FINDINGS: Bilateral full-field digital diagnostic mammograms performed. The breasts are extremely dense, which lowers the sensitivity of mammography. No mammographic evidence of malignancy in either breast or significant interval change. Images evaluated with the assistance of CAD. ULTRASOUND FINDINGS: Right breast ultrasound was then performed, targeted to the palpable area of concern. In the 12:00 position, no solid masses or cysts are identified. IMPRESSION: ACR BI-RADS Category 1: Negative. Results given to the patient who should resume annual screening mammography. ?? Procedure Note Sonali De La Paz MD - 01/12/2014 XR MAMMOGRAM BILATERAL DIAGNOSTIC FFDM, US BREAST UNILATERAL RIGHT 01/11/2014 10:46 AM INDICATION: Right breast lump. COMPARISON: 04/23/2010. MAMMOGRAPHIC FINDINGS: Bilateral full-field digital diagnostic mammogramsperformed. The breasts are extremely dense, which lowers the sensitivityof mammography. No mammographic evidence of malignancy in either breast orsignificant interval change. Images evaluated with the assistance ofCAD. ULTRASOUND FINDINGS: Right breast ultrasound was then performed, targetedto the palpable area of concern. In the 12:00 position, no solid masses orcysts are identified. IMPRESSION: ACR BI-RADS Category 1: Negative. Results given to the patient who should resume annual screeningmammography. Ronda MAYNARD MAMMO * LIPID PANEL (10/26/2008 11:02 AM CDT) CHOLESTEROL,TOTAL 140 110 - 199 mg/dL [facility] TRIGLYCERIDES 90 40 - 149 mg/dL [facility] HDL CHOLESTEROL 63 >40 mg/dL [facility] CHOL/HDL RATIO 2.22 <4.51 [facility] LDL CHOLESTEROL 59 <131 mg/dL [facility] PATIENT STATUS Fasting [facility] Blood specimen (specimen) BLOOD SPECIMEN / Unknown 10/26/2008 11:02 AM CDT 10/26/2008 10:52 AM CDT Yue Nguyen NP CHEMISTRY [facility] INTERNAL ZIP [address] [place] [address] from Last 3 Months or Most Recently Relevant to Health Maintenance Care Teams Photography Sales Associate Relationship Specialty Start Date End Date Navarro May Matt, MAURICIO [address] [place] [address] PCP - General Physician Medical Record Consultant 06/23/15
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
--- NOTE | 2023-06-23 15:30 | MR_ITS ---
Patient: NINO MCINTOSH Facility:?[facility] RIS Patient ID:?[id number] Site Patient ID:?[id number]. Site :?[id number] Study:?MRI-Breast W/ and W/O Cont 12 CC DOATERM-06/23/2023 9:07:50 AM Ordering Physician:?HARRY CHIN Final Report: BILATERAL BREAST MRI WITHOUT AND WITH GADOLINIUM CLINICAL HISTORY: Personal history of atypical lobular hyperplasia diagnosed by needle biopsy 01/20/2018 RIGHT breast. Family history of breast cancer. INDICATION FOR BREAST MRI: Screening in this woman with elevated risk for breast cancer. COMPARISON STUDIES: Bilateral mammogram 10/10/2022, breast MRI 02/08/2022. CONTRAST: 12 mL Dotarem. TECHNIQUE: The patient was positioned prone using a breast coil. Multiple imaging sequences were obtained using 1-1.5 mm thick slices with no gap. The image sequences include T2-weighted STIR in the axial plane, T1-weighted nonfat-saturated gradient echo in the axial plane, pre- and post-contrast T1-weighted FLASH 3D with fat suppression in the axial plane, and T1-weighted FLASH high resolution 3D with fat suppression in the sagittal plane. Image post-processing was performed on a Support[employer] workstation. Complex 3D rendering including maximum intensity projections (MIPS) and volumetric renderings were obtained to optimize visualization of the extent of pathology and relationship to the nipple, skin, and chest wall. This aids in determining feasibility of breast conservation surgery. Subtraction, multiplanar reconstruction, mean curve determination, and angiogenesis mapping were also performed. The study was technically adequate. FINDINGS: Amount of Fibroglandular Tissue: Extreme fibroglandular tissue. Breast Background Enhancement: Mild background enhancement . RIGHT Breast: Signal void present at the site of the biopsy. No suspicious mass or non-mass enhancement. LEFT Breast: No suspicious mass or non-mass enhancement. Lymph Nodes: No suspicious lymph nodes. IMPRESSIONS AND RECOMMENDATIONS: Negative for signs of malignancy. Follow-up with annual screening mammography. Follow-up with annual breast MRI offset by six-months with the mammogram. BI-RADS Category 1: Negative Dictated by Julienne Renteria MD @ 06/25/2023 4:26:37 PM jj/Dictated by: Julienne Renteria MD @ 06/25/2023 4:26:00 PM Signed by:?Julienne Renteria MD @06/25/2023 5:10:04 PM (Electronic Signature)
== END 2023-06-23 15:26 | disposition home or self-care (01) ==
LOC: MRI 15:26
PROVIDERS: PCP Physician Assistant Medical; Visit Provider Surgery
DX: Z12.39 Encounter for other screening for malignant neoplasm of breast (principal); N60.91 Unspecified benign mammary dysplasia of right breast
CPT/HCPCS: 77049; A9575

== ENCOUNTER 2024-01-05 14:44 | Outpatient (CLI) | payer BC, SELFPAY ==
--- NOTE | 2024-01-05 14:40 | CRLHL7_ITS ---
For Patients: As a result of the Century Cures Act, medical imaging exams and procedure reports are released immediately into your electronic medical record. You may view this report before your referring provider. If you have questions, please contact your health care provider. BILATERAL SCREENING MAMMOGRAM WITH COMPUTER-AIDED DETECTION AND TOMOSYNTHESIS TECHNIQUE: CC and MLO views were obtained. These mammographic images have been obtained using full-field digital technique. These mammographic images were interpreted with the benefit of computer-aided detection. Breast Tomosynthesis was used in this interpretation. COMPARISON FILM: 10/10/22, 07/06/21, 01/31/20. FINDINGS: The breasts are extremely dense, which lowers the sensitivity of mammography. IMPRESSION: There is no radiographic evidence for malignancy. ASSESSMENT: BI-RADS Category 2: Benign RECOMMENDATION: Routine screening mammogram in 1 year. A lay language report of this examination will be provided to the patient. Adrian Dotson M.D. Diagnostic Radiologist [email or web address] SP/Dictated by: Adrian Dotson MD @ 01/06/2024 9:21:00 AM (Electronically Signed)
--- OUTSIDE RECORDS SUMMARY | 2024-01-05 14:47 | XMS_ITS | Referral Summary ---
Author Organization [facility] Address [address] [place] [address] Care Team Providers Care Automotive Detailer Name Role Phone Clinic, [facility] Primary Care Provider Bernardo Nguyen MD Unavailable [phone] Allergies Active Allergy Reactions Criticality Noted Date Comments Hydrocortisone 07/01/2016 Medications CELEXA 40 MG OR TABS 1 TABLET DAILY 0 0 02/18/2002 Active AUGUST 180 MG OR TABS 1 TABLET DAILY 30 6 09/20/2002 Active MECLIZINE HCL 12.5 MG OR TABS 1 TABLET 3 TIMES DAILY NEEDED 20 0 10/26/2002 Active Cholecalciferol 5000 units TABS Daily Acti ve PARoxetine (PAXIL) 30 MG tablet Daily 09/26/2017 Active Active Problems Problem Noted Date Diagnosed Date Migraine with aura 02/18/2002 Overview (11/10/2014): Problem list name updated by automated process. 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 Not on file Not on file No t on file Last Filed Vital Signs Vital Sign Reading Time Taken Comments Blood Pressure 104/50 10/17/2017 9:04 AM CDT Pulse 63 07/01/2016 5:59 PM CDT Temperature 36.3 C (97.4 F) 07/01/2016 5:59 PM CDT Respiratory Rate 16 07/01/2016 5:59 PM CDT Oxygen Saturation 100% 07/01/2016 8:19 PM CDT Inhaled Oxygen Concentration - - Weight 70.8 kg (156 lb) 10/17/2017 9:04 AM CDT Height 167.6 cm (5' 6) 10/17/2017 9:04 AM CDT Body Mass Index 25.18 10/17/2017 9:04 AM CDT Plan of Treatment Not on file Insurance [facility] Care Teams Automotive Detailer Relationship Specialty Start Date End Date [facility], [address] [id number] PCP - General 07/01/16 Bernardo Nguyen MD [address] [place] [address] Neurology 07/25/16
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
--- OUTSIDE RECORDS SUMMARY | 2024-01-05 14:47 | XMS_ITS | Referral Summary ---
Author Organization [facility] Address [address] [place] [id number] Care Team Providers Care Cement Mixer Driver Name Role Phone Saleem Jimenez Primary Care Provider [phone] Unknown, Md Unavailable Unavailable Allergies Active Allergy [...] - NOV/ - Follow up to review [facility] records and DMT discussion - Neuropsychometric testing MS History 01/08/2021 Overview (08/07/2021): Disease Management: MS Date of Diagnosis: 2016 at [facility] in [facility] Disease history - [...] absorbed PF (2 Lf) 02/22/1998 Tdap 04/03/2006 Social History Tobacco Use [...] Priority Date/Time Associated Diagnosis Comments HCV ANTIBODY ([facility]) Routine 10/31/2021 10:12 AM CDT Encounter for drug therapy from Last 3 Months or Most Recently Relevant to Health Maintenance Results * HCV ANTIBODY ([facility]) (10/31/2021 10:12 AM CDT) [facility]atitis [facility] <0.1 0.0 - 0.9 s/co ratio [facility] 1 Comment: Negative: < 0.8 Indeterminate: 0.8 - 0.9 Positive: > 0.9 HCV antibody alone does not differentiate between previous resolved infection and active infection. The CDC and current clinical guidelines recommend that a positive HCV antibody result be followed up with an HCV RNA test to support the diagnosis of acute HCV infection. [facility] Hepatitis C Virus (HCV) RNA, Diagnosis, ELOY (524980) and Hepatitis C Virus (HCV) Antibody with reflex to Quantitative Real-time PCR (546005). Blood 10/31/2021 10:1 2 AM CDT 10/30/2021 11:00 PM CDT Narrative [facility] 1 - 11/06/2021 2:08 PM CDT Performed at: [address] [id number] Decorating Machine Operator: Jaime Carr MD, Phone: [phone] us Beto Esparza MD [facility] S Final Result [facility] 1 from Last 3 Months or Most Recently Relevant to Health Maintenance Insurance [employer] OPEN ACCESS/CHOICE Care Teams Cement Mixer Driver Relationship Specialty Start Date End Date Saleem Jimenez PA [address] [place] [address] PCP - General 12/15/20 Unknown, NO ADDRESS/PHONE/FAX AFFILIATED PCP - [facility] 12/15/20
--- OUTSIDE RECORDS SUMMARY | 2024-01-05 14:47 | XMS_ITS | Clinical Summary ---
Author Organization [facility] Address [place], [place] [address] Care Team Providers Care Photostatic Copy Maker Name Role Phone EricKatherine humphrey MAURICIO Primary Care Provider [phone] Allergies Active Allergy Reactions Criticality Noted Date Comments Cortisone Hives,Itching 09/05/2005 Nitroimidazoles Yeast Infection 04/16/2010 Used Flagyl oral, caused yeast infection in mouth Medications Medication Sig Dispensed Refills Start Date End Date Status levothyroxine (SYNTHROID) 125 mcg tabletIndications:Posto perative hypothyroidism Take 1 tablet by mouth before breakfast. 90 tablet 1 06/06/2015 Active Active Problems Problem Noted Date Diagnosed Date PMS (Premenstrual Syndrome) under fur dressing supervisor care 09/24 Anxiety State,- depression under psychiatrist ca re 09/25/2007 Allergic Rhinitis, Cause Unspecified sesonal til l duarte 09/25/2007 HERPETIC GINGIVOSTOMATITIS cold sores 07/14/2007 DIZZINESS chronic 07/29/2006 Family History Medical History Relation Name Comments Psychiatric illness Maternal Aunt Other Maternal Grandfather emphyse ma Psychiatric illness Maternal Grandmother Cancer Mother luaretha, @a ge 28 Psychiatric illness Other cousin [...] Outcome GA Total Labor Labor/2nd/3rd Weight Sex Type Anes PTL Noemy A1 A5 Name Clin 2003 Term 39w 0d 3.77 kg (8 lb 5 oz) M Vag Livin g Timoteo 2005 Term 40w 0d 4.08 kg (9 lb) M VAGINA L VACU Livin g Babar 2006 SAB SPONTA NEOUS Decea sed Comments:No suction D& C Last Filed Vital Signs Vital Sign Reading Time Taken Comments Blood Pressure 111/70 06/27/2020 5:21 PM CDT Pulse 75 06/27/2020 5:21 PM CDT Temperature 36.3 C (97.4 F) 06/27/2020 5:21 PM CDT Respiratory Rate 12 [...] (1 of 2) 2021 COVID-19 vaccine series ( season) 2023 06/16/2020, 05/26/2020 Influenza for age 50-64 10/12/2023 Pap test for age 21-65 01/27/2026 , 01/27/2023, 02/24/2017, Additional history exists Pneumococcal series for age 6-64 Aged Out No longer eligible based on patient's age to complete this topic Procedures Procedure Name Priority Date/Time Associated Diagnosis Comments HPV HIGH RISK Routine 01/27/2023 9:45 AM SECRETARY ADMINISTRATIVE ASSISTANT XR MAMMO BILAT DIAG FFDM (IA) Routine 01/11/2014 10:46 AM SECRETARY ADMINISTRATIVE ASSISTANT Breast mass LIPID PANEL Routine 10/26/2008 11:02 AM CDT Screening for Lipoid Disorders from Last 3 Months or Most Recently Relevant to Health Maintenance Results * HPV HIGH RISK (01/27/2023 9:45 AM SECRETARY ADMINISTRATIVE ASSISTANT) TYPE 16 Negative Negative 01/29/2023 3:23 PM SECRETARY ADMINISTRATIVE ASSISTANT [facility] TYPE 18 Negative Negative 01/29/2023 3:23 PM SECRETARY ADMINISTRATIVE ASSISTANT [facility] OTHER HIGH RISK TYPES Negative Negative 01/29/2023 3:23 PM SECRETARY ADMINISTRATIVE ASSISTANT [facility] Other (Cervical) 01/27/2023 9:45 AM SECRETARY ADMINISTRATIVE ASSISTANT 01/28/2023 10:45 AM SECRETARY ADMINISTRATIVE ASSISTANT Narrative [facility] - 01/29/2023 3:23 PM SECRETARY ADMINISTRATIVE ASSISTANT HPV types 16, 18, 31, 33, 35, 39, 45, 51, 52, 56, 58, 59, 66 and 68 DNA were undetectable or below the pre-set threshold. Methodology: Justice Elmer 4800 HPV Test May Matt Briceño PA-C MICROBIOLOGY [facility] [address] [place] [address], * XR MAMMO BILAT DIAG FFDM (01/11/2014 10:46 AM SECRETARY ADMINISTRATIVE ASSISTANT) Anatomical Region Laterality Modality BREASTS, Breast Left, Breast Right Bilateral Mammography 01/11/2014 10:4 6 AM SECRETARY ADMINISTRATIVE ASSISTANT Narrative 01/12/2014 7:38 AM SECRETARY ADMINISTRATIVE ASSISTANT XR MAMMOGRAM BILATERAL DIAGNOSTIC FFDM, US BREAST [...] patient who should resume annual screening mammography. Procedure Note Sonali De La Paz MD [...] CDT) CHOLESTEROL,TOTAL 140 110 - 199 mg/dL [facility] TRIGLYCERIDES 90 40 - 149 mg/dL [facility] HDL CHOLESTEROL 63 >40 mg/dL [facility] CHOL/HDL RATIO 2.22 <4.51 [facility] LDL CHOLESTEROL 59 <131 mg/dL [facility] PATIENT STATUS Fasting [facility] Blood specimen (specimen) BLOOD SPECIMEN / Unknown 10/26/2008 11:02 AM CDT 10/26/2008 10:52 AM CDT Yue Nguyen VACUUM APPLICATOR OPERATOR CHEMISTRY [facility] INTERNAL ZIP [id number] [address] from Last 3 Months or Most Recently Relevant to Health Maintenance Care Teams Photostatic Copy Maker Relationship Specialty Start Date End Date NavarroMay Matt, MAURICIO [address] [place] [address] PCP - General Physician Tooling Supervisor 06/23/15
--- OUTSIDE RECORDS SUMMARY | 2024-01-05 14:47 | XMS_ITS | Clinical Summary ---
Author Organization [facility] Address [address] 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
== END 2024-01-05 14:45 | disposition home or self-care (01) ==
LOC: MAMMO 14:44
PROVIDERS: PCP Physician Assistant Medical; Visit Provider Surgery
DX: Z12.31 Encounter for screening mammogram for malignant neoplasm of breast (principal); R92.343 Mammographic extreme density, bilateral breasts
CPT/HCPCS: 77063; 77067

== ENCOUNTER 2024-02-20 09:12 | Outpatient (CLI) | payer BC, SELFPAY | END 2024-02-20 09:13 | disposition home or self-care (01) | PROVIDERS: PCP Physician Assistant Medical; Visit Provider Physician Assistant | DX: E03.9 Hypothyroidism, unspecified (principal); Z13.220 Encounter for screening for lipoid disorders; Z79.899 Other long term (current) drug therapy | CPT/HCPCS: 80053; 80061; 84443 ==

== ENCOUNTER 2024-08-25 14:23 | Outpatient (CLI) | payer BC, SELFPAY ==
--- NOTE | 2024-08-25 14:30 | MR_ITS ---
Patient: NINO MCINTOSH Facility:?[facility] Patient ID:?[id number] Site Patient ID:?[id number]. Site :?[id number] Study:?MRI-Breast Bilateral W/WO 15 CC DOTAREM-08/25/2024 3:58:56 PM Ordering Physician:Cedrick Mcdermott Final Report: BILATERAL BREAST MRI WITHOUT AND WITH GADOLINIUM CLINICAL HISTORY: History of ALH and family history of breast cancer, dense breasts on mammography INDICATION FOR BREAST MRI: Screening in the swollen with increased risk for breast cancer COMPARISON STUDIES: Bilateral mammogram 01/05/2024, MRI 06/23/2023, 12/09/2021 CONTRAST: 15 mL Dotarem IV TECHNIQUE: The patient was positioned prone using a breast coil. Multiple imaging sequences were obtained using 1-1.5 mm thick slices with no gap. The image sequences include T2-weighted STIR in the axial plane, T1-weighted nonfat-saturated gradient echo in the axial plane, pre- and post-contrast T1-weighted FLASH 3D with fat suppression in the axial plane, and T1-weighted FLASH high resolution 3D with fat suppression in the sagittal plane. Image post-processing was performed on a [employer] workstation. Complex 3D rendering including maximum intensity projections (MIPS) and volumetric renderings were obtained to optimize visualization of the extent of pathology and relationship to the nipple, skin, and chest wall. This aids in determining feasibility of breast conservation surgery. Subtraction, multiplanar reconstruction, mean curve determination, and angiogenesis mapping were also performed. The study was technically adequate. FINDINGS: Amount of Fibroglandular Tissue: Heterogeneous Breast Background Enhancement: Mild RIGHT Breast: No suspicious mass or non-mass enhancement LEFT Breast: No suspicious mass or non mass enhancement Lymph Nodes: Lymph nodes are within normal limits IMPRESSIONS AND RECOMMENDATIONS: Negative for signs of malignancy.. Follow-up with annual screening mammography. If continuing breast MRI this best offset from the mammogram by 6 months BI-RADS: 2-benign Dictated by Julienne Renteria MD @ 08/26/2024 9:34:59 AM Signed by:?Julienne Renteria MD @08/26/2024 9:34:59 AM (Electronic Signature)
== END 2024-08-25 14:24 | disposition home or self-care (01) ==
LOC: MRI 14:24
PROVIDERS: PCP Physician Assistant Medical; Visit Provider Surgery
DX: N60.91 Unspecified benign mammary dysplasia of right breast (principal); Z91.89 Other specified personal risk factors, not elsewhere classified
CPT/HCPCS: 77049; A9575